=== PATIENT | female | born 1960 | race Caucasian/White ===

== ENCOUNTER 2018-03-25 14:21 | Emergency (ER) | payer SELFPAY ==
[2018-03-25 15:19] LABS: ABSOLUTE BASOPHILS # (AUTO) 0.1 10^3/uL (0.0-0.2); ABSOLUTE LYMPHOCYTES (AUTO) 1.7 10^3/uL (0.5-4.7); ABSOLUTE MONOCYTES (AUTO) 0.3 10^3/uL (0.1-1.4); ABSOLUTE NEUT (AUTO) 3.4 10^3/uL (1.7-8.2); BASOPHILS % (AUTO) 1.2 % (0-2); EOSINOPHILS % (AUTO) 0.9 % (0-6); HEMATOCRIT 35.4 % (36.0-47.0); HEMOGLOBIN 12.2 g/dL (12.0-15.5); LYMPHOCYTES % (AUTO) 30.2 % (13-45); MEAN CORPUSCULAR HEMOGLOBIN 30.1 pg (27.0-33.4); MEAN CORPUSCULAR HGB CONC 34.5 g/dL (32.0-36.0); MEAN CORPUSCULAR VOLUME 87 fl (80-97); MONOCYTES % (AUTO) 5.7 % (3-13); PLATELET COUNT 296 10^3/uL (150-450); RED BLOOD COUNT 4.05 10^6/uL (3.72-5.28); RED CELL DISTRIBUTION WIDTH 13.2 % (11.5-14.0); TOTAL CELLS COUNTED % (AUTO) 100 %; WHITE BLOOD COUNT 5.5 10^3/uL (4.0-10.5)
--- NOTE | 2018-03-25 15:39 | ER Document Report ---
ED General - General Chief Complaint: Neck Problem Stated Complaint: NECK PAIN Time Seen by Provider: 03/25/18 14:40 Primary Care Provider: JAYNA ABRAHAM [Primary Care Provider] - Follow up as needed TRAVEL OUTSIDE OF THE [place] IN LAST 30 DAYS: No - HPI Notes: Patient is a 58-year-old female that presents to the emergency department for chief complaint of left neck mass. Patient noticed swelling on the left side of her neck about 1 week ago. She states it minimally fluctuates in size but has not significantly changed since she first noticed it. She states yesterday there was an aching sensation over her left face and neck which has resolved today. She denies any redness or drainage from the area. She denies any injury to the area. She denies any difficulty breathing or swallowing. She denies any chest pain, shortness of breath, fevers or chills. She has had upper respiratory congestion for the last few weeks and had been taking lplx-ivd-icixcre medications. Past Medical History: Negative Past Surgical History: , left knee surgery Social History: Quit tobacco in 2013. Occasional alcohol use. Denies drug use. Family History: Reviewed and noncontributory for presenting illness Allergies: Reviewed, see documented allergy list. REVIEW OF SYSTEMS: CONSTITUTIONAL : No fever No chills No diaphoresis No recent illness EENT: Neck mass No vision changes congestion No sore throat CARDIOVASCULAR: No chest pain No palpitations RESPIRATORY: No shortness of breath No cough No difficulty breathing GASTROINTESTINAL: No abdominal pain No nausea No vomiting No diarrhea GENITOURINARY: No dysuria No hematuria No difficulty urinating MUSCULOSKELETAL: No back pain No leg pain No arm pain SKIN: No rashes No lesions LYMPHATIC: No swollen, enlarged glands. NEUROLOGICAL: No lightheadedness No headache No weakness No paresthesias PSYCHIATRIC: No anxiety No depression PHYSICAL EXAMINATION: Vital signs reviewed, nursing noted reviewed. GENERAL: Well-appearing, well-nourished and in no acute distress. HEAD: Atraumatic, normocephalic. EYES: Eyes appear normal, extraocular movements intact, sclera anicteric, conjunctiva are normal. ENT: nares patent, oropharynx clear without exudates. Moist mucous membranes. NECK: Normal range of motion, supple, 5.5 cm x 4.5 cm soft mobile nontender left lateral neck mass LUNGS: No stridor breath sounds clear to auscultation bilaterally and equal. No wheezes rales or rhonchi. HEART: Regular rate and rhythm without murmurs ABDOMEN: Soft, nontender, normoactive bowel sounds. No rebound, guarding, or rigidity. No masses appreciated. EXTREMITIES: Nontender, good range of motion, no pitting or edema. NEUROLOGICAL: No focal neurological deficits. Moves all extremities spontaneously Motor and sensory grossly intact on exam. PSYCH: Normal mood, normal affect. SKIN: Warm, Dry, normal turgor, no rashes or lesions noted on exposed skin - Related Data Allergies/Adverse Reactions: No Known Allergies Allergy (Verified 03/25/18 14:22) Past Medical History - Social History Smoking Status: Former Smoker Chew tobacco use (# tins/day): No Frequency of alcohol use: Occasional Drug Abuse: None Family History: Reviewed & Not Pertinent Patient has suicidal ideation: No Patient has homicidal ideation: No Renal/ Medical History: Denies: Hx Peritoneal Dialysis Past Surgical History: Reports: Hx Section - x2, Hx Orthopedic Surgery - l knee Physical Exam - Vital signs Vitals: Temp Pulse Resp BP Pulse Ox 98.0 F 99 18 147/79 H 99 03/25/18 14:26 03/25/18 14:26 03/25/18 14:26 03/25/18 14:26 03/25/18 14:26 Course - Re-evaluation Re-evalutation: 03/25/18 15:38 Vitals reviewed. Nursing notes reviewed. Patient has a 4.5 x 5.5 cm left lateral neck mass that is soft without tenderness. She is in no respiratory distress and has no complaints of cough or difficulty breathing. Patient does have a history of tobacco use and CT will be obtained to evaluate this mass further. Patient has no leukocytosis or fever and does not appear acutely toxic. 03/25/18 17:17 CT scan shows an enlarged left lateral neck lymph node concerning for malignancy. Dr. Diaz was available and evaluated the patient in the emergency room. She will follow office for further workup next week. The remainder of her lab work today is unremarkable. She was discharged home in stable condition with return precautions. Laboratory 03/25/18 03/25/18 15:07 15:07 WBC 5.5 RBC 4.05 Hgb 12.2 Hct 35.4 L MCV 87 MCH 30.1 MCHC 34.5 RDW 13.2 Plt Count 296 Seg Neutrophils % 62.0 Lymphocytes % 30.2 Monocytes % 5.7 Eosinophils % 0.9 Basophils % 1.2 Absolute Neutrophils 3.4 Absolute Lymphocytes 1.7 Absolute Monocytes 0.3 Absolute Eosinophils 0.0 Absolute Basophils 0.1 Sodium 142.6 Potassium 3.8 Chloride 103 Carbon Dioxide 29 Anion Gap 11 BUN 18 Creatinine 0.77 Est GFR ( Amer) > 60 Est GFR (Non-Af Amer) > 60 Glucose 94 Calcium 9.9 Total Bilirubin 0.3 Direct Bilirubin 0.3 Neonat Total Bilirubin Not Reportable Neonat Direct Bilirubin Not Reportable Neonat Indirect Bili Not Reportable AST 24 ALT 24 Alkaline Phosphatase 73 Total Protein 7.5 Albumin 4.[address] 03/25/18 14:45 IMPRESSION: 3 x 3 x 2 cm left level 3 lymph node in the neck worrisome for malignancy. Left vocal cord paralysis - Vital Signs Vital signs: Temp Pulse Resp BP Pulse Ox 98.0 F 99 18 147/79 H 99 03/25/18 14:26 03/25/18 14:26 03/25/18 14:26 03/25/18 14:26 03/25/18 14:26 - Laboratory Result Diagrams: 03/25/18 15:07 03/25/18 15:07 Laboratory results interpreted by me: 03/25/18 15:07 Hct 35.4 L Discharge - Discharge Clinical Impression: Mass of left side of neck Condition: Stable Disposition: HOME, SELF-CARE Instructions: Growth or Mass, Pending Workup (OM) Additional Instructions: Please return to the emergency department if you have any worsening, or concern of your symptoms. Please return to the emergency department if you develop chest pain, difficulty breathing, severe abdominal pain, or ongoing vomiting. Please follow-up with your primary care physician in 2-3 days and any other recommended physicians. If prescribed, take all medications as directed. If you have any questions or concerns do not hesitate to return the emergency department for evaluation. Referrals: SOLANGE DIAZ MD [ACTIVE STAFF] - Follow up in 3-5 days
[2018-03-25 15:43] LABS: ALANINE AMINOTRANSFERASE 24 U/L (9-52); ALBUMIN 4.7 g/dL (3.5-5.0); ALKALINE PHOSPHATASE 73 U/L (38-126); ANION GAP 11 (5-19); ASPARTATE AMINO TRANSFERASE 24 U/L (14-36); BILIRUBIN,DIRECT 0.3 mg/dL (0.0-0.4); BILIRUBIN,TOTAL 0.3 mg/dL (0.2-1.3); BLOOD UREA NITROGEN 18 mg/dL (7-20); CALCIUM 9.9 mg/dL (8.4-10.2); CARBON DIOXIDE 29 mmol/L (22-30); CHLORIDE 103 mmol/L (98-107); GLUCOSE 94 mg/dL (75-110); POTASSIUM 3.8 mmol/L (3.6-5.0); SODIUM 142.6 mmol/L (137-145); TOTAL PROTEIN 7.5 g/dL (6.3-8.2)
--- NOTE | 2018-03-25 16:56 | RADIOLOGY REPORT (SQ) ---
EXAM DESCRIPTION: CT SOFT TISSUE NECK WITH COMPLETED DATE/TIME: 03/25/2018 4:38 pm REASON FOR STUDY: Left neck lymph node/smoking history COMPARISON: None. TECHNIQUE: Post IV contrasted scanning from skull base through lung apices with review of bone, soft tissue and lung windows. Reconstructed coronal and sagittal MPR images reviewed. All images stored on PACS. All CT scanners at this facility use dose modulation, iterative reconstruction, and/or weight based d osing when appropriate to reduce radiation dose to as low as reasonably achievable (ALARA). [facility]: Dose Right [facility]: CareDose [facility]: Dose Right [facility]: Teradose 4D [facility]: MD Revolution CONTRAST TYPE AND DOSE: contrast/concentration: Isovue 350.00 mg/ml; Total Contrast Delivered: 75.0 ml; Total Saline Delivered: 33.8 ml RENAL FUNCTION: Creatinine 0.8 RADIATION DOSE: CT Rad equipment meets quality standard of care and radiation dose reduction techniq ues were employed. CTDIvol: 15.6 mGy. DLP: 478 mGy-cm. . LIMITATIONS: None. FINDINGS: SKULL BASE: Inferior brain parenchyma unremarkable MAJOR SALIVARY GLANDS: No solid or cystic masses. No inflammatory changes. LYMPHADENOPATHY: A 3 cm craniocaudad by 3 cm AP x 2 cm transverse left level 3 lymph node is present on axial image 62 and coronal image 40. MUCOSAL MASSES OR ASYMMETRY: No mucosal masses or asymmetry. LARYNX/CORDS: Left vocal cord paralysis is suspected. Medial displacement of the left arytenoid cart ilage is present VASCULAR STRUCTURES: The major vessels are patent. LUNG APICES: Clear. BONES: Intact. THYROID: Normal size. No masses. PARANASAL SINUSES: Clear. OTHER: Images of the upper mediastinum and bilateral lung apices fell through the rosa isela unremarkabl e. No upper mediastinal masses or adenopathy IMPRESSION: 3 x 3 x 2 cm left level 3 lymph node in the neck worrisome for malignancy. Left vocal cord paralysis TECHNICAL DOCUMENTATION: JOB ID: [id number] Quality ID # [id number]: Final reports with documentation of one or more dose reduction techniques (e.g., Au tomated exposure control, adjustment of the mA and/or kV according to patient size, use of iterative reconstruction technique) 2010 [employer] All Rights Reserved Reading location - IP/workstation name: [email or web address]
--- NOTE | 2018-03-25 17:19 | ER Document Report ---
ED Medical Screen (RME) - General Chief Complaint: Neck Problem Stated Complaint: NECK PAIN Time Seen by Provider: 03/25/18 14:40 Primary Care Provider: JAYNA ABRAHAM [Primary Care Provider] - Follow up as needed TRAVEL OUTSIDE OF THE [place] IN LAST 30 DAYS: No - Related Data Allergies/Adverse Reactions: No Known Allergies Allergy (Verified 03/25/18 14:22) Physical Exam - Vital signs Vitals: Temp Pulse Resp BP Pulse Ox 98.0 F 99 18 147/79 H 99 03/25/18 14:26 03/25/18 14:26 03/25/18 14:26 03/25/18 14:26 03/25/18 14:26 Course - Vital Signs Vital signs: Temp Pulse Resp BP Pulse Ox 98.0 F 99 18 147/79 H 99 03/25/18 14:26 03/25/18 14:26 03/25/18 14:26 03/25/18 14:26 03/25/18 14:26 Doctor's Discharge - Discharge Referrals: JAYNA ABRAHAM [Primary Care Provider] - Follow up as needed
[2018-03-25 17:31] VITALS: BP 144/69
--- NOTE | 2018-03-25 18:03 | PDOC CONSULTATION ---
Consultation Consult Date: 03/25/18 Attending physician:: TOBY HAMILTON Consult reason:: Newly diagnosed left neck adenopathy History of Present Illness Admission Date/PCP: NO LOCALMD Patient complains of: New left neck adenopathy History of Present Illness: BLAIR FULTON is a 58 year old female with newly noted left neck adenopathy, she noticed this lymph node, about 10 days ago and has increased in size. Of note she has had what she feels like is a sinus infection over the last 3 weeks. She denies any weight loss, no fevers chills night sweats, no pain anywhere else. She does have a strong family history of cancer with her mother of breast cancer and a sister of liver cancer. CT of the neck was done which showed a 3 cm left cervical chain lymph node. There is a palpable abnormality 3 x 3 cm in the left neck. Past Medical History Medical History: None Past Surgical History Past Surgical History: Reports: Section - x2, Orthopedic Surgery - l knee Social History Smoking Status: Former Smoker Hx Recreational Drug Use: No Drugs: None Hx Prescription Drug Abuse: No - Advance Directive Resuscitation Status: Full Code Family History Family History: Other - Mother had breast cancer, sister had liver cancer Parental Family History Reviewed: Yes Children Family History Reviewed: Yes Sibling(s) Family History Reviewed.: Yes Medication/Allergy Allergies/Adverse Reactions: No Known Allergies Allergy (Verified 03/25/18 14:22) Review of Systems Constitutional: ABSENT: chills, fever(s), headache(s), weight gain, weight loss Eyes: ABSENT: visual disturbances Ears: ABSENT: hearing changes Cardiovascular: ABSENT: chest pain, dyspnea on exertion, edema, orthropnea, palpitations Respiratory: ABSENT: cough, hemoptysis Gastrointestinal: ABSENT: abdominal pain, constipation, diarrhea, hematemesis, hematochezia, nausea, vomiting Genitourinary: ABSENT: dysuria, hematuria Musculoskeletal: ABSENT: joint swelling Integumentary: ABSENT: rash, wounds Neurological: ABSENT: abnormal gait, abnormal speech, confusion, dizziness, focal weakness, syncope Psychiatric: ABSENT: anxiety, depression, homidical ideation, suicidal ideation Endocrine: ABSENT: cold intolerance, heat intolerance, polydipsia, polyuria Hematologic/Lymphatic: ABSENT: easy bleeding, easy bruising Physical Exam Vital Signs: Temp Pulse Resp BP Pulse Ox 98.0 F 99 18 144/69 H 98 03/25/18 14:26 03/25/18 14:26 03/25/18 17:30 03/25/18 17:30 03/25/18 17:30 Intake & Output 03/24/18 03/25/18 03/26/18 06:59 06:59 06:59 Weight 121.4 kg General appearance: PRESENT: no acute distress, well-developed, well-nourished Head exam: PRESENT: atraumatic, normocephalic Eye exam: PRESENT: conjunctiva pink, EOMI, PERRLA. ABSENT: scleral icterus Ear exam: PRESENT: normal external ear exam Mouth exam: PRESENT: moist, tongue midline Neck exam: ABSENT: carotid bruit, JVD, lymphadenopathy, thyromegaly Respiratory exam: PRESENT: clear to auscultation dario. ABSENT: rales, rhonchi, wheezes Cardiovascular exam: PRESENT: RRR. ABSENT: diastolic murmur, rubs, systolic murmur Pulses: PRESENT: normal dorsalis pedis pul Vascular exam: PRESENT: normal capillary refill GI/Abdominal exam: PRESENT: normal bowel sounds, soft. ABSENT: distended, guarding, mass, organolmegaly, rebound, tenderness Rectal exam: PRESENT: deferred Extremities exam: PRESENT: full ROM. ABSENT: calf tenderness, clubbing, pedal edema Neurological exam: PRESENT: alert, awake, oriented to person, oriented to place, oriented to time, oriented to situation, CN II-XII grossly intact. ABSENT: motor sensory deficit Psychiatric exam: PRESENT: appropriate affect, normal mood. ABSENT: homicidal ideation, suicidal ideation Skin exam: PRESENT: dry, intact, warm. ABSENT: cyanosis, rash Results Laboratory Results: 03/25/18 15:07 03/25/18 15:07 03/25/18 03/25/18 15:07 15:07 WBC 5.5 RBC 4.05 Hgb 12.2 Hct 35.4 L MCV 87 MCH 30.1 MCHC 34.5 RDW 13.2 Plt Count 296 Seg Neutrophils % 62.0 Lymphocytes % 30.2 Monocytes % 5.7 Eosinophils % 0.9 Basophils % 1.2 Absolute Neutrophils 3.4 Absolute Lymphocytes 1.7 Absolute Monocytes 0.3 Absolute Eosinophils 0.0 Absolute Basophils 0.1 Sodium 142.6 Potassium 3.8 Chloride 103 Carbon Dioxide 29 Anion Gap 11 BUN 18 Creatinine 0.77 Est GFR ( Amer) > 60 Est GFR (Non-Af Amer) > 60 Glucose 94 Calcium 9.9 Total Bilirubin 0.3 AST 24 ALT 24 Alkaline Phosphatase 73 Total Protein 7.5 Albumin 4.7 Impressions: Soft Tissue Neck CT 03/25/18 14:45 IMPRESSION: 3 x 3 x 2 cm left level 3 lymph node in the neck worrisome for malignancy. Left vocal cord paralysis Status: Image reviewed by me Assessment & Plan - Diagnosis (1) Mass of left side of neck Is this a current diagnosis for this admission?: Yes Plan: Lymphadenopathy noted, we will see patient back in the office and plan for CT of the chest abdomen pelvis. Depending on that we will decide on biopsy route. We also will decide whether PET/CT will be needed. - Time Time Spent: Greater than 70 Minutes
== END 2018-03-25 17:31 | disposition home or self-care (01) ==
LOC: ER 14:21
DX: R59.0 Localized enlarged lymph nodes (principal); J38.01 Paralysis of vocal cords and larynx, unilateral; Z87.891 Personal history of nicotine dependence; Z80.0 Family history of malignant neoplasm of digestive organs; Z80.3 Family history of malignant neoplasm of breast
CPT/HCPCS: 36415; 70491; 80053; 85025; 99284

== ENCOUNTER → 2018-04-11 | Outpatient (CLI) | payer OTHER ==
--- NOTE | 2018-04-12 08:53 | RADIOLOGY REPORT (SQ) ---
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 RADIONUCLIDE AND DOSE: 11.9 mCi F18 FDG The route of agent administration: Intravenous FASTING BLOOD SUGAR: 75 mg/dl CONTRAST TYPE AND DOSE: No CT contrast given. TECHNIQUE: Blood glucose level was verified. Above dose of FDG was injected intravenously. 2-D seg mented attenuation correction images were obtained from the base of the skull to the midthighs. Nonc ontrast CT images were obtained for attenuation correction and fusion with emission images. CT image s were performed without oral or intravenous contrast and are not sensitive for parenchymal lesions. A series of overlapping emission PET images were obtained. Images reviewed and manipulated at [facility] work station by the radiologist. Images stored on PACS. LIMITATIONS: None. FINDINGS: HEAD AND NECK: 3 cm left level 3 node 19.6 SUV. CHEST: No areas of abnormal metabolic activity in the chest. ABDOMEN AND PELVIS: No areas of abnormal metabolic activity in the abdomen or pelvis. Expected physi ologic activity is present in the genitourinary system and bowel. PROXIMAL LOWER EXTREMITIES: No areas of abnormal metabolic activity in the soft tissues of the lower extremities. BONES: No abnormal metabolic activity in the visualized skeleton. ADDITIONAL CT FINDINGS: Subtle medial displacement of the left arytenoid cartilage. OTHER: Blood pool activity 2.6 SUV, liver 3.1 SUV. IMPRESSION: Hypermetabolic left cervical node. No evidence of metastatic disease. TECHNICAL DOCUMENTATION: JOB ID: [id number] [employer] All Rights Reserved Reading location - IP/workstation name: [email or web address]
== END ==
LOC: RAD 17:42
PROVIDERS: ATTEND Internal Medicine
DX: C85.83 Other specified types of non-Hodgkin lymphoma, intra-abdominal lymph nodes (principal); R59.1 Generalized enlarged lymph nodes
CPT/HCPCS: 78815; A9552

== ENCOUNTER → 2018-04-20 | Outpatient (CLI) | payer OTHER ==
--- NOTE | 2018-04-20 12:12 | RADIOLOGY REPORT (SQ) ---
EXAM DESCRIPTION: CHEST PA/LATERAL COMPLETED DATE/TIME: 04/20/2018 12:04 pm REASON FOR STUDY: PRE-OP COMPARISON: None. EXAM PARAMETERS: NUMBER OF VIEWS: two views TECHNIQUE: Digital Frontal and Lateral radiographic views of the chest acquired. RADIATION DOSE: NA LIMITATIONS: none FINDINGS: LUNGS AND PLEURA: No opacities, masses or pneumothorax. No pleural effusion. MEDIASTINUM AND HILAR STRUCTURES: No masses or contour abnormalities. HEART AND VASCULAR STRUCTURES: Heart normal size. No evidence for failure. BONES: No acute findings. HARDWARE: None in the chest. OTHER: No other significant finding. IMPRESSION: 1. NO SIGNIFICANT RADIOGRAPHIC FINDING IN THE CHEST. TECHNICAL DOCUMENTATION: JOB ID: [id number] [employer]- All Rights Reserved Reading location - IP/workstation name: [email or web address]
[2018-04-20 13:37] LABS: HEMATOCRIT 37.4 % (36.0-47.0); MEAN CORPUSCULAR HEMOGLOBIN 30.5 pg (27.0-33.4); MEAN CORPUSCULAR HGB CONC 34.6 g/dL (32.0-36.0); MEAN CORPUSCULAR VOLUME 88 fl (80-97); PLATELET COUNT 279 10^3/uL (150-450); RED BLOOD COUNT 4.25 10^6/uL (3.72-5.28); RED CELL DISTRIBUTION WIDTH 13.2 % (11.5-14.0); WHITE BLOOD COUNT 6.1 10^3/uL (4.0-10.5)
[2018-04-20 14:14] LABS: ANION GAP 11 (5-19); BLOOD UREA NITROGEN 20 mg/dL (7-20); CALCIUM 10.4 mg/dL (8.4-10.2); CARBON DIOXIDE 22 mmol/L (22-30); CHLORIDE 105 mmol/L (98-107); GLUCOSE 95 mg/dL (75-110); POTASSIUM 4.3 mmol/L (3.6-5.0); SODIUM 138.4 mmol/L (137-145)
--- NOTE | 2018-04-20 15:59 | EKG REPORT ---
SEVERITY:- NORMAL ECG - SINUS RHYTHM : Confirmed by: Joni Samaneigo MD 20-Apr-2018 15:58:26
== END ==
LOC: OD 11:52
PROVIDERS: ATTEND Surgery
DX: Z01.810 Encounter for preprocedural cardiovascular examination (principal); Z01.812 Encounter for preprocedural laboratory examination; Z01.818 Encounter for other preprocedural examination
CPT/HCPCS: 36415; 71046; 80048; 85027; 93005; 93010

== ENCOUNTER 2018-04-27 06:48 | Day surgery (SDC) | payer OTHER ==
[~2018-04-27 06:48] MED LIST: CEFAZOLIN 2 GM/D5W RTU 2 GM/50 ML RTUPB IV ONE; CEFAZOLIN 2 GM/D5W RTU 2 GM/50 ML RTUPB IV PRN; FENTANYL CITRATE INJ/PF 100 MCG/2 ML AMPUL ONE; IBUPROFEN 800 MG in NORMAL SALINE 250 ML IV PRN; LACTATED RINGERS 1000 ML IV PRN; LIDOCAINE 0.5% INJ-PF (5 MG/ML) 50 ML SDV SUBCUT PRN; MIDAZOLAM 2 MG/2 ML INJ ONE; ONDANSETRON HCL INJ/PF 4 MG/2 ML SDV ONE; PROPOFOL INJ 200 MG/20 ML VIAL IV ONE
[2018-04-27] MEDS ORDERED: BUPIVACAINE HCL 0.25 % INJ/PF (2.5 MG/1 ML) 30 ML VIAL ONE (07:52)
[2018-04-27] MEDS ORDERED: MEPERIDINE HCL/PF INJ 25 MG/1 ML DISP.SYRIN IV PRN (08:36)
[2018-04-27] MEDS ORDERED: DIPHENHYDRAMINE HCL 50 MG/ML VIAL IV PRN (08:36)
[2018-04-27] MEDS ORDERED: PROMETHAZINE HCL INJ 25 MG/1 ML VIAL IV PRN (08:36)
[2018-04-27] MEDS ORDERED: MORPHINE SULFATE 10 MG/ML INJ IV PRN (08:36)
[2018-04-27] MEDS ORDERED: FENTANYL CITRATE INJ/PF 100 MCG/2 ML AMPUL IV PRN ×3 (08:36)
--- NOTE | 2018-04-27 09:36 | Discharge Summary ---
Discharge Summary (SDC) - Discharge Final Diagnosis: enlarged deep cervical lymph node on the left Date of Surgery: 04/27/18 Discharge Date: 04/27/18 Condition: Stable Treatment or Instructions: Discharge home. Diet as tolerated. Activity: Nonstrenuous. Follow-up with me in 7-10 days. [place] 5/325 mg p.o. every 6 hours as needed for pain. Okay to shower in 48 hours. No tub baths or swimming pools times 2 weeks. Referrals: [facility] [Primary Care Provider] - Discharge Diet: As Tolerated Respiratory Treatments at Home: Deep Breathing/Coughing, Incentive Spirometer Discharge Activity: Balance Activity w/Rest - I am working on a job doing I am doing her stuff for now Report the Following to Your Physician Immediately: Shortness of Breath, Nausea, Vomiting, Fever over 101 Degrees, Unusual Bleeding, Redness, Swelling, Warmth
[2018-04-27] MEDS ORDERED: HYDROCODONE/ACETAMINOPHEN 5-325 MG TABLET PO PRN (09:37)
[2018-04-27] MEDS ORDERED: HYDROCODONE/ACETAMINOPHEN 5-325 MG TABLET ONE (10:06)
[2018-04-27 11:14] VITALS: BP 133/80
--- NOTE | 2018-04-27 11:21 | Operative Report ---
Nonrecallable Operative Report DATE OF SURGERY: 04/27/18 PREOPERATIVE DIAGNOSIS: Enlarged deep cervical lymph node, suspicious for malignancy POSTOPERATIVE DIAGNOSIS: Same OPERATION: Excisional biopsy of deep cervical lymph node on the left SURGEON: MIKA BRAGG ANESTHESIA: GA TISSUE REMOVED OR ALTERED: Deep cervical lymph node on the left COMPLICATIONS: None apparent ESTIMATED BLOOD LOSS: 20 cc PROCEDURE: Drains/implants: None. Procedure in detail: After informed consent was obtained, the patient was brought to the operating room and laid in the supine position. The area of the neck and chest were prepped and draped in a normal sterile fashion. A 4 cm incision was created in the left anterior neck. Dissection was carried through the platysma. Subplatysmal flaps were raised superiorly and inferiorly. The sternocleidomastoid muscle was retracted laterally. Dissection was carried out between the sternocleidomastoid muscle and the trachea. The enlarged lymph node was easily identified. It appeared to be a deep cervical lymph node, immediately adjacent to the jugular vein. Very carefully, the lymph node was from the surrounding structures using sharp and blunt dissection. There was a dense inflammatory/desmoplastic reaction present. Once the lymph node was completely freed, it was passed off the field and sent to pathology. Hemostasis was achieved using 3-0 Vicryl suture ligation. The cavity was then marked with clips. The superior, inferior, medial and lateral borders were marked with medium hemoclips. Once this was completed, the platysma was closed using 3-0 Vicryl suture in simple interrupted fashion. The overlying skin was closed using 4-0 Vicryl Rapide suture in subcuticular fashion. A dressing was placed, and the procedure was concluded. All sponge, instrument, and needle counts were correct x2. Condition: Stable.
[2018-04-27] MEDS ORDERED: SUCCINYLCHOLINE CHLORIDE INJ 200 MG/10 ML VIAL ONE (12:48)
[2018-04-27] MEDS ORDERED: ROCURONIUM BROMIDE INJ 50 MG/5 ML VIAL IV ONE (12:48)
== END 2018-04-27 11:05 | disposition home or self-care (01) ==
LOC: OROUT 06:48
PROVIDERS: ATTEND Surgery
DX: C77.0 Secondary and unspecified malignant neoplasm of lymph nodes of head, face and neck (principal); R05 Cough; Z79.82 Long term (current) use of aspirin; Z79.1 Long term (current) use of non-steroidal anti-inflammatories (NSAID); Z86.73 Personal history of transient ischemic attack (TIA), and cerebral infarction without residual deficits
CPT/HCPCS: 38510; 88305 ×2; J2250; J3490; J3010; J0330; J2405; J7050; J2704; J0690; J1741; 320; 88184; 88185; 88233; 88262

== ENCOUNTER 2018-05-05 09:57 | Day surgery (SDC) | payer OTHER ==
[~2018-05-05 09:57] MED LIST changes: -CEFAZOLIN 2 GM/D5W RTU 2 GM/50 ML RTUPB IV PRN; -FENTANYL CITRATE INJ/PF 100 MCG/2 ML AMPUL ONE; -IBUPROFEN 800 MG in NORMAL SALINE 250 ML IV PRN; -LACTATED RINGERS 1000 ML IV PRN; -LIDOCAINE 0.5% INJ-PF (5 MG/ML) 50 ML SDV SUBCUT PRN; -MIDAZOLAM 2 MG/2 ML INJ ONE; -ONDANSETRON HCL INJ/PF 4 MG/2 ML SDV ONE; -PROPOFOL INJ 200 MG/20 ML VIAL IV ONE
[2018-05-05] MEDS ORDERED: GLYCOPYRROLATE 1 MG/5 ML SYRINGE ONE (10:30)
[2018-05-05] MEDS ORDERED: ROCURONIUM BROMIDE INJ 50 MG/5 ML VIAL IV ONE (10:30)
[2018-05-05] MEDS ORDERED: DEXAMETHASONE SOD PHOSPHATE INJ 4 MG/1 ML VIAL ONE (10:30)
[2018-05-05] MEDS ORDERED: ONDANSETRON HCL INJ/PF 4 MG/2 ML SDV ONE (10:30)
[2018-05-05] MEDS ORDERED: SUCCINYLCHOLINE CHLORIDE INJ 200 MG/10 ML VIAL ONE (10:30)
[2018-05-05] MEDS ORDERED: BUPIVACAINE HCL 0.5%/EPI 1:200000 INJ 1.8 ML CARTRIDGE ONE ×2 (11:17→11:46)
[2018-05-05] MEDS ORDERED: ACETAMINOPHEN 1,000 MG/100 ML RTUPB IV ONE (11:58)
[2018-05-05] MEDS ORDERED: MIDAZOLAM 2 MG/2 ML INJ ONE (11:58)
[2018-05-05] MEDS ORDERED: FENTANYL CITRATE INJ/PF 100 MCG/2 ML AMPUL ONE ×3 (11:58→18:51)
[2018-05-05] MEDS ORDERED: PROPOFOL INJ 200 MG/20 ML VIAL IV ONE (11:58)
--- NOTE | 2018-05-05 15:01 | RADIOLOGY REPORT (SQ) ---
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 TECHNIQUE: Dynamic and static malik-scale images acquired of the LEFT NECK SOFT TISSUES. Additional cine loop images were obtained. LIMITATIONS: None. FINDINGS: Patient is post left neck lymph node dissection, with surgical biopsy of a 3 cm lymph node deep to the sternocleidomastoid. On today's ultrasound exam, a bilobed complex fluid collection is present deep to the left sternoclei domastoid muscle, likely a hematoma/seroma. Abscess could not entirely be excluded. Along the more superior portion, this hematoma appears more solid, measuring about 2.4 x 2 cm in size. Along its in ferior aspect, the hematoma is fluid with septations measuring 3 x 4 cm in size. On the cine loop images, the left carotid artery and jugular vein are grossly patent. Findings discussed with Dr. Montez IMPRESSION: Dumbbell-shaped complex fluid collection deep to the left sternocleidomastoid muscle lik sandy represents a hematoma. Abscess could not entirely be excluded. Findings discussed with Dr. Nehemias maldonado TECHNICAL DOCUMENTATION: JOB ID: [id number] [employer]- All Rights Reserved Reading location - IP/workstation name: [email or web address]
[2018-05-05] MEDS ORDERED: OXYMETAZOLINE HCL 0.05% NASAL SPRAY 15 ML BOTTLE ONE (15:39)
[2018-05-05] MEDS ORDERED: PROMETHAZINE HCL INJ 25 MG/1 ML VIAL IV PRN ×2 (15:43→18:49)
[2018-05-05] MEDS ORDERED: FENTANYL CITRATE INJ/PF 100 MCG/2 ML AMPUL IV PRN ×5 (15:43→18:49)
[2018-05-05] MEDS ORDERED: DIPHENHYDRAMINE HCL 50 MG/ML VIAL IV PRN ×2 (15:43→18:49)
[2018-05-05] MEDS ORDERED: MEPERIDINE HCL/PF INJ 25 MG/1 ML DISP.SYRIN IV PRN ×2 (15:43→18:49)
[2018-05-05] MEDS ORDERED: ONDANSETRON HCL INJ/PF 4 MG/2 ML SDV IV PRN ×2 (18:49→18:54)
[2018-05-05] MEDS ORDERED: MORPHINE SULFATE 10 MG/ML INJ IV PRN (18:49)
[2018-05-05] MEDS: FENTANYL CITRATE INJ/PF 100 MCG/2 ML AMPUL IV PRN ×2 (18:53→19:05)
[2018-05-05] MEDS ORDERED: OXYCODONE-ACETAMINOPHEN 5-325 MG TABLET PO PRN (18:54)
[2018-05-05] MEDS ORDERED: OXYCODONE-ACETAMINOPHEN 5-325 MG TABLET ONE ×2 (19:57→20:15)
[2018-05-05 21:09] VITALS: BP 142/66
--- NOTE | 2018-05-05 21:54 | OPERATIVE REPORT E ---
Operative Report NAME: BLAIR FULTON : 1960 AGE: 58Y DATE OF SURGERY: 05/05/2018 ROOM: PREOPERATIVE DIAGNOSES: 1. LEFT NECK METASTATIC SQUAMOUS CELL CARCINOMA. 2. LEFT NECK HEMATOMA/SEROMA. 3. HISTORY OF RECENT LEFT NECK SURGERY. 4. CHRONIC TONSILLITIS. 5. BILATERAL TONSIL STONES. POSTOPERATIVE DIAGNOSES: 1. LEFT NECK METASTATIC SQUAMOUS CELL CARCINOMA. 2. LEFT NECK HEMATOMA/SEROMA. 3. HISTORY OF RECENT LEFT NECK SURGERY. 4. CHRONIC TONSILLITIS. 5. BILATERAL TONSIL STONES. OPERATION PERFORMED: 1. Microscopic direct laryngoscopy with directed biopsies. 2. Upper airway rigid endoscopy with directed biopsies. 3. Bilateral tonsillectomy, patient age greater than 12. 4. Left neck hematoma/seroma evacuation and management. SURGEON: SALLIE GALVAN D.O. ANESTHESIA: General endotracheal tube. ANESTHESIA STAFF: Nahid CLARK and Eunice CLARK. ESTIMATED BLOOD LOSS: 15 mL. FLUIDS: None. COMPLICATIONS: None. DRAINS: One modified Mickie drain at the left neck. NEEDLE COUNT: Verified. SPONGE COUNT: Verified. MATERIALS FORWARDED SPECIMEN: 1. Multiple left subglottic biopsy specimens. 2. Left and right pyriform sinus biopsy specimens. 3. Right hypopharyngeal lateral aspect with lipoma appearing process, which was biopsied. 4. Left and right tonsillar tissue. 5. Left soft palate/lateral tongue mucosal abnormality. 6. Nasopharynx midline with area of erythema, which was biopsied. 7. Left and right base of tongue biopsies. FINDINGS: 1. There was left subglottic fullness. 2. The tonsils were noted to be 2+ in size, or endophytic in nature, or cryptic in appearance, and there was extensive tonsillar debris present bilateral. 3. Left lateral soft palate/lateral tongue mucosal abnormality approximately 1 cm x 0.5 cm in size. 4. Nasopharynx midline with area of mild focal erythema. 5. Left neck with approximately 6 x 6 cm seroma/hematoma which was also noted immediately preoperatively on ultrasound evaluation. 6. Otherwise, the patient was with significant soft palatal tissue redundancy as well as significant redundant oropharyngeal and hypopharyngeal tissues. There was base of tongue fullness. The patient was edentulous. INDICATIONS: This is a 58-year-old white female patient who was seen and evaluated in the [facility] office. The patient had been referred by [facility] Oncology, Dr. Vasquez. The patient had noted a left neck mass and had been referred to oncology for further evaluation. The patient underwent PET/CT imaging with increased SUV activity at the left neck. There was concern for lymphoma and the patient was referred to general surgery for an excisional biopsy, which was performed last week. The approximately 3 x 3 cm size lymph node was positive for metastatic squamous cell carcinoma. The patient was then referred to ENT for evaluation to include endoscopy and directed biopsies. The patient upon endoscopic evaluation in clinic was noted to have an area of left subglottic fullness, which also corresponded to an area of increased SUV activity on recent PET/CT imaging. The recommendation and plan for panendoscopy, microscopic direct laryngoscopy with directed biopsies, and possible tonsillectomy was all discussed in detail with the patient. She voiced an understanding of the described surgical plan, agreed to proceed, and consent was obtained. In the preop holding area on the day of surgery the patient's left neck was noted to be even rios/more pronounced in size. There was concern for a seroma or hematoma process. The patient was sent for a STAT radiology ultrasound evaluation and the radiologist read the imaging out as an approximately 6 x 6 cm size seroma/hematoma process of the left neck. The patient underwent additional surgical counseling with recommendation for evacuation and management of the left neck process, which she voiced an understanding of and agreed with. The risks and complications of all the above mentioned procedures were all discussed in detail with the patient, which she voiced an understanding of, agreed to proceed with, and consent was obtained. DETAILS OF PROCEDURE: The patient was taken to the main operating room and was placed on the operating room table in the supine position. Appropriate monitors placed. Using mask and IV access general anesthesia was induced. The patient was transorally intubated without difficulty. At this point the patient was prepped and draped for microscopic direct laryngoscopy and upper airway endoscopy with directed biopsies. The patient had a mouthguard placed over her upper gums. A rigid laryngoscope was brought into position to visualize the vocal cords and the patient was placed into indirect suspension. The area of the left subglottic had multiple biopsies taken. Afrin-soaked neuro patties were placed. At this point the rigid endoscope was released from suspension. At this point the rigid endoscope was now utilized to perform directed biopsies of the left and right pyriform sinuses, of the right lipoma appearing process at the lateral hypopharynx, and of the bilateral base of tongue areas. At this point the rigid laryngoscope was removed. The microscope was withdrawn. All Afrin-soaked neuro patties were removed. At this point the patient had a [place] mouth gag inserted. It was opened and the patient was placed into suspension. A soft catheter was placed through the patient's nose to suspend the soft palate. At the left lateral soft palate the mucosal abnormality that was noted above was biopsied. Once complete the patient underwent a bilateral tonsillectomy utilizing the plasma knife, which was also used to provide adequate hemostasis. The patient at this point underwent biopsies of the nasopharynx in the midline, an area were the noted erythema was. Suction, electrocautery, along with adenoid packs was used to provide adequate hemostasis. At this point the soft catheter was released from the nose and removed and the [place] mouth gag was released from suspension. It was next reopened and there was again adequate hemostasis noted. The [place] mouth gag was then removed from the patient's mouth and there was no damage to the lips, gums, tongue, or inside of the mouth noted. At this point the Steri-Strips and Dermabond were removed from the patient's left neck and the area was infiltrated with local anesthetic with epinephrine. The patient was then prepped and draped in a sterile fashion for a left neck surgery. The incision site was opened as was the level of the platysma. At this point the seroma/hematoma was evacuated with an extensive area being drained. There were scattered areas of granulation tissue was oozing. Bipolar electrocautery was used to provide adequate hemostasis. Extensive irrigation was performed of the wound site with reasonable hemostasis being noted. At this point Surgicel was placed into the wound bed, followed by placement of a modified Mickie drain that was brought out through the skin level. The neck was closed in a layered fashion with Monocryl suture to reapproximate the platysmal level as well as the subcutaneous and deep dermal layers. The skin was reapproximated with 6-0 Prolene suture. The drain was secured at the skin level with suture. At this point bacitracin ointment was applied to the incision site followed by a Fluffs pressure dressing being applied. The patient was then returned to the anesthesia and was allowed to emerge from general anesthesia. The patient was extubated in the main operating room and was then transported to the postanesthesia recovery unit in stable condition. There were no complications. DICTATING PHYSICIAN: SALLIE GALVAN D.O. [id number] PHY#: [id number] 2016 ID: [id number] JOB#: [id number] ACCT: [id number] cc:SALLIE GALVAN D.O. >
== END 2018-05-05 21:00 | disposition home or self-care (01) ==
LOC: OROUT 09:57
PROVIDERS: ATTEND Otolaryngology
DX: C44.42 Squamous cell carcinoma of skin of scalp and neck (principal); J35.1 Hypertrophy of tonsils; R22.1 Localized swelling, mass and lump, neck; K21.9 Gastro-esophageal reflux disease without esophagitis; M54.2 Cervicalgia; Z86.73 Personal history of transient ischemic attack (TIA), and cerebral infarction without residual deficits; Z87.891 Personal history of nicotine dependence
CPT/HCPCS: 31535; 42826; 10140; 88304 ×2; 88305 ×2; 76536; J2250; J3490 ×4; J1100; J3010; J0330; J2405; J2704; J0690; J0131; 320

== ENCOUNTER 2018-06-10 08:07 | Outpatient (CLI) | payer OTHER ==
[~2018-06-10 08:07] MED LIST changes: -CEFAZOLIN 2 GM/D5W RTU 2 GM/50 ML RTUPB IV ONE; +CISPLATIN 86 MG in NORMAL SALINE 500 ML IV PRN; +DEXAMETHASONE 10 MG in NS 50 ML IV PRN; +FOSAPREPITANT 150 MG in NS 150 ML IV PRN; +FUROSEMIDE INJ/PF 20 MG/2 ML SDV IV PRN; +NORMAL SALINE 500 ML IV PRN; +PALONOSETRON 0.25 MG/5 ML SDV IV PRN
[2018-06-10 09:21] VITALS: BP 132/76
== END 2018-06-10 12:48 | disposition home or self-care (01) ==
LOC: II 08:07 → 5TH 08:22 → II 12:48
PROVIDERS: ATTEND Internal Medicine
DX: C76.0 Malignant neoplasm of head, face and neck (principal); Z51.11 Encounter for antineoplastic chemotherapy
CPT/HCPCS: 96413; 96415; 96367; 96375; 96360; 96361; J9060; J1940; J7040; J1100; J1453; J2469; J7050

== ENCOUNTER 2018-06-16 06:39 | Day surgery (SDC) | payer OTHER ==
[~2018-06-16 06:39] MED LIST changes: +CEFAZOLIN 2 GM/D5W RTU 2 GM/50 ML RTUPB IV ONE; +CEFAZOLIN 2 GM/D5W RTU 2 GM/50 ML RTUPB IV PRN; -CISPLATIN 86 MG in NORMAL SALINE 500 ML IV PRN; -DEXAMETHASONE 10 MG in NS 50 ML IV PRN; -FOSAPREPITANT 150 MG in NS 150 ML IV PRN; -FUROSEMIDE INJ/PF 20 MG/2 ML SDV IV PRN; -NORMAL SALINE 500 ML IV PRN; -PALONOSETRON 0.25 MG/5 ML SDV IV PRN; +RINGERS SOLUTION,LACTATED 1,000 ML IV PRN
[2018-06-16 07:20] LABS: ABSOLUTE LYMPHOCYTES (AUTO) 0.8 10^3/uL (0.5-4.7); ABSOLUTE MONOCYTES (AUTO) 0.6 10^3/uL (0.1-1.4); ABSOLUTE NEUT (AUTO) 5.8 10^3/uL (1.7-8.2); BASOPHILS % (AUTO) 0.3 % (0-2); EOSINOPHILS % (AUTO) 0.7 % (0-6); HEMATOCRIT 35.5 % (36.0-47.0); HEMOGLOBIN 11.9 g/dL (12.0-15.5); LYMPHOCYTES % (AUTO) 10.8 % (13-45); MEAN CORPUSCULAR HEMOGLOBIN 29.6 pg (27.0-33.4); MEAN CORPUSCULAR HGB CONC 33.6 g/dL (32.0-36.0); MEAN CORPUSCULAR VOLUME 88 fl (80-97); MONOCYTES % (AUTO) 7.9 % (3-13); PLATELET COUNT 379 10^3/uL (150-450); RED BLOOD COUNT 4.03 10^6/uL (3.72-5.28); RED CELL DISTRIBUTION WIDTH 12.8 % (11.5-14.0); SEGMENTED NEUTROPHILS % (AUTO) 80.3 % (42-78); TOTAL CELLS COUNTED % (AUTO) 100 %; WHITE BLOOD COUNT 7.3 10^3/uL (4.0-10.5)
[2018-06-16 07:48] LABS: ANION GAP 13 (5-19); BLOOD UREA NITROGEN 20 mg/dL (7-20); CALCIUM 10.5 mg/dL (8.4-10.2); CARBON DIOXIDE 30 mmol/L (22-30); CHLORIDE 97 mmol/L (98-107); GLUCOSE 102 mg/dL (75-110); POTASSIUM 4.3 mmol/L (3.6-5.0); SODIUM 140.3 mmol/L (137-145)
[2018-06-16] MEDS ORDERED: LIDOCAINE 0.5% INJ-PF (5 MG/ML) 50 ML SDV ONE (07:54)
[2018-06-16] MEDS ORDERED: FENTANYL CITRATE INJ/PF 100 MCG/2 ML AMPUL ONE (07:54)
[2018-06-16] MEDS ORDERED: MIDAZOLAM 2 MG/2 ML INJ ONE ×3 (07:54→08:47)
[2018-06-16] MEDS ORDERED: BACITRACIN INJ 50,000 UNIT VIAL ONE (07:55)
[2018-06-16 10:50] VITALS: BP 147/81
--- NOTE | 2018-06-16 11:05 | RADIOLOGY REPORT (SQ) ---
EXAM DESCRIPTION: PORTACATH INSERTION COMPLETED DATE/TIME: 06/16/2018 10:08 am REASON FOR STUDY: R22.1 NECK MASS R22.1 LOCALIZED SWELLING, MASS AND LUMP, NECK COMPARISON: None. FLUOROSCOPY TIME: 0.5 minutes 3 images saved to PACS. TECHNIQUE: Intra-operative images acquired during surgical procedure to evaluate progress. NUMBER OF IMAGES: 3 LIMITATIONS: None. FINDINGS: Intraoperative fluoroscopic images obtained to evaluate progress. Evidence of right inter nal jugular based chest port placement with catheter tip at SVC. Please see operative report for det pratima description. IMPRESSION: IMAGE(S) OBTAINED DURING PROCEDURE. COMMENT: Quality ID [id number]: Final reports for procedures using fluoroscopy that document radiation exp osure indices, or exposure time and number of fluorographic images (if radiation exposure indices are not available) Please consult full operative report of the attending physician for description of the procedure. TECHNICAL DOCUMENTATION: JOB ID: [id number] [employer]- All Rights Reserved Reading location - IP/workstation name: [email or web address]
[2018-06-16 12:37] LABS: ALANINE AMINOTRANSFERASE 31 U/L (9-52); ALBUMIN 4.2 g/dL (3.5-5.0); ALKALINE PHOSPHATASE 115 U/L (38-126); ANION GAP 12 (5-19); ASPARTATE AMINO TRANSFERASE 23 U/L (14-36); BILIRUBIN,DIRECT 0.4 mg/dL (0.0-0.4); BILIRUBIN,TOTAL 0.4 mg/dL (0.2-1.3); BLOOD UREA NITROGEN 19 mg/dL (7-20); CALCIUM 10.6 mg/dL (8.4-10.2); CARBON DIOXIDE 28 mmol/L (22-30); CHLORIDE 99 mmol/L (98-107); GLUCOSE 121 mg/dL (75-110); POTASSIUM 4.2 mmol/L (3.6-5.0); SODIUM 138.7 mmol/L (137-145); TOTAL PROTEIN 7.5 g/dL (6.3-8.2)
--- NOTE | 2018-06-16 14:37 | Discharge Summary ---
Discharge Summary (SDC) - Discharge Final Diagnosis: Head and neck cancer Date of Surgery: 06/16/18 Discharge Date: 06/16/18 Condition: Stable Forms: Sedation D/C Instructions, Discharge POC-Surgical Service Treatment or Instructions: Discharge home. Diet as tolerated. Activity: Nonstrenuous. Okay to use Mediport. Follow-up with me as needed. Referrals: MIKA BRAGG MD [ACTIVE STAFF] - (Follow up as needed) Discharge Diet: As Tolerated Respiratory Treatments at Home: Deep Breathing/Coughing, Incentive Spirometer Discharge Activity: Activity As Tolerated Home Care Assistance: None Needed Report the Following to Your Physician Immediately: Shortness of Breath, Nausea, Vomiting, Increase in Pain, Fever over 101 Degrees, Unusual Bleeding
--- NOTE | 2018-06-16 14:42 | Operative Report ---
Nonrecallable Operative Report DATE OF SURGERY: 06/16/18 PREOPERATIVE DIAGNOSIS: Head and neck cancer POSTOPERATIVE DIAGNOSIS: Same as above OPERATION: 1. Ultrasound-guided central venous puncture. 2. Right internal jugular vein Mediport placement. SURGEON: MIKA BRAGG ANESTHESIA: Moderate Sedation TISSUE REMOVED OR ALTERED: None COMPLICATIONS: None apparent ESTIMATED BLOOD LOSS: Minimal PROCEDURE: Drains/implants: Right IJ Mediport. Procedure in detail: After informed consent was obtained, the patient was brought into the Principal Programmer and laid in the supine position. The area of the right neck and chest were prepped and draped in a normal sterile fashion. An ultrasound was used to identify the right internal jugular vein. It was compressible with normal flow. Under direct ultrasonic guidance the supplied access needle was used to cannulate the right internal jugular vein. Dark venous, nonpulsatile blood was returned in the syringe. The wire was inserted into the lumen of the vein easily. The wire was confirmed to be within the vein using both ultrasonography as well as fluoroscopy. Next, a separate incision was created on the right chest to accommodate the Mediport hub. The catheter was tunneled from the Mediport hub site to the needle insertion site. Next the dilator and breakaway sheath were inserted over the wire. This was done under direct fluoroscopic guidance. The dilator and wire were then removed, leaving the sheath within the superior vena cava. Next the catheter was inserted into the breakaway sheath. The sheath was cracked and pulled away, leaving the catheter within the SVC. The catheter was pulled back to an appropriate level and trimmed to length. The Mediport hub was attached, and buried in the pocket. The Mediport hub was sutured to the chest wall using 3-0 Vicryl suture. The subcutaneous tissue was closed using 3-0 Vicryl suture. The overlying skin was closed using 4-0 Vicryl Rapide suture in subcuticular fashion. The Mediport was then accessed and flushed with heparinized saline. Dressings were placed, and the procedure was concluded. All sponge, instrument, and needle counts were correct. Condition: Stable.
== END 2018-06-16 10:40 | disposition home or self-care (01) ==
LOC: CCL 06:39
PROVIDERS: ATTEND Surgery
DX: C76.0 Malignant neoplasm of head, face and neck (principal); R05 Cough; Z86.73 Personal history of transient ischemic attack (TIA), and cerebral infarction without residual deficits; Z79.82 Long term (current) use of aspirin
CPT/HCPCS: 36415; 85025; 80048; 80053; 36561; 76937; 77001; C1788; J2250; J3490 ×2; J3010; J1644; J0690

== ENCOUNTER 2018-06-17 08:26 | Outpatient (CLI) | payer OTHER ==
[~2018-06-17 08:26] MED LIST changes: -CEFAZOLIN 2 GM/D5W RTU 2 GM/50 ML RTUPB IV ONE; -CEFAZOLIN 2 GM/D5W RTU 2 GM/50 ML RTUPB IV PRN; +CISPLATIN 85 MG in NORMAL SALINE 500 ML IV PRN; +DEXAMETHASONE 10 MG in NS 50 ML IV PRN; +FOSAPREPITANT 150 MG in NS 150 ML IV PRN; +FUROSEMIDE INJ/PF 20 MG/2 ML SDV IV PRN; +NORMAL SALINE 500 ML @ KVO IV PRN; +PALONOSETRON 0.25 MG/5 ML VIAL IV PRN; -RINGERS SOLUTION,LACTATED 1,000 ML IV PRN
[2018-06-17 11:09] VITALS: BP 110/67
== END 2018-06-17 13:30 | disposition home or self-care (01) ==
LOC: II 08:26 → 5TH 08:28 → II 13:30
PROVIDERS: ATTEND Internal Medicine
PROC: 3E04305 Introduction of Other Antineoplastic into Central Vein, Percutaneous Approach (ICD-10-PCS; principal; 2018-06-17)
PROC: 3E0433Z Introduction of Anti-inflammatory into Central Vein, Percutaneous Approach (ICD-10-PCS; 2018-06-17)
PROC: 3E043GC Introduction of Other Therapeutic Substance into Central Vein, Percutaneous Approach (ICD-10-PCS; 2018-06-17)
DX: Z51.11 Encounter for antineoplastic chemotherapy (principal); C76.0 Malignant neoplasm of head, face and neck; D64.81 Anemia due to antineoplastic chemotherapy
CPT/HCPCS: 96413; 96415; 96365; 96366; 96374; 96375; 96360; 96361; J9060; J1940; J7050; J7040; J1100; J1642; J1453; J2469; 96367

== ENCOUNTER 2018-06-22 08:16 | Outpatient (CLI) | payer OTHER ==
[~2018-06-22 08:16] MED LIST changes: -CISPLATIN 85 MG in NORMAL SALINE 500 ML IV PRN; -DEXAMETHASONE 10 MG in NS 50 ML IV PRN; -FOSAPREPITANT 150 MG in NS 150 ML IV PRN; -FUROSEMIDE INJ/PF 20 MG/2 ML SDV IV PRN; +NORMAL SALINE 1000 ML 1,000 ML IV PRN; -NORMAL SALINE 500 ML @ KVO IV PRN; -PALONOSETRON 0.25 MG/5 ML VIAL IV PRN; +PROMETHAZINE HCL INJ 25 MG/1 ML VIAL IV PRN
[2018-06-22 09:42] VITALS: BP 136/72
== END 2018-06-22 11:23 | disposition home or self-care (01) ==
LOC: II 08:16 → 5TH 08:23 → II 11:23
PROVIDERS: ATTEND Internal Medicine
PROC: 3E0437Z Introduction of Electrolytic and Water Balance Substance into Central Vein, Percutaneous Approach (ICD-10-PCS; principal; 2018-06-22)
PROC: 3E043GC Introduction of Other Therapeutic Substance into Central Vein, Percutaneous Approach (ICD-10-PCS; 2018-06-22)
DX: E86.0 Dehydration (principal); R11.0 Nausea
CPT/HCPCS: 96374; 96375; 96360; 96361; J2550; J1642

== ENCOUNTER 2018-06-24 08:14 | Outpatient (CLI) | payer OTHER ==
[~2018-06-24 08:14] MED LIST changes: +CISPLATIN 85 MG in NORMAL SALINE 500 ML IV PRN; +DEXAMETHASONE 10 MG in NS 50 ML IV PRN; +FOSAPREPITANT 150 MG in NS 150 ML IV PRN; +FUROSEMIDE INJ/PF 20 MG/2 ML SDV IV PRN; -NORMAL SALINE 1000 ML 1,000 ML IV PRN; +NORMAL SALINE 500 ML @ KVO IV PRN; +PALONOSETRON 0.25 MG/5 ML VIAL IV PRN; -PROMETHAZINE HCL INJ 25 MG/1 ML VIAL IV PRN
[2018-06-24 08:45] VITALS: BP 115/59
== END 2018-06-24 12:18 | disposition home or self-care (01) ==
LOC: II 08:14 → 5TH 08:15 → II 12:18
PROVIDERS: ATTEND Internal Medicine
PROC: 3E04305 Introduction of Other Antineoplastic into Central Vein, Percutaneous Approach (ICD-10-PCS; principal; 2018-06-24)
PROC: 3E0433Z Introduction of Anti-inflammatory into Central Vein, Percutaneous Approach (ICD-10-PCS; 2018-06-24)
PROC: 3E043GC Introduction of Other Therapeutic Substance into Central Vein, Percutaneous Approach (ICD-10-PCS; 2018-06-24)
DX: Z51.11 Encounter for antineoplastic chemotherapy (principal); C76.0 Malignant neoplasm of head, face and neck
CPT/HCPCS: 96413; 96367; 96374; 96375; 96360; J9060; J1940; J7050; J7040; J1100; J1642; J1453; J2469

== ENCOUNTER 2018-06-29 08:07 | Outpatient (CLI) | payer OTHER ==
[~2018-06-29 08:07] MED LIST changes: -CISPLATIN 85 MG in NORMAL SALINE 500 ML IV PRN; -DEXAMETHASONE 10 MG in NS 50 ML IV PRN; -FOSAPREPITANT 150 MG in NS 150 ML IV PRN; -FUROSEMIDE INJ/PF 20 MG/2 ML SDV IV PRN; +NORMAL SALINE 1000 ML 1,000 ML IV PRN; -NORMAL SALINE 500 ML @ KVO IV PRN; -PALONOSETRON 0.25 MG/5 ML VIAL IV PRN; +PROMETHAZINE HCL INJ 25 MG/1 ML VIAL IV PRN
[2018-06-29 08:39] VITALS: BP 128/70
== END 2018-06-29 09:33 | disposition home or self-care (01) ==
LOC: II 08:07 → 5TH 08:09 → II 09:33
PROVIDERS: ATTEND Internal Medicine
PROC: 3E0437Z Introduction of Electrolytic and Water Balance Substance into Central Vein, Percutaneous Approach (ICD-10-PCS; principal; 2018-06-29)
PROC: 3E043GC Introduction of Other Therapeutic Substance into Central Vein, Percutaneous Approach (ICD-10-PCS; 2018-06-29)
DX: E86.0 Dehydration (principal); R11.0 Nausea
CPT/HCPCS: 96374; 96375; 96360; J2550; J1642; 96361

== ENCOUNTER 2018-07-01 08:12 | Outpatient (CLI) | payer OTHER ==
[~2018-07-01 08:12] MED LIST changes: +CISPLATIN 85 MG in NORMAL SALINE 500 ML IV PRN; +DEXAMETHASONE SOD PHOSPHATE 10 MG in NORMAL SALINE 50 ML IV PRN; +FOSAPREPITANT DIMEGLUMINE 150 MG in NORMAL SALINE 150 ML IV PRN; +FUROSEMIDE INJ/PF 20 MG/2 ML SDV IV PRN; -NORMAL SALINE 1000 ML 1,000 ML IV PRN; +NORMAL SALINE 500 ML @ KVO IV PRN; +PALONOSETRON 0.25 MG/5 ML VIAL IV PRN; -PROMETHAZINE HCL INJ 25 MG/1 ML VIAL IV PRN
[2018-07-01 08:22] VITALS: BP 134/63
== END 2018-07-01 12:40 | disposition home or self-care (01) ==
LOC: II 08:12 → 5TH 08:15 → II 12:40
PROVIDERS: ATTEND Internal Medicine
PROC: 3E04305 Introduction of Other Antineoplastic into Central Vein, Percutaneous Approach (ICD-10-PCS; principal; 2018-07-01)
PROC: 3E0433Z Introduction of Anti-inflammatory into Central Vein, Percutaneous Approach (ICD-10-PCS; 2018-07-01)
PROC: 3E043GC Introduction of Other Therapeutic Substance into Central Vein, Percutaneous Approach (ICD-10-PCS; 2018-07-01)
DX: Z51.11 Encounter for antineoplastic chemotherapy (principal); C76.0 Malignant neoplasm of head, face and neck
CPT/HCPCS: 96413; 96415; 96365; 96366; 96374; 96375; 96360; J9060; J1940; J7050; J7040; J1100; J1642; J1453; J2469; 96367

== ENCOUNTER 2018-07-06 08:10 | Outpatient (CLI) | payer OTHER ==
[2018-07-06] MEDS ORDERED: PROMETHAZINE HCL INJ 25 MG/1 ML VIAL IV PRN (08:24)
[2018-07-06] MEDS ORDERED: NORMAL SALINE 1000 ML 1,000 ML IV PRN (08:28)
[2018-07-06 09:09] VITALS: BP 132/62
== END 2018-07-06 10:43 | disposition home or self-care (01) ==
LOC: II 08:10 → 5TH 08:12 → II 10:43
PROVIDERS: ATTEND Internal Medicine
PROC: 3E0437Z Introduction of Electrolytic and Water Balance Substance into Central Vein, Percutaneous Approach (ICD-10-PCS; principal; 2018-07-06)
PROC: 3E043GC Introduction of Other Therapeutic Substance into Central Vein, Percutaneous Approach (ICD-10-PCS; 2018-07-06)
DX: E86.0 Dehydration (principal); R11.0 Nausea
CPT/HCPCS: 96375; 96360; J2550; J1642; 96361; 96374

== ENCOUNTER 2018-07-07 12:19 | Outpatient (CLI) | payer OTHER ==
[~2018-07-07 12:19] MED LIST changes: -CISPLATIN 85 MG in NORMAL SALINE 500 ML IV PRN; -DEXAMETHASONE SOD PHOSPHATE 10 MG in NORMAL SALINE 50 ML IV PRN; -FOSAPREPITANT DIMEGLUMINE 150 MG in NORMAL SALINE 150 ML IV PRN; -FUROSEMIDE INJ/PF 20 MG/2 ML SDV IV PRN; +NORMAL SALINE 1000 ML 1,000 ML IV PRN; -NORMAL SALINE 500 ML @ KVO IV PRN; -PALONOSETRON 0.25 MG/5 ML VIAL IV PRN; +PROMETHAZINE HCL INJ 25 MG/1 ML VIAL IV PRN
[2018-07-07 13:54] VITALS: BP 115/52
== END 2018-07-07 13:56 | disposition home or self-care (01) ==
LOC: II 12:19
PROVIDERS: ATTEND Internal Medicine
PROC: 3E0437Z Introduction of Electrolytic and Water Balance Substance into Central Vein, Percutaneous Approach (ICD-10-PCS; principal; 2018-07-07)
PROC: 3E043GC Introduction of Other Therapeutic Substance into Central Vein, Percutaneous Approach (ICD-10-PCS; 2018-07-07)
DX: E86.0 Dehydration (principal); R11.0 Nausea
CPT/HCPCS: 96374; 96375; 96360; J2550; J1642; 96361

== ENCOUNTER 2018-07-09 13:02 | Outpatient (CLI) | payer OTHER ==
[2018-07-09 13:35] VITALS: BP 127/63
== END 2018-07-09 14:31 | disposition home or self-care (01) ==
LOC: II 13:02
PROVIDERS: ATTEND Internal Medicine
PROC: 3E043GC Introduction of Other Therapeutic Substance into Central Vein, Percutaneous Approach (ICD-10-PCS; principal; 2018-07-09)
PROC: 3E0437Z Introduction of Electrolytic and Water Balance Substance into Central Vein, Percutaneous Approach (ICD-10-PCS; 2018-07-09)
DX: E86.0 Dehydration (principal); R11.0 Nausea
CPT/HCPCS: 96374; 96375; 96360; J2550; J1642; 96361

== ENCOUNTER 2018-07-13 12:58 | Outpatient (CLI) | payer OTHER ==
[2018-07-13 13:32] VITALS: BP 150/71
== END 2018-07-13 14:04 | disposition home or self-care (01) ==
LOC: II 12:58 → 5TH 12:59 → II 14:04
PROVIDERS: ATTEND Internal Medicine
PROC: 3E0437Z Introduction of Electrolytic and Water Balance Substance into Central Vein, Percutaneous Approach (ICD-10-PCS; principal; 2018-07-13)
PROC: 3E043GC Introduction of Other Therapeutic Substance into Central Vein, Percutaneous Approach (ICD-10-PCS; 2018-07-13)
DX: E86.0 Dehydration (principal); R11.0 Nausea
CPT/HCPCS: 96374; 96375; 96360; J2550; J1642; 96361

== ENCOUNTER 2018-07-15 08:26 | Outpatient (CLI) | payer OTHER ==
[~2018-07-15 08:26] MED LIST changes: +CARBOPLATIN IV PRN; +DEXAMETHASONE SOD PHOSPHATE 10 MG in NORMAL SALINE 50 ML IV PRN; -NORMAL SALINE 1000 ML 1,000 ML IV PRN; +NORMAL SALINE 250 ML IV PRN; +NORMAL SALINE IV PRN; +PALONOSETRON 0.25 MG/5 ML SDV IV PRN; -PROMETHAZINE HCL INJ 25 MG/1 ML VIAL IV PRN
[2018-07-15 09:34] VITALS: BP 148/87
== END 2018-07-15 11:07 | disposition home or self-care (01) ==
LOC: II 08:26 → 5TH 08:28 → II 11:07
PROVIDERS: ATTEND Internal Medicine
PROC: 3E04305 Introduction of Other Antineoplastic into Central Vein, Percutaneous Approach (ICD-10-PCS; principal; 2018-07-15)
PROC: 3E0433Z Introduction of Anti-inflammatory into Central Vein, Percutaneous Approach (ICD-10-PCS; 2018-07-15)
PROC: 3E043GC Introduction of Other Therapeutic Substance into Central Vein, Percutaneous Approach (ICD-10-PCS; 2018-07-15)
DX: Z51.11 Encounter for antineoplastic chemotherapy (principal); C76.0 Malignant neoplasm of head, face and neck
CPT/HCPCS: 96413; 96367; 96374; 96375; 96360; J9045; J7040; J1100; J1642; J2469

== ENCOUNTER 2018-07-20 13:02 | Outpatient (CLI) | payer OTHER ==
[~2018-07-20 13:02] MED LIST changes: -CARBOPLATIN IV PRN; -DEXAMETHASONE SOD PHOSPHATE 10 MG in NORMAL SALINE 50 ML IV PRN; +NORMAL SALINE 1000 ML 1,000 ML IV PRN; -NORMAL SALINE 250 ML IV PRN; -NORMAL SALINE IV PRN; -PALONOSETRON 0.25 MG/5 ML SDV IV PRN; +PROMETHAZINE HCL INJ 25 MG/1 ML VIAL IV PRN
[2018-07-20 13:31] VITALS: BP 115/62
== END 2018-07-20 14:28 | disposition home or self-care (01) ==
LOC: II 13:02 → 5TH 13:02 → II 14:28
PROVIDERS: ATTEND Internal Medicine
PROC: 3E043GC Introduction of Other Therapeutic Substance into Central Vein, Percutaneous Approach (ICD-10-PCS; principal; 2018-07-20)
PROC: 3E0437Z Introduction of Electrolytic and Water Balance Substance into Central Vein, Percutaneous Approach (ICD-10-PCS; 2018-07-20)
DX: E86.0 Dehydration (principal); R11.0 Nausea; C76.0 Malignant neoplasm of head, face and neck
CPT/HCPCS: 96374; 96375; 96360; J2550; J1642; 96361

== ENCOUNTER 2018-07-22 08:55 | Outpatient (CLI) | payer OTHER ==
[~2018-07-22 08:55] MED LIST changes: -NORMAL SALINE 1000 ML 1,000 ML IV PRN; +NORMAL SALINE 1000 ML @ AS DIRECTED IV PRN; -PROMETHAZINE HCL INJ 25 MG/1 ML VIAL IV PRN
[2018-07-22] MEDS ORDERED: DEXAMETHASONE 10 MG in NS 50 ML IV PRN (09:15)
[2018-07-22] MEDS ORDERED: NORMAL SALINE IV PRN (09:20)
[2018-07-22] MEDS ORDERED: CARBOPLATIN IV PRN (09:20)
[2018-07-22 09:26] VITALS: BP 126/73
== END 2018-07-22 13:33 | disposition home or self-care (01) ==
LOC: II 08:55 → 5TH 08:59 → II 13:33
PROVIDERS: ATTEND Internal Medicine
PROC: 3E04305 Introduction of Other Antineoplastic into Central Vein, Percutaneous Approach (ICD-10-PCS; principal; 2018-07-22)
PROC: 3E0433Z Introduction of Anti-inflammatory into Central Vein, Percutaneous Approach (ICD-10-PCS; 2018-07-22)
PROC: 3E0437Z Introduction of Electrolytic and Water Balance Substance into Central Vein, Percutaneous Approach (ICD-10-PCS; 2018-07-22)
DX: Z51.11 Encounter for antineoplastic chemotherapy (principal); C76.0 Malignant neoplasm of head, face and neck; E86.0 Dehydration
CPT/HCPCS: 96413; 96367; 96361; J9045; J7040; J1100; J1642; 96360; 96374

== ENCOUNTER → 2018-07-28 | Outpatient (CLI) | payer OTHER ==
[2018-07-28 14:28] LABS: APPEARANCE,URINE CLOUDY; BILIRUBIN,URINE SMALL (NEGATIVE); COLOR,URINE AMBER; GLUCOSE, URINE NEGATIVE (NEGATIVE); KETONES,URINE 20 mg/dL (NEGATIVE); LEUKOCYTE ESTERASE,URINE MODERATE (NEGATIVE); NITRITE,URINE NEGATIVE (NEGATIVE); PROTEIN,URINE >=500 mg/dL (NEGATIVE); URINE SPECIFIC GRAVITY 1.029
== END ==
LOC: LAB 13:59
PROVIDERS: ATTEND Internal Medicine
DX: R30.0 Dysuria (principal)
CPT/HCPCS: 81001; 87086; 87088; 87186

== ENCOUNTER 2018-07-29 08:54 | Outpatient (CLI) | payer OTHER ==
[~2018-07-29 08:54] MED LIST changes: +CARBOPLATIN IV PRN; +DEXAMETHASONE 10 MG in NS 50 ML IV PRN; -NORMAL SALINE 1000 ML @ AS DIRECTED IV PRN; +NORMAL SALINE IV PRN; +PALONOSETRON 0.25 MG/5 ML VIAL IV PRN
[2018-07-29] MEDS ORDERED: NORMAL SALINE 1000 ML 1,000 ML IV PRN (08:58)
[2018-07-29 09:19] VITALS: BP 117/59
== END 2018-07-29 14:16 | disposition home or self-care (01) ==
LOC: II 08:54 → 5TH 08:57 → II 14:16
PROVIDERS: ATTEND Internal Medicine
PROC: 3E04305 Introduction of Other Antineoplastic into Central Vein, Percutaneous Approach (ICD-10-PCS; principal; 2018-07-29)
PROC: 3E0433Z Introduction of Anti-inflammatory into Central Vein, Percutaneous Approach (ICD-10-PCS; 2018-07-29)
PROC: 3E043GC Introduction of Other Therapeutic Substance into Central Vein, Percutaneous Approach (ICD-10-PCS; 2018-07-29)
DX: Z51.11 Encounter for antineoplastic chemotherapy (principal); C76.0 Malignant neoplasm of head, face and neck; E86.0 Dehydration
CPT/HCPCS: 96413; 96367; 96375; 96361; J9045; J7040; J1100; J1642; J2469; 96360; 96374

== ENCOUNTER 2018-08-03 13:05 | Outpatient (CLI) | payer OTHER ==
[~2018-08-03 13:05] MED LIST changes: -CARBOPLATIN IV PRN; -DEXAMETHASONE 10 MG in NS 50 ML IV PRN; +NORMAL SALINE 1000 ML 1,000 ML IV PRN; -NORMAL SALINE IV PRN; -PALONOSETRON 0.25 MG/5 ML VIAL IV PRN; +PROMETHAZINE HCL INJ 25 MG/1 ML VIAL IV PRN
[2018-08-03 13:44] VITALS: BP 85/68
== END 2018-08-03 14:39 | disposition home or self-care (01) ==
LOC: II 13:05 → 5TH 13:08 → II 14:39
PROVIDERS: ATTEND Internal Medicine
PROC: 3E043GC Introduction of Other Therapeutic Substance into Central Vein, Percutaneous Approach (ICD-10-PCS; principal; 2018-08-03)
PROC: 3E0437Z Introduction of Electrolytic and Water Balance Substance into Central Vein, Percutaneous Approach (ICD-10-PCS; 2018-08-03)
DX: E86.0 Dehydration (principal); R11.0 Nausea
CPT/HCPCS: 96374; 96361; J2550; J1642; 96360

== ENCOUNTER 2018-10-18 09:10 | Emergency (ER) | payer OTHER ==
--- NOTE | 2018-10-18 10:47 | ER Document Report ---
ED ENT - General Chief Complaint: Difficulty Swallowing Stated Complaint: SWOLLEN THROAT Time Seen by Provider: 10/18/18 10:37 Primary Care Provider: SOLANGE DIAZ MD [Primary Care Provider] - Follow up as needed Mode of Arrival: Ambulatory Information source: Patient Notes: Chief complaint: Swelling of the throat History of complain:( obtained from----patient) 58 years old female who was diagnosed with throat cancer early part of this year currently status post chemo and radiation treatment. Last few days she was feeling a sensation of swelling in the throat therefore concerned and came to the ED. In fact referred by the ENT. Denies any pain denies any fever chills or productive cough. Onset: As above Duration: As a bowel Severity: Mild Quality: As above Context: As described above Exacerbating factor and relieving factors: None REVIEW OF SYSTEMS: CONSTITUTIONAL : Denies fever, chills, or sweats. Denies recent illness. EENT: As per history of complain CARDIOVASCULAR: Denies chest pain. Denies palpitations or racing or irregular heart beat. Denies ankle edema. RESPIRATORY: Denies cough, cold, or chest congestion. Denies shortness of breath, difficulty breathing, or wheezing. GASTROINTESTINAL: Denies distention. Denies nausea, vomiting, or diarrhea. Denies blood in vomitus, stools, or per rectum. Denies black, tarry stools. Denies constipation. GENITOURINARY: Denies difficulty urinating, painful urination, burning, frequency, blood in urine, or discharge. FEMALE GENITOURINARY: Denies vaginal bleeding, heavy or abnormal periods, irregular periods. Denies vaginal discharge or odor. MUSCULOSKELETAL: Denies back or neck pain or stiffness. Denies joint pain or swelling. SKIN: Denies rash, lesions or sores. HEMATOLOGIC : Denies easy bruising or bleeding. LYMPHATIC: Denies swollen, enlarged glands. NEUROLOGICAL: Denies confusion or altered mental status. Denies passing out or loss of consciousness. Denies dizziness or lightheadedness. Denies headache. Denies weakness or paralysis or loss of use of either side. Denies problems with gait or speech. Denies sensory loss, numbness, or tingling. Denies seizures. PSYCHIATRIC: Denies anxiety or stress. Denies depression, suicidal ideation, or homicidal ideation. ALL OTHER SYSTEMS REVIEWED AND NEGATIVE. PHYSICAL EXAMINATION: GENERAL: Well-appearing, well-nourished and in no acute distress. Altered voice HEAD: Atraumatic, normocephalic. EYES: Pupils equal round and reactive to light, extraocular movements intact, conjunctiva are normal. ENT: Nares patent, oropharynx clear without exudates. Moist mucous membranes. NECK: Normal range of motion, supple , mild stridor LUNGS: Breath sounds clear to auscultation bilaterally and equal. No wheezes rales or rhonchi. HEART: Regular rate and rhythm without murmurs ABDOMEN: Soft, nontender, nondistended abdomen. No guarding, no rebound. No masses appreciated. Examination of genitals-deferred Musculoskeletal: Normal range of motion, no pitting or edema. No cyanosis. NEUROLOGICAL: Cranial nerves grossly intact. Normal speech, normal gait. Normal sensory, motor exams PSYCH: Normal mood, normal affect. SKIN: Warm, Dry, normal turgor, no rashes or lesions noted. Dictation was performed using [employer] voice recognition software TRAVEL OUTSIDE OF THE [place] IN LAST 30 DAYS: No - HPI Patient complains to provider of: Throat problem - Dictated - Related Data Allergies/Adverse Reactions: No Known Allergies Allergy (Verified 10/18/18 09:10) Past Medical History - Social History Smoking Status: Former Smoker Chew tobacco use (# tins/day): No Frequency of alcohol use: Rare Drug Abuse: None Family History: Other - Throat cancer Patient has suicidal ideation: No Patient has homicidal ideation: No - Medical History Notes: Dictated - Past Medical History Cardiac Medical History: Denies: Hx Coronary Artery Disease, Hx Heart Attack, Hx Hypertension Pulmonary Medical History: Denies: Hx Asthma, Hx Bronchitis, Hx COPD, Hx Pneumonia Neurological Medical History: Denies: Hx Cerebrovascular Accident, Hx Seizures Renal/ Medical History: Denies: Hx Peritoneal Dialysis Musculoskeletal Medical History: Denies Hx Arthritis Past Surgical History: Reports: Hx Section - x2, Hx Orthopedic Surgery - l knee, Hx Vascular Surgery - Chest port - Immunizations Hx Diphtheria, Pertussis, Tetanus Vaccination: - UNKNOWN Review of Systems - Review of Systems Notes: Dictated Physical Exam - Vital signs Vitals: Temp Pulse Resp BP Pulse Ox 97.9 F 79 20 132/70 H 98 10/18/18 09:15 10/18/18 09:15 10/18/18 09:15 10/18/18 09:15 10/18/18 09:15 - Notes Notes: Dictated Course - Re-evaluation Re-evalutation: 10/18/18 15:35 This case was discussed with patient as well as the oncologist Dr. Pearl, instructed me to discharge the patient and they will follow-up patient has no stridor or acute shortness of breath. - Vital Signs Vital signs: Temp Pulse Resp BP Pulse Ox 97.9 F 79 20 132/70 H 98 10/18/18 09:15 10/18/18 09:15 10/18/18 09:15 10/18/18 09:15 10/18/18 09:15 - Laboratory Result Diagrams: 10/18/18 12:50 10/18/18 12:50 Laboratory results interpreted by me: 10/18/18 12:50 RBC 3.09 L Hgb 10.3 L Hct 30.3 L MCV 98 H MCH 33.5 H - Diagnostic Test Radiology reviewed: Reports reviewed - CT of the soft tissue neck indicates re currence of the tumor and lymph nodes. Discharge - Discharge Clinical Impression: Cervical cancer Qualifiers: Malignant neoplasm of cervix location: unspecified location Qualified Code(s): C53.9 - Malignant neoplasm of cervix uteri, unspecified Condition: Fair Disposition: HOME, SELF-CARE Instructions: Lymphadenopathy ([facility]) Additional Instructions: Dr. Pearl will call you for follow-up evaluation. Referrals: SOLANGE DIAZ MD [Primary Care Provider] - Follow up as needed
[2018-10-18 13:01] LABS: ABSOLUTE LYMPHOCYTES (AUTO) 0.9 10^3/uL (0.5-4.7); ABSOLUTE MONOCYTES (AUTO) 0.3 10^3/uL (0.1-1.4); MEAN CORPUSCULAR HEMOGLOBIN 33.5 pg (27.0-33.4); TOTAL CELLS COUNTED % (AUTO) 100 %
[2018-10-18 13:04] LABS: ABSOLUTE NEUT (AUTO) 2.9 10^3/uL (1.7-8.2); EOSINOPHILS % (AUTO) 0.6 % (0-6); HEMATOCRIT 30.3 % (36.0-47.0); HEMOGLOBIN 10.3 g/dL (12.0-15.5); LYMPHOCYTES % (AUTO) 20.6 % (13-45); MEAN CORPUSCULAR HGB CONC 34.1 g/dL (32.0-36.0); MEAN CORPUSCULAR VOLUME 98 fl (80-97); MONOCYTES % (AUTO) 8.2 % (3-13); PLATELET COUNT 226 10^3/uL (150-450); RED BLOOD COUNT 3.09 10^6/uL (3.72-5.28); RED CELL DISTRIBUTION WIDTH 12.2 % (11.5-14.0); SEGMENTED NEUTROPHILS % (AUTO) 69.6 % (42-78); WHITE BLOOD COUNT 4.2 10^3/uL (4.0-10.5)
[2018-10-18 13:27] LABS: ALBUMIN 3.9 g/dL (3.5-5.0); ALKALINE PHOSPHATASE 62 U/L (38-126); ANION GAP 8 (5-19); ASPARTATE AMINO TRANSFERASE 21 U/L (14-36); BILIRUBIN,DIRECT 0.1 mg/dL (0.0-0.4); BILIRUBIN,TOTAL 0.2 mg/dL (0.2-1.3); BLOOD UREA NITROGEN 19 mg/dL (7-20); CALCIUM 9.8 mg/dL (8.4-10.2); CARBON DIOXIDE 29 mmol/L (22-30); CHLORIDE 102 mmol/L (98-107); GLUCOSE 84 mg/dL (75-110); POTASSIUM 3.9 mmol/L (3.6-5.0); TOTAL PROTEIN 6.4 g/dL (6.3-8.2)
--- NOTE | 2018-10-18 15:12 | RADIOLOGY REPORT (SQ) ---
EXAM DESCRIPTION: CT SOFT TISSUE NECK WITH COMPLETED DATE/TIME: 10/18/2018 2:45 pm REASON FOR STUDY: Difficulty in swallowing/status post chemotherapy COMPARISON: Soft tissue neck ultrasound 05/05/2018 PET-CT 04/11/2018 CT soft tissue neck 03/25/2018 TECHNIQUE: Post IV contrasted scanning from skull base through lung apices with review of bone, soft tissue and lung windows. Reconstructed coronal and sagittal MPR images reviewed. All images stored on PACS. All CT scanners at this facility use dose modulation, iterative reconstruction, and/or weight based d osing when appropriate to reduce radiation dose to as low as reasonably achievable (ALARA). [facility]: Dose Right [facility]: CareDose [facility]: Dose Right [facility]: Teradose 4D [facility]: iNEWiT CONTRAST TYPE AND DOSE: contrast/concentration: Isovue 350.00 mg/ml; Total Contrast Delivered: 75.0 ml; Total Saline Delivered: 55.0 ml RENAL FUNCTION: Creatinine 0.6 RADIATION DOSE: CT Rad equipment meets quality standard of care and radiation dose reduction techniq ues were employed. CTDIvol: 14.3 mGy. DLP: 457 mGy-cm. . LIMITATIONS: None. FINDINGS: A cystic necrotic left level 2 lymph node is present, 1.3 x 1.1 cm in size on axial image 62/111. A 1.5 x 1 cm ill-defined enhancing nodule is present between the left carotid sheath and deep aspect of the left sternocleidomastoid muscle, best shown on axial image 64/111. This is in the area of sean or enlarged lymph node seen on PET-CT 04/11/2018, which measured about 3.3 x 2 cm at that time. SKULL BASE: Inferior brain parenchyma unremarkable MAJOR SALIVARY GLANDS: No solid or cystic masses. No inflammatory changes. LYMPHADENOPATHY: As above MUCOSAL MASSES OR ASYMMETRY: No mucosal masses or asymmetry. LARYNX/CORDS: No abnormal findings. VASCULAR STRUCTURES: The major vessels are patent. LUNG APICES: Clear. BONES: Intact. THYROID: Normal size. No masses. PARANASAL SINUSES: Clear. OTHER: A right-sided jugular central line is present with the tip in the superior vena cava IMPRESSION: Findings worrisome for tumor recurrence in the left neck as above TECHNICAL DOCUMENTATION: JOB ID: [id number] Quality ID # [id number]: Final reports with documentation of one or more dose reduction techniques (e.g., Au tomated exposure control, adjustment of the mA and/or kV according to patient size, use of iterative reconstruction technique) 2010 [employer]- All Rights Reserved Reading location - IP/workstation name: [email or web address]
[2018-10-18 16:47] VITALS: BP 130/72
== END 2018-10-18 17:00 | disposition home or self-care (01) ==
LOC: ER 09:10
DX: C53.9 Malignant neoplasm of cervix uteri, unspecified (principal); R06.00 Dyspnea, unspecified
CPT/HCPCS: 99284; 36415; 85025; 80053; 70491; J1642

== ENCOUNTER → 2018-10-24 | Outpatient (CLI) | payer OTHER ==
--- NOTE | 2018-10-25 09:49 | RADIOLOGY REPORT (SQ) ---
EXAM DESCRIPTION: PET CT SKULL/THIGH COMPLETED DATE/TIME: 10/25/2018 5:26 am REASON FOR STUDY: C76.0 MALIGNANT NEOPLASM OF HEAD, FACE AND NECK C76.0 MALIGNANT NEOPLASM OF HEAD, FACE AND NECK COMPARISON: 04/11/2018. CT neck dated 10/18/2018. RADIONUCLIDE AND DOSE: 10 mCi F18 FDG The route of agent administration: Intravenous FASTING BLOOD SUGAR: 76 mg/dl CONTRAST TYPE AND DOSE: No CT contrast given. TECHNIQUE: Blood glucose level was verified. Above dose of FDG was injected intravenously. 2-D seg mented attenuation correction images were obtained from the base of the skull to the midthighs. Nonc ontrast CT images were obtained for attenuation correction and fusion with emission images. CT image s were performed without oral or intravenous contrast and are not sensitive for parenchymal lesions. A series of overlapping emission PET images were obtained. Images reviewed and manipulated at [facility] work station by the radiologist. Images stored on PACS. LIMITATIONS: Motion related misregistration artifact between the PET and CT images of the pulmonary nodules. FINDINGS: HEAD AND NECK: Surgical changes on the left side of the neck at the previously seen hyperm etabolic lymph node which has decreased in size. Current mean SUV 4.03. CHEST: New 1.6 cm right lower lobe nodule. Mean SUV 5.51. New 7.0 mm nodule in the left lung base. Mean SUV 2.6. ABDOMEN AND PELVIS: No areas of abnormal metabolic activity in the abdomen or pelvis. Expected physi ologic activity is present in the genitourinary system and bowel. PROXIMAL LOWER EXTREMITIES: No areas of abnormal metabolic activity in the soft tissues of the lower extremities. BONES: No abnormal metabolic activity in the visualized skeleton. ADDITIONAL CT FINDINGS: No additional significant findings on the noncontrast CT images. OTHER: Background blood pool activity mean SUV 2.25. Background liver activity mean SUV 2.65. No ot her significant findings. IMPRESSION: 1. SURGICAL CHANGES ON THE LEFT SIDE OF THE NECK WITH DECREASE IN THE PREVIOUSLY SEEN HYPERMETABOLIC LYMPH NODE. CURRENT MEAN SUV IS 4.03 WITH PRIOR VALUE 19.6. 2. NEW BILATERAL LUNG NODULES DESCRIBED CONSISTENT WITH METASTASES. 3. NO OTHER SIGNIFICANT FINDINGS. NO EVIDENCE OF METASTATIC INVOLVEMENT IN THE ABDOMEN OR PELVIS. TECHNICAL DOCUMENTATION: JOB ID: [id number] All Rights Reserved Reading location - IP/workstation name: [email or web address]
== END ==
LOC: RAD 16:49
PROVIDERS: ATTEND Physician Assistant Medical
DX: C76.0 Malignant neoplasm of head, face and neck (principal)
CPT/HCPCS: 78815; A9552

== ENCOUNTER → 2019-03-01 | Outpatient (CLI) | payer OTHER ==
--- NOTE | 2019-03-02 09:58 | RADIOLOGY REPORT (SQ) ---
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 TECHNIQUE: Blood glucose level was verified. Above dose of FDG was injected intravenously. 2-D seg mented attenuation correction images were obtained from the base of the skull to the midthighs. Nonc ontrast CT images were obtained for attenuation correction and fusion with emission images. CT image s were performed without oral or intravenous contrast and are not sensitive for parenchymal lesions. A series of overlapping emission PET images were obtained. Images reviewed and manipulated at [facility] work station by the radiologist. Images stored on PACS. LIMITATIONS: None. FINDINGS: HEAD AND NECK: There is residual uptake in the left aspect of the neck and at the level of the glottis. Highest SUV is 3.74 residual disease cannot be excluded. CHEST: There is abnormal uptake in a left lower lobe pulmonary nodule. The nodule measures approxima tely 1.2 cm in diameter. Highest SUV is 3.11. Metastatic disease is suspected. Postsurgical change s in the right hilum moderate right effusion but no abnormal activity in the right hemithorax. ABDOMEN AND PELVIS: No areas of abnormal metabolic activity in the abdomen or pelvis. Expected physi ologic activity is present in the genitourinary system and bowel. PROXIMAL LOWER EXTREMITIES: No areas of abnormal metabolic activity in the soft tissues of the lower extremities. BONES: No abnormal metabolic activity in the visualized skeleton. ADDITIONAL CT FINDINGS: No additional significant findings on the noncontrast CT images. OTHER: No other significant findings. IMPRESSION: 1. The left lower lobe pulmonary nodule has increased in size. SUV is greater than 3 c onsistent with neoplasm. 2. Residual activity in the neck as described. Residual disease is suspected. 3. Moderate right-sided pleural effusion. No abnormal metabolic activity. TECHNICAL DOCUMENTATION: JOB ID: [id number] [employer]- All Rights Reserved Reading location - IP/workstation name: [email or web address]
== END ==
LOC: RAD 10:53
PROVIDERS: ATTEND Internal Medicine
DX: C76.0 Malignant neoplasm of head, face and neck (principal); J90 Pleural effusion, not elsewhere classified; R91.1 Solitary pulmonary nodule
CPT/HCPCS: 78815; A9552

== ENCOUNTER 2019-03-10 08:13 | Outpatient (CLI) | payer OTHER ==
[~2019-03-10 08:13] MED LIST changes: +CARBOPLATIN IV PRN; +CETUXIMAB IV PRN; +CONTAINER EMPTY IV PRN; +DEXAMETH 10 MG/ONDANSETRON 16 MG in NS 50 ML IV PRN; +DIPHENHYDRAMINE 50 MG in NS 50 ML IV PRN; +FAMOTIDINE 20 MG in NS 50 ML IV PRN; -NORMAL SALINE 1000 ML 1,000 ML IV PRN; +NORMAL SALINE 250 ML @ KVO IV PRN; +NORMAL SALINE IV PRN; +PACLITAXEL SEMI SYNTHETIC IV PRN; -PROMETHAZINE HCL INJ 25 MG/1 ML VIAL IV PRN
[2019-03-10 08:33] VITALS: BP 132/73
== END 2019-03-10 15:00 | disposition home or self-care (01) ==
LOC: II 08:13 → 5TH 08:16 → II 15:00
PROVIDERS: ATTEND Internal Medicine
DX: Z51.11 Encounter for antineoplastic chemotherapy (principal); C76.0 Malignant neoplasm of head, face and neck
CPT/HCPCS: 96413; 96367; 96417; J1200; J9045; J3490; J2405; J7050; J7040; J9267; S0028; J1100; J9055; J1642

== ENCOUNTER 2019-03-17 09:20 | Outpatient (CLI) | payer OTHER ==
[~2019-03-17 09:20] MED LIST changes: -DEXAMETH 10 MG/ONDANSETRON 16 MG in NS 50 ML IV PRN; -DIPHENHYDRAMINE 50 MG in NS 50 ML IV PRN; +DIPHENHYDRAMINE HCL 50 MG in NORMAL SALINE 50 ML IV PRN; -FAMOTIDINE 20 MG in NS 50 ML IV PRN; +FAMOTIDINE/PF 20 MG in NORMAL SALINE 50 ML IV PRN; -NORMAL SALINE 250 ML @ KVO IV PRN; +NORMAL SALINE 250 ML IV PRN; +ONDANSETRON HCL/PF 16 MG, DEXAMETHASONE SOD PHOSPHATE 10 MG in NORMAL SALINE 50 ML IV PRN
[2019-03-17 10:12] VITALS: BP 130/70
== END 2019-03-17 14:58 | disposition home or self-care (01) ==
LOC: II 09:20 → 5TH 09:22 → II 14:58
PROVIDERS: ATTEND Internal Medicine
DX: Z51.11 Encounter for antineoplastic chemotherapy (principal); C76.0 Malignant neoplasm of head, face and neck
CPT/HCPCS: 96413; 96367; 96417; J1200; J9045; J3490; J2405; J7050; J7040; J9267; S0028; J1100; J9055 ×2; J1642

== ENCOUNTER 2019-03-31 08:09 | Outpatient (CLI) | payer OTHER ==
[~2019-03-31 08:09] MED LIST changes: +DEXAMETH 10 MG/ONDANSETRON 16 MG in NS 50 ML IV PRN; +DIPHENHYDRAMINE 50 MG in NS 50 ML IV PRN; -DIPHENHYDRAMINE HCL 50 MG in NORMAL SALINE 50 ML IV PRN; +FAMOTIDINE 20 MG in NS 50 ML IV PRN; -FAMOTIDINE/PF 20 MG in NORMAL SALINE 50 ML IV PRN; +NORMAL SALINE 250 ML @ KVO IV PRN; -NORMAL SALINE 250 ML IV PRN; -ONDANSETRON HCL/PF 16 MG, DEXAMETHASONE SOD PHOSPHATE 10 MG in NORMAL SALINE 50 ML IV PRN
[2019-03-31 08:29] VITALS: BP 130/74
== END 2019-03-31 13:42 | disposition home or self-care (01) ==
LOC: II 08:09 → 5TH 08:48 → II 13:42
PROVIDERS: ATTEND Internal Medicine
DX: Z51.11 Encounter for antineoplastic chemotherapy (principal); C76.0 Malignant neoplasm of head, face and neck
CPT/HCPCS: 96413; 96367; 96417; J1200; J9045; J3490; J2405; J7050; J7040; J9267; S0028; J1100; J9055 ×2; J1642

== ENCOUNTER 2019-04-07 08:18 | Outpatient (CLI) | payer OTHER ==
[~2019-04-07 08:18] MED LIST changes: -DEXAMETH 10 MG/ONDANSETRON 16 MG in NS 50 ML IV PRN; -DIPHENHYDRAMINE 50 MG in NS 50 ML IV PRN; +DIPHENHYDRAMINE HCL 50 MG in NORMAL SALINE 50 ML IV PRN; -FAMOTIDINE 20 MG in NS 50 ML IV PRN; +FAMOTIDINE/PF 20 MG in NORMAL SALINE 50 ML IV PRN; -NORMAL SALINE 250 ML @ KVO IV PRN; +NORMAL SALINE 250 ML IV PRN; +ONDANSETRON HCL/PF 16 MG, DEXAMETHASONE SOD PHOSPHATE 10 MG in NORMAL SALINE 50 ML IV PRN
[2019-04-07 08:29] VITALS: BP 122/76
== END 2019-04-07 14:00 | disposition home or self-care (01) ==
LOC: II 08:18 → 5TH 08:20 → II 14:00
PROVIDERS: ATTEND Internal Medicine
DX: Z51.11 Encounter for antineoplastic chemotherapy (principal); C76.0 Malignant neoplasm of head, face and neck
CPT/HCPCS: 96413; 96367; 96417; J1200; J9045; J3490; J2405; J7050; J7040; J9267; S0028; J1100; J9055 ×2; J1642

== ENCOUNTER 2019-04-28 08:18 | Outpatient (CLI) | payer OTHER ==
[2019-04-28 08:32] VITALS: BP 115/56
== END 2019-04-28 13:41 | disposition home or self-care (01) ==
LOC: II 08:18 → 5TH 09:08 → II 13:41
PROVIDERS: ATTEND Internal Medicine
DX: Z51.11 Encounter for antineoplastic chemotherapy (principal); C76.0 Malignant neoplasm of head, face and neck
CPT/HCPCS: 96413; 96367; 96417; J1200; J9045; J3490; J2405; J7050; J9267; S0028; J1100; J9055 ×2; J1642

== ENCOUNTER 2019-05-05 08:15 | Outpatient (CLI) | payer OTHER ==
[2019-05-05 09:15] VITALS: BP 128/68
== END 2019-05-05 11:00 | disposition home or self-care (01) ==
LOC: II 08:15 → 5TH 08:17 → II 11:00
PROVIDERS: ATTEND Internal Medicine
DX: Z51.11 Encounter for antineoplastic chemotherapy (principal); C76.0 Malignant neoplasm of head, face and neck
CPT/HCPCS: 96413; 96365; J1200; J3490; J9055 ×2; J1642; 96367; J1100; J2405; S0028

== ENCOUNTER 2019-05-12 08:12 | Outpatient (CLI) | payer OTHER ==
[~2019-05-12 08:12] MED LIST changes: -CETUXIMAB IV PRN; -CONTAINER EMPTY IV PRN; +DEXAMETH 10 MG/ONDANSETRON 16 MG in NS 50 ML IV PRN; +DIPHENHYDRAMINE 50 MG in NS 50 ML IV PRN; -DIPHENHYDRAMINE HCL 50 MG in NORMAL SALINE 50 ML IV PRN; +FAMOTIDINE 20 MG in NS 50 ML IV PRN; -FAMOTIDINE/PF 20 MG in NORMAL SALINE 50 ML IV PRN; +NORMAL SALINE 250 ML @ KVO IV PRN; -NORMAL SALINE 250 ML IV PRN; -ONDANSETRON HCL/PF 16 MG, DEXAMETHASONE SOD PHOSPHATE 10 MG in NORMAL SALINE 50 ML IV PRN
[2019-05-12 08:29] VITALS: BP 130/66
== END 2019-05-12 12:46 | disposition home or self-care (01) ==
LOC: 5TH 08:12 → II 08:12
PROVIDERS: ATTEND Internal Medicine
DX: Z51.11 Encounter for antineoplastic chemotherapy (principal); C76.0 Malignant neoplasm of head, face and neck
CPT/HCPCS: 96413; 96367; 96417; J1200; J9045; J2405; J7050; J9267; S0028; J1100; J1642

== ENCOUNTER → 2019-05-16 | Outpatient (CLI) | payer OTHER ==
--- NOTE | 2019-05-16 13:32 | RADIOLOGY REPORT (SQ) ---
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 Images reviewed with lung, soft tissue and bone windows. Reconstructed coronal and sagittal MPR and MIP images reviewed. All images stored on PACS. All CT scanners at this facility use dose modulation, iterative reconstruction, and/or weight based d osing when appropriate to reduce radiation dose to as low as reasonably achievable (ALARA). [facility]: Dose Right [facility]: CareDose [facility]: Dose Right [facility]: Teradose 4D [facility]: [employer] CONTRAST TYPE AND DOSE: contrast/concentration: Isovue 350.00 mg/ml; Total Contrast Delivered: 80.0 ml; Total Saline Delivered: 55.0 ml RENAL FUNCTION: BUN 10, creatinine 0.39 RADIATION DOSE: . LIMITATIONS: None. FINDINGS: LUNGS AND PLEURA: Subpleural nodule in the left base best demonstrated on series 7, image 82 is measured 9.5 mm in size. Previously this measured 7 mm in size. The larger nodule in the righ t lung base previously noted is no longer identified. No additional nodules are present on the curre nt study. New scarring in the right lung apex. Small right pleural effusion. Surgical clips in the right hilum. HILAR AND MEDIASTINAL STRUCTURES: No identified masses or abnormal nodes. HEART AND VASCULAR STRUCTURES: No aneurysm or dissection. No central pulmonary emboli. No pericardi al effusion. HARDWARE: Unaanq-U-Cugz is in place. UPPER ABDOMEN: No significant findings. Limited exam. THYROID AND OTHER SOFT TISSUES: No masses. No adenopathy. BONES: No significant finding. OTHER: No other significant finding. IMPRESSION: 1. Left lower lobe pulmonary nodule has increased in size since prior exam it now measur es 9.5 mm. 2. Postsurgical changes on the right with small right effusion. Scarring in the right apex. Previo usly described pulmonary nodule is no longer identified in the right lower lobe. TECHNICAL DOCUMENTATION: JOB ID: [id number] Quality ID # [id number]: Final reports with documentation of one or more dose reduction techniques (e.g., Au tomated exposure control, adjustment of the mA and/or kV according to patient size, use of iterative reconstruction technique) 2010 [employer]- All Rights Reserved Reading location - IP/workstation name: [email or web address]
--- NOTE | 2019-05-16 13:39 | RADIOLOGY REPORT (SQ) ---
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 Reconstructed coronal and sagittal MPR images reviewed. All images stored on PACS. All CT scanners at this facility use dose modulation, iterative reconstruction, and/or weight based d osing when appropriate to reduce radiation dose to as low as reasonably achievable (ALARA). [facility]: Dose Right [facility]: CareDose [facility]: Dose Right [facility]: Teradose 4D [facility]: [employer] CONTRAST TYPE AND DOSE: 80 mL Omnipaque 350 RENAL FUNCTION: BUN 10, creatinine 0.39 RADIATION DOSE: . LIMITATIONS: None. FINDINGS: SKULL BASE: Intact. MAJOR SALIVARY GLANDS: No solid or cystic masses. No inflammatory changes. LYMPHADENOPATHY: Persistent necrotic appearing node anterior to the left sternocleidomastoid muscle. Surgical clips are noted in this area. The node measures 8.6 mm in greatest diameter. No new adeno [place]annah. MUCOSAL MASSES OR ASYMMETRY: No mucosal masses or asymmetry. LARYNX/CORDS: No abnormal findings. VASCULAR STRUCTURES: The major vessels are patent. LUNG APICES: Clear. BONES: Intact. THYROID: Normal size. No masses. PARANASAL SINUSES: Clear. OTHER: No other significant finding. IMPRESSION: Stable prominent necrotic appearing node in the left aspect the neck adjacent to surgica l clips. No other significant findings. TECHNICAL DOCUMENTATION: JOB ID: [id number] Quality ID # [id number]: Final reports with documentation of one or more dose reduction techniques (e.g., Au tomated exposure control, adjustment of the mA and/or kV according to patient size, use of iterative reconstruction technique) 2010 [employer]- All Rights Reserved Reading location - IP/workstation name: [email or web address]
== END ==
LOC: RAD 12:25
PROVIDERS: ATTEND Internal Medicine
DX: C76.0 Malignant neoplasm of head, face and neck (principal); R91.1 Solitary pulmonary nodule
CPT/HCPCS: 70491; 71260

== ENCOUNTER 2019-06-02 08:10 | Outpatient (CLI) | payer OTHER ==
[~2019-06-02 08:10] MED LIST changes: +CETUXIMAB IV PRN; +CONTAINER EMPTY IV PRN
[2019-06-02 08:38] VITALS: BP 146/44
== END 2019-06-02 13:34 | disposition home or self-care (01) ==
LOC: II 08:10 → 5TH 08:16 → II 13:34
PROVIDERS: ATTEND Internal Medicine
DX: Z51.11 Encounter for antineoplastic chemotherapy (principal); C76.0 Malignant neoplasm of head, face and neck
CPT/HCPCS: 96413; 96367; 96417; J1200; J9045; J3490; J2405; J7050; J9267; S0028; J1100; J9055 ×2; J1642

== ENCOUNTER 2019-06-09 08:07 | Outpatient (CLI) | payer MEDICAID, OTHER ==
[~2019-06-09 08:07] MED LIST changes: -DEXAMETH 10 MG/ONDANSETRON 16 MG in NS 50 ML IV PRN; -DIPHENHYDRAMINE 50 MG in NS 50 ML IV PRN; +DIPHENHYDRAMINE HCL 50 MG in NORMAL SALINE 50 ML IV PRN; -FAMOTIDINE 20 MG in NS 50 ML IV PRN; +FAMOTIDINE/PF 20 MG in NORMAL SALINE 50 ML IV PRN; -NORMAL SALINE 250 ML @ KVO IV PRN; +NORMAL SALINE 250 ML IV PRN; +ONDANSETRON HCL/PF 16 MG, DEXAMETHASONE SOD PHOSPHATE 10 MG in NORMAL SALINE 50 ML IV PRN
[2019-06-09 08:45] VITALS: BP 130/73
== END 2019-06-09 12:45 | disposition home or self-care (01) ==
LOC: II 08:07 → 5TH 08:09 → II 12:45
PROVIDERS: ATTEND Internal Medicine
DX: Z51.11 Encounter for antineoplastic chemotherapy (principal); C76.0 Malignant neoplasm of head, face and neck
CPT/HCPCS: 96413; 96367; 96417; J1200; J9045; J3490; J2405; J7050; J9267; S0028; J1100; J9055 ×2; J1642

== ENCOUNTER 2019-07-07 09:10 | Outpatient (CLI) | payer MEDICAID, OTHER ==
[~2019-07-07 09:10] MED LIST changes: +DEXAMETH 10 MG/ONDANSETRON 16 MG in NS 50 ML IV PRN; +DIPHENHYDRAMINE 50 MG in NS 50 ML IV PRN; +DIPHENHYDRAMINE 50 MG/ML VIAL IV PRN; -DIPHENHYDRAMINE HCL 50 MG in NORMAL SALINE 50 ML IV PRN; +FAMOTIDINE 20 MG in NS 50 ML IV PRN; -FAMOTIDINE/PF 20 MG in NORMAL SALINE 50 ML IV PRN; +FERUMOXYTOL (NON-ESRD) 510 MG/NS 100 ML IV PRN; +NORMAL SALINE 250 ML @ KVO IV PRN; -NORMAL SALINE 250 ML IV PRN; -ONDANSETRON HCL/PF 16 MG, DEXAMETHASONE SOD PHOSPHATE 10 MG in NORMAL SALINE 50 ML IV PRN
[2019-07-07 09:47] VITALS: BP 106/49
== END 2019-07-07 13:57 | disposition home or self-care (01) ==
LOC: II 09:10 → 5TH 09:12 → II 13:57
PROVIDERS: ATTEND Internal Medicine Hematology & Oncology
DX: Z51.11 Encounter for antineoplastic chemotherapy (principal); C76.0 Malignant neoplasm of head, face and neck
CPT/HCPCS: 96413; 96366; 96367; 96417; Q0138; J1200; J3490; J9045; J2405; J7050 ×2; J9267; S0028; J1100; J9055 ×2; J1642

== ENCOUNTER 2019-07-14 08:21 | Outpatient (CLI) | payer OTHER ==
[~2019-07-14 08:21] MED LIST changes: -DIPHENHYDRAMINE 50 MG in NS 50 ML IV PRN; +DIPHENHYDRAMINE HCL 50 MG in NORMAL SALINE 50 ML IV PRN
[2019-07-14 09:11] VITALS: BP 119/60
[2019-07-14] MEDS ORDERED: NORMAL SALINE 250 ML @ KVO IV PRN (14:48)
== END 2019-07-14 15:00 | disposition home or self-care (01) ==
LOC: II 08:21 → 5TH 08:23 → II 15:00
PROVIDERS: ATTEND Internal Medicine Hematology & Oncology
DX: Z51.11 Encounter for antineoplastic chemotherapy (principal); C76.0 Malignant neoplasm of head, face and neck
CPT/HCPCS: 96413; 96367; 96417; Q0138; J1200; J9045; J3490; J2405; J7050 ×2; J9267; S0028; J1100; J9055 ×2; J1642; 96415

== ENCOUNTER 2019-07-28 08:15 | Outpatient (CLI) | payer MEDICAID, OTHER ==
[~2019-07-28 08:15] MED LIST changes: +DIPHENHYDRAMINE 50 MG in NS 50 ML IV PRN; -DIPHENHYDRAMINE 50 MG/ML VIAL IV PRN; -DIPHENHYDRAMINE HCL 50 MG in NORMAL SALINE 50 ML IV PRN; -FERUMOXYTOL (NON-ESRD) 510 MG/NS 100 ML IV PRN
[2019-07-28 08:35] VITALS: BP 115/51
== END 2019-07-28 13:22 | disposition home or self-care (01) ==
LOC: II 08:15 → 5TH 08:19 → II 13:22
PROVIDERS: ATTEND Internal Medicine Hematology & Oncology
DX: Z51.11 Encounter for antineoplastic chemotherapy (principal); C76.0 Malignant neoplasm of head, face and neck
CPT/HCPCS: 96413; 96367; 96417; J1200; J9045; J3490; J2405; J7050; J9267; S0028; J1100; J9055 ×2; J1642

== ENCOUNTER 2019-07-31 16:07 | Emergency (ER) | payer MEDICAID ==
--- NOTE | 2019-07-31 16:20 | ER Document Report ---
ED General - General Chief Complaint: Headache Stated Complaint: HEADACHE Time Seen by Provider: 07/31/19 16:19 Primary Care Provider: SHWETA NUÑEZ PA-C [ALLIED HEALTH PROFESSIONAL] - Follow up as needed Mode of Arrival: Ambulatory Information source: Patient Notes: 59-year-old female arrives with her son Renan with a history of having severe diffuse headache for 1 day associated with nonproductive cough. Actually patient reports she does have some minor mucus production. Also her appetite is decreased. 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 Patient is followed by the cancer group here at [facility]. She has been on carboplatin and immunotherapy and recently has been taking iron therapy. Her son reports when she gets IV iron she acts very foggy brain and unusual acting. Her last immunotherapy chemotherapy was last . Patient stop smoking just prior to diagnosis of her cancer around 4 years ago. She used to smoke 3 packs of cigarettes per day. Patient does complain of nausea but reports this is typical for her after she received chemotherapy. TRAVEL OUTSIDE OF THE [place] IN LAST 30 DAYS: No - HPI Onset: This morning Onset/Duration: Sudden Quality of pain: No pain - No pain Severity: Mild Associated symptoms: Headache Exacerbated by: Denies Relieved by: Denies Similar symptoms previously: Yes Recently seen / treated by doctor: No - Related Data Allergies/Adverse Reactions: No Known Allergies Allergy (Verified 10/18/18 09:10) Past Medical History - General Information source: Patient - Social History Smoking Status: Former Smoker Cigarette use (# per day): No Chew tobacco use (# tins/day): No Smoking Education Provided: No Frequency of alcohol use: None Drug Abuse: None Lives with: Family - Renan Family History: Reviewed & Not Pertinent, Other Patient has suicidal ideation: No Patient has homicidal ideation: No - Past Medical History Cardiac Medical History: Denies: Hx Coronary Artery Disease, Hx Heart Attack, Hx Hypertension Pulmonary Medical History: Denies: Hx Asthma, Hx Bronchitis, Hx COPD, Hx Pneumonia Neurological Medical History: Denies: Hx Cerebrovascular Accident, Hx Seizures Renal/ Medical History: Denies: Hx Peritoneal Dialysis Musculoskeletal Medical History: Denies Hx Arthritis Past Surgical History: Reports: Hx Section - x2, Hx Orthopedic Surgery - l knee, Hx Vascular Surgery - Chest port - Immunizations Hx Diphtheria, Pertussis, Tetanus Vaccination: - UNKNOWN Review of Systems - Review of Systems Constitutional: See HPI, Weakness, Weight loss EENT: See HPI, Sinus pressure Cardiovascular: No symptoms reported Respiratory: See HPI, Cough - nonproductive Gastrointestinal: No symptoms reported Genitourinary: No symptoms reported Female Genitourinary: No symptoms reported Musculoskeletal: No symptoms reported Skin: No symptoms reported Hematologic/Lymphatic: No symptoms reported Neurological/Psychological: No symptoms reported, Weakness, Headaches Physical Exam - Vital signs Vitals: Temp Pulse Resp BP Pulse Ox 98.3 F 92 18 104/63 97 07/31/19 16:21 07/31/19 16:21 07/31/19 16:21 07/31/19 16:21 07/31/19 16:21 Interpretation: Normal - General General appearance: Alert - HEENT Head: Normocephalic, Atraumatic Eyes: Normal Pupils: PERRL - Respiratory Respiratory status: No respiratory distress Chest status: Nontender Breath sounds: Normal Chest palpation: Normal - Cardiovascular Rhythm: Regular Heart sounds: Normal auscultation Murmur: No - Abdominal Inspection: Normal Distension: No distension Bowel sounds: Normal Tenderness: Nontender Organomegaly: No organomegaly - Rectal Hemorrhoids: Other - deferred - Genitourinary Speculum exam: Other - deferred - Back Back: Normal - Extremities General upper extremity: Normal inspection, Nontender, Normal color, Normal ROM, Normal temperature General lower extremity: Normal inspection, Nontender, Normal color, Normal ROM, Normal temperature, Normal weight bearing. No: Jean's sign - Neurological Neuro grossly intact: Yes Cognition: Normal Orientation: AAOx4 Haworth Coma Scale Eye Opening: Spontaneous Haworth Coma Scale Verbal: Oriented Haworth Coma Scale Motor: Obeys Commands Kori Coma Scale Total: 15 Speech: Normal Motor strength normal: LUE, RUE, LLE, RLE Sensory: Normal - Psychological Associated symptoms: Normal affect - Skin Skin Temperature: Warm Skin Moisture: Dry Course - Vital Signs Vital signs: Temp Pulse Resp BP Pulse Ox 98.7 F 92 18 104/63 97 07/31/19 16:40 07/31/19 16:21 07/31/19 16:21 07/31/19 16:21 07/31/19 16:21 - Laboratory Result Diagrams: 07/31/19 17:49 07/31/19 17:49 Laboratory results interpreted by me: 07/31/19 07/31/19 17:49 17:49 WBC 2.4 L RBC 3.28 L Hgb 11.4 L Hct 33.4 L MCV 102 H MCH 34.8 H RDW 15.8 H Absolute Lymphs (auto) 0.4 L Sodium 133.6 L Creatinine 0.45 L - Diagnostic Test Radiology reviewed: Reports reviewed - Lingular infiltrate versus atelectasis Radiology results interpreted by me: 07/31/19 19:19 CT of head reveals 4.7 cm mass in the right frontal lobe with 10 mm shift past midline to the left. Critical Care Note - Critical Care Note Total time excluding time spent on procedures (mins): 90 Comments: I spoke with Dr. Vale oncologist at 1830 and she advises Decadron IV and then p.o. twice a day and she will see the patient in office tomorrow to arrange for neurologist or neurosurgeon. Patient was much improved by 2100 and therefore patient was discharged home with Zofran and [place] as needed for headache pain and Decadron to be used tomorrow morning. Discharge - Discharge Clinical Impression: Chemotherapy-induced nausea, Brain lesion Headache Qualifiers: Headache type: other headache syndrome Qualified Code(s): G44.89 - Other headache syndrome Condition: Good Disposition: HOME, SELF-CARE Admitting Provider: Kavin Additional Instructions: Follow-up tomorrow with Dr. Vale or with oncology service return to ER if symptoms persist or worsen and take medicines as directed encourage fluids Referrals: SHWETA NUÑEZ PAAndreeC [ALLIED HEALTH PROFESSIONAL] - Follow up as needed
[2019-07-31] MEDS ORDERED: HYDROMORPHONE HCL INJ/PF 2 MG/ML AMPULE IV ONE ×2 (17:11→19:20)
[2019-07-31] MEDS ORDERED: PROMETHAZINE HCL INJ 25 MG/1 ML VIAL IV ONE (17:12)
--- NOTE | 2019-07-31 17:19 | RADIOLOGY REPORT (SQ) ---
EXAM DESCRIPTION: CHEST SINGLE VIEW IMAGES COMPLETED DATE/TIME: 07/31/2019 5:02 pm REASON FOR STUDY: cough COMPARISON: 04/20/2018 EXAM PARAMETERS: NUMBER OF VIEWS: One view. TECHNIQUE: Single frontal radiographic view of the chest acquired. RADIATION DOSE: NA LIMITATIONS: None. FINDINGS: LUNGS AND PLEURA: A small rounded opacification projects over left lung base. No pleural effusion or pneumothorax. MEDIASTINUM AND HILAR STRUCTURES: No masses. Contour normal. HEART AND VASCULAR STRUCTURES: Heart normal in size. Normal vasculature. BONES: No acute findings. HARDWARE: Right anterior chest wall Port-A-Cath terminates in the region of the superior vena cava. OTHER: No other significant finding. IMPRESSION: Subtle findings could represent a small focus of round atelectasis or developing airspac e process within the lingula. TECHNICAL DOCUMENTATION: JOB ID: [id number] 2010 [employer]- All Rights Reserved Reading location - IP/workstation name: [email or web address]
[2019-07-31 18:05] LABS: ABSOLUTE LYMPHOCYTES (AUTO) 0.4 10^3/uL (0.5-4.7); ABSOLUTE MONOCYTES (AUTO) 0.2 10^3/uL (0.1-1.4); ABSOLUTE NEUT (AUTO) 1.8 10^3/uL (1.7-8.2); BASOPHILS % (AUTO) 0.6 % (0-2); EOSINOPHILS % (AUTO) 0.2 % (0-6); HEMATOCRIT 33.4 % (36.0-47.0); HEMOGLOBIN 11.4 g/dL (12.0-15.5); LYMPHOCYTES % (AUTO) 16.1 % (13-45); MEAN CORPUSCULAR HEMOGLOBIN 34.8 pg (27.0-33.4); MEAN CORPUSCULAR HGB CONC 34.2 g/dL (32.0-36.0); MEAN CORPUSCULAR VOLUME 102 fl (80-97); MONOCYTES % (AUTO) 7.4 % (3-13); PLATELET COUNT 184 10^3/uL (150-450); RED BLOOD COUNT 3.28 10^6/uL (3.72-5.28); RED CELL DISTRIBUTION WIDTH 15.8 % (11.5-14.0); SEGMENTED NEUTROPHILS % (AUTO) 75.7 % (42-78); TOTAL CELLS COUNTED % (AUTO) 100 %; WHITE BLOOD COUNT 2.4 10^3/uL (4.0-10.5)
[2019-07-31 18:20] LABS: ALBUMIN 4.1 g/dL (3.5-5.0); ALKALINE PHOSPHATASE 89 U/L (38-126); ANION GAP 8 (5-19); ASPARTATE AMINO TRANSFERASE 23 U/L (14-36); BILIRUBIN,TOTAL 0.6 mg/dL (0.2-1.3); BLOOD UREA NITROGEN 15 mg/dL (7-20); CALCIUM 9.8 mg/dL (8.4-10.2); CARBON DIOXIDE 27 mmol/L (22-30); CHLORIDE 99 mmol/L (98-107); GLUCOSE 101 mg/dL (75-110); POTASSIUM 3.8 mmol/L (3.6-5.0); TOTAL PROTEIN 7.3 g/dL (6.3-8.2)
[2019-07-31] MEDS ORDERED: CEFTRIAXONE INJ 1000 MG VIAL IV ONE (18:23)
[2019-07-31] MEDS ORDERED: AZITHROMYCIN INJ 500 MG VIAL IV ONE (18:24)
[2019-07-31] MEDS ORDERED: DEXAMETHASONE SOD PHOS INJ 10 MG/1 ML VIAL IV ONE (18:34)
--- NOTE | 2019-07-31 18:38 | RADIOLOGY REPORT (SQ) ---
EXAM DESCRIPTION: CT HEAD WITHOUT IMAGES COMPLETED DATE/TIME: 07/31/2019 6:12 pm REASON FOR STUDY: cough COMPARISON: None. TECHNIQUE: Axial images acquired through the brain without intravenous contrast. Images reviewed wit h bone, brain and subdural windows. Images stored on PACS. All CT scanners at this facility use dose modulation, iterative reconstruction, and/or weight based d osing when appropriate to reduce radiation dose to as low as reasonably achievable (ALARA). [facility]: Dose Right [facility]: CareDose [facility]: Dose Right [facility]: Teradose 4D [facility]: [employer] RADIATION DOSE: CT Rad equipment meets quality standard of care and radiation dose reduction techniq ues were employed. CTDIvol: 53.2 mGy. DLP: 1017 mGy-cm.. LIMITATIONS: None. FINDINGS: VENTRICLES: Compressed right lateral ventricle. CEREBRUM: No hemorrhage. 4.7 cm mass in the right frontal lobe with 10 mm subfalcine midline shift to the patient's left side. CEREBELLUM: No hemorrhage. EXTRA-AXIAL SPACES: No fluid collections. ORBITS AND GLOBE: No intra- or extraconal masses. Normal contour of globe without masses. CALVARIUM: No fracture. PARANASAL SINUSES: No fluid or mucosal thickening. SOFT TISSUES: No mass or hematoma. OTHER: No other significant finding. IMPRESSION: 4.7 cm mass in the right frontal lobe with 10 mm subfalcine midline shift to the patien t's left side. EVIDENCE OF ACUTE STROKE: NO. COMMENT: Results were communicated to Dr. Alegria in the emergency room at 1830 hours. Results we re confirmed and read back. TECHNICAL DOCUMENTATION: JOB ID: [id number] Quality ID # [id number]: Final reports with documentation of one or more dose reduction techniques (e.g., Au tomated exposure control, adjustment of the mA and/or kV according to patient size, use of iterative reconstruction technique) 2010 [employer]- All Rights Reserved Reading location - IP/workstation name: [email or web address]
[2019-07-31] MEDS ORDERED: HYDROCODONE/ACETAMINOPHEN 5-325 MG (6 TAB/ER DISP) PO PRN (21:50)
[2019-07-31] MEDS ORDERED: DEXAMETHASONE 4 MG TABLET PO ONE (21:50)
[2019-07-31] MEDS ORDERED: ONDANSETRON ODT 4 MG TAB (6 TAB/ER DISP) PO PRN (21:51)
[2019-07-31 22:08] VITALS: BP 110/59
== END 2019-07-31 22:43 | disposition home or self-care (01) ==
LOC: ER 16:07
DX: G44.89 Other headache syndrome (principal); G93.9 Disorder of brain, unspecified; R11.0 Nausea; R05 Cough; R53.1 Weakness; R63.4 Abnormal weight loss
CPT/HCPCS: 96376; 99284; 96375; 96365; 96368; 36415; 87040; 85025; 80053; 84484; 71045; 70450; J3490; J1170; J2550; J0696; J0456; J1100; J8540

== ENCOUNTER → 2019-08-08 | Outpatient (CLI) | payer MEDICAID, OTHER ==
--- NOTE | 2019-08-08 15:09 | RADIOLOGY REPORT (SQ) ---
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 Images reviewed with lung, soft tissue and bone windows. Reconstructed coronal and sagittal MPR and MIP images reviewed. All images stored on PACS. All CT scanners at this facility use dose modulation, iterative reconstruction, and/or weight based d osing when appropriate to reduce radiation dose to as low as reasonably achievable (ALARA). [facility]: Dose Right [facility]: CareDose [facility]: Dose Right [facility]: Teradose 4D [facility]: [employer]SP CONTRAST TYPE AND DOSE: contrast/concentration: Isovue 350.00 mmol/ml; Total Contrast Delivered: 80. 0 ml; Total Saline Delivered: 55.0 ml RENAL FUNCTION: Not available at time of dictation. RADIATION DOSE: . LIMITATIONS: None. FINDINGS: LUNGS AND PLEURA: Left lower lobe pulmonary nodule has increased in size. Now measures 1. 5 cm. This measured 9.5 mm on prior study. No new nodules. No consolidation. HILAR AND MEDIASTINAL STRUCTURES: No identified masses or abnormal nodes. HEART AND VASCULAR STRUCTURES: No aneurysm or dissection. No central pulmonary emboli. No pericardi al effusion. HARDWARE: Pvnlyz-O-Bhdv remains in place. UPPER ABDOMEN: No significant findings. Limited exam. THYROID AND OTHER SOFT TISSUES: No masses. No adenopathy. BONES: No significant finding. OTHER: No other significant finding. IMPRESSION: Left lower lobe pulmonary nodule now measures 1.5 cm in size. This measured 9.5 mm on p rior study. . TECHNICAL DOCUMENTATION: JOB ID: [id number] Quality ID # [id number]: Final reports with documentation of one or more dose reduction techniques (e.g., Au tomated exposure control, adjustment of the mA and/or kV according to patient size, use of iterative reconstruction technique) 2010 [employer]- All Rights Reserved Reading location - IP/workstation name: [email or web address]
--- NOTE | 2019-08-08 15:13 | RADIOLOGY REPORT (SQ) ---
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 Reconstructed coronal and sagittal MPR images reviewed. All images stored on PACS. All CT scanners at this facility use dose modulation, iterative reconstruction, and/or weight based d osing when appropriate to reduce radiation dose to as low as reasonably achievable (ALARA). [facility]: Dose Right [facility]: CareDose [facility]: Dose Right [facility]: Teradose 4D [facility]: [email or web address] CONTRAST TYPE AND DOSE: 80 mL Omnipaque 350 RENAL FUNCTION: Not available at time of dictation. RADIATION DOSE: . LIMITATIONS: None. FINDINGS: SKULL BASE: Intact. MAJOR SALIVARY GLANDS: No solid or cystic masses. No inflammatory changes. LYMPHADENOPATHY: Stable lymph node adjacent to a surgical clip the left aspect of the neck. This is best demonstrated on series 2, image 58. This measures 8.7 mm in diameter. MUCOSAL MASSES OR ASYMMETRY: No mucosal masses or asymmetry. LARYNX/CORDS: No abnormal findings. VASCULAR STRUCTURES: The major vessels are patent. LUNG APICES: Scarring in the right apex. BONES: Intact. THYROID: Normal size. No masses. PARANASAL SINUSES: Clear. OTHER: No other significant finding. IMPRESSION: No significant interval change in the CT of the neck. Small necrotic appearing node on the left is stable in size. TECHNICAL DOCUMENTATION: JOB ID: [id number] Quality ID # [id number]: Final reports with documentation of one or more dose reduction techniques (e.g., Au tomated exposure control, adjustment of the mA and/or kV according to patient size, use of iterative reconstruction technique) 2010 [employer]- All Rights Reserved Reading location - IP/workstation name: [email or web address]
--- NOTE | 2019-08-08 16:04 | RADIOLOGY REPORT (SQ) ---
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 Images stored on PACS. CONTRAST TYPE AND DOSE: 14 mL Prohance. RENAL FUNCTION: Not indicated. ACR Type II contrast agent associated with few, if any, unconfounded cases of NSF LIMITATIONS: None. FINDINGS: ANATOMY: No anomalies. Normal vascular flow voids. Pituitary fossa normal. CSF SPACES: Normal in size and contour. No hemorrhage. CEREBRUM: It is there is a 3.4 x 3.1 cm heterogeneous enhancing mass in the right frontal lobe consis tent with recent CT. There is surrounding vasogenic edema. There is persistent midline shift to the left this measures approximately 12.2 mm on today's study. No additional lesions are identified. O ccasional periventricular and subcortical white matter lesion is noted most likely related to small v essel disease. POSTERIOR FOSSA: No signal alteration. No hemorrhage. No edema, masses, or mass effect. Internal joey tory canals, cerebellopontine angles, mastoids normal. No enhancing lesions. No abnormal enhancement post contrast. DIFFUSION IMAGING: Negative for acute or subacute infarction. ORBITS: No masses. Globes normal. PARANASAL SINUSES: No fluid levels. Mucosa normal. OTHER: No other significant finding. IMPRESSION: 3.4 x 3.1 cm heterogeneously enhancing mass in the right frontal lobe consistent with ne oplasm. There is surrounding vasogenic edema. There is 12.2 mm of midline shift toward the left. EVIDENCE OF ACUTE STROKE: NO. TECHNICAL DOCUMENTATION: JOB ID: [id number] 2010 [employer]- All Rights Reserved Reading location - IP/workstation name: [email or web address]
== END ==
LOC: RAD 14:13
PROVIDERS: ATTEND Internal Medicine
DX: C76.0 Malignant neoplasm of head, face and neck (principal); R91.1 Solitary pulmonary nodule
CPT/HCPCS: 70553; 70491; 71260; A9576 ×2

== ENCOUNTER 2019-09-11 18:23 | Emergency (ER) | payer MEDICAID, OTHER ==
[2019-09-11 18:44] VITALS: BP 134/70
== END 2019-09-11 19:14 | disposition left against medical advice (07) ==
LOC: ER 18:23
DX: Z53.21 Procedure and treatment not carried out due to patient leaving prior to being seen by health care provider (principal)

== ENCOUNTER 2019-09-14 01:34 | Inpatient (IN) | payer MEDICAID, OTHER ==
[2019-09-14 04:32] LABS: APPEARANCE,URINE CLEAR; BILIRUBIN,URINE NEGATIVE (NEGATIVE); COLOR,URINE STRAW; GLUCOSE, URINE NEGATIVE (NEGATIVE); KETONES,URINE NEGATIVE (NEGATIVE); PROTEIN,URINE NEGATIVE (NEGATIVE); URINE SPECIFIC GRAVITY 1.003; UROBILINOGEN,URINE NEGATIVE mg/dL (<2.0)
[2019-09-14 04:41] LABS: HEMATOCRIT 29.6 % (36.0-47.0); HEMOGLOBIN 10.3 g/dL (12.0-15.5); MEAN CORPUSCULAR HEMOGLOBIN 36.2 pg (27.0-33.4); MEAN CORPUSCULAR HGB CONC 34.8 g/dL (32.0-36.0); MEAN CORPUSCULAR VOLUME 104 fl (80-97); PLATELET COUNT 201 10^3/uL (150-450); RED BLOOD COUNT 2.85 10^6/uL (3.72-5.28); WHITE BLOOD COUNT 4.4 10^3/uL (4.0-10.5)
[2019-09-14 04:49] LABS: INTERNATIONAL RATION (INR) 0.92; PROTHROMBIN TIME 12.6 SEC (11.4-15.4)
[2019-09-14 04:50] LABS: PARTIAL THROMBOPLASTIN TIME 31.3 SEC (23.5-35.8)
[2019-09-14 04:58] LABS: ALBUMIN 3.7 g/dL (3.5-5.0); ALKALINE PHOSPHATASE 127 U/L (38-126); ANION GAP 6 (5-19); ASPARTATE AMINO TRANSFERASE 23 U/L (14-36); BILIRUBIN,TOTAL 0.5 mg/dL (0.2-1.3); BLOOD UREA NITROGEN 14 mg/dL (7-20); CARBON DIOXIDE 32 mmol/L (22-30); CHLORIDE 93 mmol/L (98-107); GLUCOSE 111 mg/dL (75-110); POTASSIUM 3.5 mmol/L (3.6-5.0); TOTAL PROTEIN 6.5 g/dL (6.3-8.2)
[2019-09-14 05:09] LABS: NT PRO BNP 338 pg/mL (<125)
[2019-09-14 05:10] LABS: TROPONIN I < 0.012 ng/mL
[2019-09-14 05:15] LABS: ABSOLUTE LYMPHOCYTES# (MANUAL) 0.4 10^3/uL (0.5-4.7); ABSOLUTE MONOCYTES # (MANUAL) 0.4 10^3/uL (0.1-1.4); BAND NEUTROPHILS % (MANUAL) 1 % (3-5); BASOPHILS % (MANUAL) 0 % (0-2); EOSINOPHILS % (MANUAL) 0 % (0-6); LYMPHOCYTES % (MANUAL) 10 % (13-45); MONOCYTES % (MANUAL) 8 % (3-13); SEGMENTED NEUTROPHILS % (MAN) 81 % (42-78); TOTAL CELLS COUNTED 100
[2019-09-14] MEDS ORDERED: VANCOMYCIN HCL INJ 1000 MG VIAL IV ONE (05:16)
[2019-09-14 05:17] LABS: ANISOCYTOSIS SLIGHT; OVALOCYTES SLIGHT; PLATELET COMMENT ADEQUATE; POIKILOCYTOSIS SLIGHT; POLYCHROMASIA SLIGHT; SCHISTOCYTES SLIGHT; TEAR DROP CELLS SLIGHT; TOXIC GRANULATION 1+
--- NOTE | 2019-09-14 06:14 | ER Document Report ---
ED General - General Chief Complaint: Skin Problem Stated Complaint: POSS SKIN INECTION Primary Care Provider: SOLANGE DIAZ MD [Primary Care Provider] - Follow up as needed TRAVEL OUTSIDE OF THE [place] 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 Patient states that every time she goes off of the chemo treatment she has body swelling worse in her legs bilaterally and that this time she developed redness and pain in her bilateral lower legs which started several days ago and has gradually worsened. Patient saw her primary doctor and was started on Clinda approximately 2 days ago without any improvement in symptoms. Patient also complains of chronic dysuria and says that she has been treated for UTIs many times but symptoms never improve. Patient denies any vomiting, fever, abdominal pain, flank pain, CHF history, renal or liver insufficiency, DVT/PE history, chest pain, shortness of breath. Patient on dexamethasone chronically. - Related Data Allergies/Adverse Reactions: No Known Allergies Allergy (Verified 10/18/18 09:10) Past Medical History - General Information source: Patient, [facility] Records - Social History Smoking Status: Former Smoker Chew tobacco use (# tins/day): No Frequency of alcohol use: None Drug Abuse: None Family History: Reviewed & Not Pertinent, Other Patient has homicidal ideation: No - Past Medical History Cardiac Medical History: Denies: Hx Coronary Artery Disease, Hx Heart Attack, Hx Hypertension Pulmonary Medical History: Denies: Hx Asthma, Hx Bronchitis, Hx COPD, Hx Pneumonia Neurological Medical History: Denies: Hx Cerebrovascular Accident, Hx Seizures Renal/ Medical History: Denies: Hx Peritoneal Dialysis Musculoskeletal Medical History: Denies Hx Arthritis Past Surgical History: Reports: Hx Section - x2, Hx Orthopedic Surgery - l knee, Hx Vascular Surgery - Chest port - Immunizations Hx Diphtheria, Pertussis, Tetanus Vaccination: - UNKNOWN Review of Systems - Review of Systems Notes: REVIEW OF SYSTEMS: CONSTITUTIONAL : Denies fever, chills, or sweats. EENT: Denies recent cold/sinus symptoms, denies throat pain CARDIOVASCULAR: Denies chest pain, +NAYELY RESPIRATORY: Denies cough, denies shortness of breath. GASTROINTESTINAL: Denies abdominal pain, nausea/vomiting. GENITOURINARY: Denies difficulty urinating, +painful urination. FEMALE GENITOURINARY: Denies abnormal vaginal bleeding, vaginal discharge. MUSCULOSKELETAL: Denies neck pain, +back pain. SKIN: + rash or skin lesions. HEMATOLOGIC : Denies easy bruising or bleeding. LYMPHATIC: Denies swollen, enlarged glands. NEUROLOGICAL: Denies headache, denies change in gait. PSYCHIATRIC: Denies anxiety or stress or depression. Physical Exam - Vital signs Vitals: Temp Pulse Resp BP Pulse Ox 97.7 F 79 15 129/73 H 100 09/14/19 01:40 09/14/19 01:40 09/14/19 01:40 09/14/19 01:40 09/14/19 01:40 - Notes Notes: PHYSICAL EXAMINATION: GENERAL: Chronically ill-appearing middle-aged woman sitting up in stretcher in no acute distress HEAD: Atraumatic, normocephalic. EYES: Pupils equal round and appropriate constriction, sclera anicteric, conjunctiva are normal. ENT: nares patent, moist mucous membranes. NECK: Normal range of motion, supple without lymphadenopathy LUNGS: Breath sounds clear to auscultation bilaterally and equal. No wheezes rales or rhonchi. HEART: Regular rate and rhythm without murmurs ABDOMEN: Soft, nontender, no guarding, no masses, no CVAT PELVIC: No vaginal discharge or bleeding, no adnexal tenderness, no CMT, normal loss EXTREMITIES: Normal range of motion, no pitting or edema. No cyanosis. NEUROLOGICAL: Awake, alert, conversing appropriately, moves all extremities spon taneously. PSYCH: Normal mood, normal affect. SKIN: Warm, Dry, normal turgor, erythema to bilateral distal lower leg with tenderness and diffuse pitting edema symmetrically. Area of erythema on left lower leg has weeping white discharge. Course - Re-evaluation Re-evalutation: 09/14/19 06:43 Exam concerning for bilateral cellulitis likely precipitated by lymphedema. No systemic symptoms, patient does not appear acutely ill. Perform pelvic exam as patient has severe dysuria but had normal urinalysis, but pelvic exam was n ormal, specimen sent to lab. Patient says that she has chronically had this bilateral lower extremity edema and has seen multiple doctors outpatient for it and denied any PE symptoms, but upon transferring to bed patient appeared abnormally dyspneic and I ordered CTA for rule out PE. I have discussed this patient with Dr. Kenney who is accepted patient and will turn over her care to the day hospitalist. Patient respiratory and hemodynamic status remains normal pending CTA. Insufficient suspicion for PE to treat empirically pending CTA. - Vital Signs Vital signs: Temp Pulse Resp BP Pulse Ox 97.7 F 79 15 129/73 H 100 09/14/19 01:40 09/14/19 01:40 09/14/19 01:40 09/14/19 01:40 09/14/19 01:40 - Laboratory Result Diagrams: 09/14/19 04:20 09/14/19 04:20 Laboratory results interpreted by me: 09/14/19 09/14/19 09/14/19 04:20 04:20 04:20 RBC 2.85 L Hgb 10.3 L Hct 29.6 L MCV 104 H MCH 36.2 H RDW 15.0 H Seg Neuts % (Manual) 81 H Band Neutrophils % 1 L Lymphocytes % (Manual) 10 L Abs Lymphs (Manual) 0.4 L Sodium 130.5 L Potassium 3.5 L Chloride 93 L Carbon Dioxide 32 H Creatinine 0.51 L Glucose 111 H Alkaline Phosphatase 127 H NT-Pro-B Natriuret Pep 338 H - EKG Interpretation by Me Additional EKG results interpreted by me: 09/14/19 04:30 Heart rate 78, sinus rhythm, no significant ST elevations or depressions, no significant T wave abnormalities, QTc 433 Discharge - Discharge Clinical Impression: Lower extremity edema Cellulitis Qualifiers: Site of cellulitis: extremity Site of cellulitis of extremity: lower extremity Laterality: unspecified laterality Qualified Code(s): L03.119 - Cellulitis of unspecified part of limb Disposition: ADMITTED INPATIENT Admitting Provider: Pablito (Hospitalist) Unit Admitted: Medical Floor Referrals: SOLANGE DIAZ MD [Primary Care Provider] - Follow up as needed
[2019-09-14 06:44] LABS: RBCS (WET MOUNT) NO RBCS SEEN; T.VAGINALIS (WET MOUNT) NO TRICHOMONAS SEEN; WBCS (WET MOUNT) NO WBCS SEEN; YEAST (WET MOUNT) NO YEAST SEEN
[2019-09-14 08:05] LABS: CHLAM PCR NOT DETECTED (NOT DETECT)
--- NOTE | 2019-09-14 08:51 | RADIOLOGY REPORT (SQ) ---
EXAM DESCRIPTION: CTA CHEST IMAGES COMPLETED DATE/TIME: 09/14/2019 7:56 am REASON FOR STUDY: lower ext edema dodd metastatic ca COMPARISON: 08/08/2019 TECHNIQUE: CT scan of the chest performed using helical scanning technique with dynamic intravenous contrast injection. Images reviewed with lung, soft tissue and bone windows. Reconstructed coronal and sagittal MPR images reviewed. Additional 3 dimensional post-processing performed to develop Maximal Intensity Projection images (RI P). All images stored on PACS. All CT scanners at this facility use dose modulation, iterative reconstruction, and/or weight based d osing when appropriate to reduce radiation dose to as low as reasonably achievable (ALARA). [facility]: Dose Right [facility]: CareDose [facility]: Dose Right [facility]: Teradose 4D [facility]: [email or web address] CONTRAST TYPE AND DOSE: contrast/concentration: Isovue 350.00 mmol/ml; Total Contrast Delivered: 64. 0 ml; Total Saline Delivered: 70.0 ml Contrast bolus adequate for pulmonary arteries and aorta. RENAL FUNCTION: BUN 14; creatinine 0.51 RADIATION DOSE: CT Rad equipment meets quality standard of care and radiation dose reduction techniq ues were employed. CTDIvol: 9.9 - 19.6 mGy. DLP: 736 mGy-cm. . LIMITATIONS: None. FINDINGS: LUNGS AND PLEURA: Short interval stability of a 1.7 x 1.4 x 1.4 cm left lower lobe mass. No new focal consolidation, pleural effusion, or pneumothorax. AORTA AND GREAT VESSELS: No aneurysm. No dissection. HEART: Trace pericardial fluid. Moderate to marked coronary artery calcifications. PULMONARY ARTERIES: No emboli visualized in the main pulmonary arteries or the segmental branches. HILAR AND MEDIASTINAL STRUCTURES: No identified masses or abnormal nodes. HARDWARE: None in the chest. UPPER ABDOMEN: No significant findings. Limited exam. THYROID AND OTHER SOFT TISSUES: No masses. No adenopathy. BONES: No acute or significant finding. 3D MIPS: Confirm above findings. OTHER: No other significant finding. IMPRESSION: NORMAL CTA OF THE CHEST. NO PULMONARY EMBOLI. SHORT INTERVAL STABILITY OF A LEFT LOWER LOBE MASS. COMMENT: Quality ID # [id number]: Final reports with documentation of one or more dose reduction techniques (e.g., Automated exposure control, adjustment of the mA and/or kV according to patient size, use of iterative reconstruction technique) TECHNICAL DOCUMENTATION: JOB ID: [id number] [employer]- All Rights Reserved Reading location - IP/workstation name: [email or web address]
--- NOTE | 2019-09-14 10:37 | EKG REPORT ---
SEVERITY:- NORMAL ECG - SINUS RHYTHM : Confirmed by: Joni Samaniego MD 14-Sep-2019 10:36:34
[2019-09-14] MEDS ORDERED: VANCOMYCIN HCL 0 MG in DEXTROSE 5%-WATER 250 ML IV NR (10:45)
--- NOTE | 2019-09-14 10:53 | PDOC H&P ---
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 Patient reports that she initially had a "lump" on her neck which was biopsied and revealed squamous cell carcinoma. Subsequently she underwent a work-up and was found to have metastatic disease in both her lungs and brain. Given these f indings the patient reports she has had biopsies of the lung as well as a craniotomy. She has received both chemo and XRT. Her last chemo treatment was last month and her last radiation treatment was approximately 1 year ago. The patient reports that they are planning to start radiation again next month. Patient also reports that she has had LE edema for which she has received diuretic therapy (furosemide) and other than this the patient denies significant past medical history. The patient states that she had compression stockings prescribed for her LE edema and noticed that she started having significant pain in her left ankle and when she removed the compression stockings noticed that there was redness and that the skin was broken on the left ankle area. As a result, she presented to the ED for further evaluation and treatment. The ED physician ordered a CTA of the chest and abdomen which revealed no PE. It also revealed interval stability of the left lower lobe lung mass. Patient was given an initial dose of IV vancomycin in the ED and the hospital service was consulted with the patient for further evaluation and treatment. Past Medical History Cardiac Medical History: Denies: Coronary Artery Disease, Myocardial Infarction, Hyperlipidema, Hypertension Pulmonary Medical History: Denies: Asthma, Bronchitis, Chronic Obstructive Pulmonary Disease (COPD), Pneumonia, Sleep Apnea EENT Medical History: Reports: None Neurological Medical History: Denies: Seizures Endocrine Medical History: Reports: None Renal/ Medical History: Reports: None Malignancy Medical History: Reports: Other - Squamous cell carcinoma neck with metastatic disease to the brain and lung GI Medical History: Reports: None Musculoskeltal Medical History: Denies: Arthritis Skin Medical History: Denies: Eczema, Psoriasis Psychiatric Medical History: Reports: None Traumatic Medical History: Reports: None Hematology: Reports: Anemia Infectious Medical History: Denies: None Past Surgical History Past Surgical History: Reports: Section - x2, Orthopedic Surgery - l knee, Vascular Surgery - Chest port, Other - Lung biopsy and craniotomy Social History Information Source: Patient Lives with: Family Smoking Status: Former Smoker Electronic Cigarette use?: No Frequency of Alcohol Use: None Hx Recreational Drug Use: No Drugs: None Hx Prescription Drug Abuse: No Family History Family History: Reviewed & Not Pertinent, Other Parental Family History Reviewed: Yes - mother breast cancer/sister anal cancer Children Family History Reviewed: Yes Sibling(s) Family History Reviewed.: Yes Medication/Allergy Home Medications: Clindamycin HCl 300 mg PO TID 09/14/19 Dexamethasone [Decadron 4 Mg Tablet] 4 mg PO DAILY 09/14/19 Diphenhydramine HCl [Allergy Relief] 25 mg PO DAILY 09/14/19 Furosemide [Lasix 20 mg Tablet] 20 mg PO QAM 09/14/19 Levetiracetam [Keppra 500 mg Tablet] 500 mg PO Q12 09/14/19 Multivitamin [Tab-A-Bonnie (Multiple Vitamin) Tablet] 1 tab PO DAILY 09/14/19 Omeprazole Magnesium [Prilosec Otc] 20 mg PO BID 09/14/19 Silver Sulfadiazine [Ssd] 1 applic TP BID 09/14/19 Allergies/Adverse Reactions: No Known Allergies Allergy (Verified 10/18/18 09:10) Review of Systems Constitutional: ABSENT: anorexia, chills, fatigue, fever(s), night sweats, weakness Eyes: ABSENT: visual disturbances Ears: ABSENT: hearing changes Nose, Mouth, and Throat: ABSENT: mouth pain, sore throat, vertigo Cardiovascular: PRESENT: edema. ABSENT: chest pain, dyspnea on exertion, orthropnea, palpitations Respiratory: ABSENT: cough, dyspnea, hemoptysis, sputum Gastrointestinal: ABSENT: abdominal pain, bloating, coffee ground emesis, constipation, diarrhea, dysphagia, heartburn, hematemesis, hematochezia, melena, nausea, vomiting Genitourinary: PRESENT: other - Vaginal burning without discharge. ABSENT: difficulty urinating, dysuria, hematuria Musculoskeletal: ABSENT: back pain Integumentary: PRESENT: erythema, wounds - Left ankle excoriated and red. Right ankle with minimal cellulitis. ABSENT: diaphoresis Neurological: ABSENT: abnormal gait, abnormal movements, abnormal speech, confusion, focal weakness, frequent falls, lack of coordination, memory loss, syncope Psychiatric: ABSENT: anxiety, depression, homidical ideation, suicidal ideation Endocrine: ABSENT: cold intolerance, heat intolerance, polydipsia, polyphagia, polyuria Hematologic/Lymphatic: ABSENT: easy bleeding Physical Exam Vital Signs: Temp Pulse Resp BP Pulse Ox 97.5 F 78 20 120/67 100 09/14/19 08:02 09/14/19 08:02 09/14/19 08:02 09/14/19 08:02 09/14/19 08:02 Intake & Output 09/13/19 09/14/19 09/15/19 06:59 06:59 06:59 Weight 87.997 kg General appearance: PRESENT: no acute distress, cooperative, obese, well- developed, well-nourished Head exam: PRESENT: atraumatic, normocephalic, other - Well-healed craniotomy scar Eye exam: PRESENT: conjunctiva pink, EOMI, PERRLA. ABSENT: scleral icterus Ear exam: PRESENT: normal external ear exam Mouth exam: PRESENT: moist, tongue midline Neck exam: ABSENT: JVD, tracheal deviation Respiratory exam: PRESENT: clear to auscultation dario, symmetrical, unlabored. ABSENT: accessory muscle use Cardiovascular exam: PRESENT: RRR, +S1, +S2 Pulses: PRESENT: normal carotid pulses, normal radial pulses Vascular exam: PRESENT: normal capillary refill GI/Abdominal exam: PRESENT: normal bowel sounds, soft. ABSENT: distended, tenderness Rectal exam: PRESENT: deferred Extremities exam: PRESENT: pedal edema. ABSENT: calf tenderness Neurological exam: PRESENT: alert, awake, oriented to person, oriented to place, oriented to time, oriented to situation, CN II-XII grossly intact Psychiatric exam: PRESENT: appropriate affect, normal mood. ABSENT: agitated, anxious Skin exam: PRESENT: dry, normal color, warm, other - Left ankle with circumferential excoriation and erythema. Right ankle with 1 pustule noted anteriorly as well as minimal cellulitis pattern Results Laboratory Results: 09/14/19 04:20 09/14/19 04:20 09/14/19 09/14/19 09/14/19 04:16 04:20 04:20 WBC 4.4 RBC 2.85 L Hgb 10.3 L Hct 29.6 L MCV 104 H MCH 36.2 H MCHC 34.8 RDW 15.0 H Plt Count 201 Seg Neutrophils % Not Reportable Sodium 130.5 L Potassium 3.5 L Chloride 93 L Carbon Dioxide 32 H Anion Gap 6 BUN 14 Creatinine 0.51 L Est GFR ( Amer) > 60 Glucose 111 H Calcium 9.0 Total Bilirubin 0.5 AST 23 Alkaline Phosphatase 127 H Total Protein 6.5 Albumin 3.7 Urine Color STRAW Urine Appearance CLEAR Urine pH 7.0 Ur Specific [place] 1.003 Urine Protein NEGATIVE Urine Glucose (UA) NEGATIVE Urine Ketones NEGATIVE Urine Blood NEGATIVE Urine RBC (Auto) 1 09/14/19 04:20 Troponin I < 0.012 NT-Pro-B Natriuret Pep 338 H Impressions: Chest/Abdomen CTA 09/14/19 06:43 IMPRESSION: NORMAL CTA OF THE CHEST. NO PULMONARY EMBOLI. SHORT INTERVAL STABILITY OF A LEFT LOWER LOBE MASS. Assessment and Plan - Diagnosis (1) Cellulitis Qualifiers: Site of cellulitis: extremity Site of cellulitis of extremity: lower extremity Laterality: unspecified laterality Qualified Code(s): L03.119 - Cellulitis of unspecified part of limb Is this a current diagnosis for this admission?: Yes Plan: Patient received initial dose of vancomycin in the ED Continue vancomycin per pharmacy protocol Continue silver sulfadiazine topically to LLE twice daily Check blood cultures (2) Lower extremity edema Is this a current diagnosis for this admission?: Yes Plan: Patient does not have significant LE edema currently Continue furosemide 20 mg p.o. daily, if LE edema becomes worse changed to IV (3) Squamous cell carcinoma Is this a current diagnosis for this admission?: Yes Plan: Treatment per outpatient oncology (4) Hyponatremia Is this a current diagnosis for this admission?: Yes Plan: Start NS at 75 cc/h Monitor (5) Hypokalemia Is this a current diagnosis for this admission?: Yes Plan: Replete with KCl 20 mEq p.o. x1 Monitor (6) Anemia Is this a current diagnosis for this admission?: Yes Plan: Likely related to chemotherapy Consider transfusion for Hgb < 7.0 Monitor (7) Vaginal candidiasis Is this a current diagnosis for this admission?: Yes Plan: Start miconazole vaginal suppository 200 mg daily - Time Time Spent with patient: 35 or more minutes Medications reviewed and adjusted accordingly: Yes Anticipated Discharge Disposition: Home, Self Care Anticipated Discharge Timeframe: within 72 hours
[2019-09-14] MEDS ORDERED: POTASSIUM CHLORIDE 10 MEQ TABLET.ER PO ONE (12:00)
[2019-09-14] MEDS: NORMAL SALINE 1000 ML 1,000 ML IV PRN (12:39)
[2019-09-14] MEDS ORDERED: LEVETIRACETAM 500 MG TABLET PO ONE (13:00)
[2019-09-14] MEDS ORDERED: MULTIVITAMIN TABLET PO ONE (13:00)
[2019-09-14] MEDS ORDERED: FUROSEMIDE 20 MG TABLET PO ONE (13:00)
[2019-09-14] MEDS ORDERED: SILVER SULFADIAZINE 1% CREAM 50 GM TP ONE (13:00)
[2019-09-14] MEDS ORDERED: ENOXAPARIN SODIUM INJ 40 MG/0.4 ML DISP.SYRIN SUBCUT ONE (13:00)
[2019-09-14] MEDS ORDERED: DEXAMETHASONE 4 MG TABLET PO ONE (14:00)
[2019-09-14] MEDS: MICONAZOLE NITRATE 200 MG/SUPP (3 SUPP/BOX) VG SCH (14:42)
[2019-09-14] MEDS: SILVER SULFADIAZINE 1% CREAM 50 GM TP SCH (17:36)
[2019-09-14] MEDS: VANCOMYCIN HCL 750 MG in DEXTROSE 5%-WATER 250 ML IV SCH (17:36)
[2019-09-14] MEDS: OXYCODONE-ACETAMINOPHEN 5-325 MG TABLET PO PRN (19:34)
[2019-09-14] MEDS: LEVETIRACETAM 500 MG TABLET PO SCH (22:00)
[2019-09-15] MEDS: OXYCODONE-ACETAMINOPHEN 5-325 MG TABLET PO PRN ×5 (04:00→22:37)
[2019-09-15] MEDS: VANCOMYCIN HCL 750 MG in DEXTROSE 5%-WATER 250 ML IV SCH ×2 (05:04→18:00)
[2019-09-15] MEDS: PANTOPRAZOLE SODIUM 40 MG TABLET.DR PO SCH (05:05)
[2019-09-15 05:22] LABS: HEMOGLOBIN 11.1 g/dL (12.0-15.5); MEAN CORPUSCULAR HEMOGLOBIN 36.3 pg (27.0-33.4); MEAN CORPUSCULAR HGB CONC 34.7 g/dL (32.0-36.0); MEAN CORPUSCULAR VOLUME 105 fl (80-97); PLATELET COUNT 233 10^3/uL (150-450); RED BLOOD COUNT 3.06 10^6/uL (3.72-5.28); WHITE BLOOD COUNT 4.2 10^3/uL (4.0-10.5)
[2019-09-15 05:44] LABS: ANION GAP 5 (5-19); BLOOD UREA NITROGEN 13 mg/dL (7-20); CALCIUM 9.6 mg/dL (8.4-10.2); CARBON DIOXIDE 29 mmol/L (22-30); CHLORIDE 97 mmol/L (98-107); GLUCOSE 102 mg/dL (75-110); POTASSIUM 4.3 mmol/L (3.6-5.0)
[2019-09-15 05:57] LABS: ABSOLUTE LYMPHOCYTES# (MANUAL) 0.7 10^3/uL (0.5-4.7); ABSOLUTE MONOCYTES # (MANUAL) 0.3 10^3/uL (0.1-1.4); BAND NEUTROPHILS % (MANUAL) 2 % (3-5); BASOPHILS % (MANUAL) 0 % (0-2); EOSINOPHILS % (MANUAL) 0 % (0-6); LYMPHOCYTES % (MANUAL) 17 % (13-45); MONOCYTES % (MANUAL) 6 % (3-13); SEGMENTED NEUTROPHILS % (MAN) 75 % (42-78); TOTAL CELLS COUNTED 100
[2019-09-15 05:58] LABS: ANISOCYTOSIS SLIGHT; PLATELET COMMENT ADEQUATE
[2019-09-15] MEDS: FUROSEMIDE 20 MG TABLET PO SCH (08:46)
[2019-09-15] MEDS: DEXAMETHASONE 4 MG TABLET PO SCH (09:42)
[2019-09-15] MEDS: MULTIVITAMIN TABLET PO SCH (09:42)
[2019-09-15] MEDS: MICONAZOLE NITRATE 200 MG/SUPP (3 SUPP/BOX) VG SCH (09:42)
[2019-09-15] MEDS: LEVETIRACETAM 500 MG TABLET PO SCH ×2 (09:42→22:32)
[2019-09-15] MEDS: ENOXAPARIN SODIUM INJ 40 MG/0.4 ML DISP.SYRIN SUBCUT SCH (09:43)
[2019-09-15] MEDS: SILVER SULFADIAZINE 1% CREAM 50 GM TP SCH ×2 (09:44→18:01)
[2019-09-15] MEDS: NORMAL SALINE 1000 ML 1,000 ML IV PRN (09:56)
--- NOTE | 2019-09-15 15:43 | PDOC PROGRESS REPORT ---
Subjective Progress Note for:: 09/15/19 Subjective:: Patient states that she feels much better today Reason For Visit: LE CELLULITIS Physical Exam Vital Signs: Temp Pulse Resp BP Pulse Ox 97.5 F 81 17 123/62 99 09/15/19 11:49 09/15/19 11:49 09/15/19 11:49 09/15/19 11:49 09/15/19 11:49 Intake & Output 09/14/19 09/15/19 09/16/19 06:59 06:59 06:59 Intake Total 2975 480 Output Total 300 Balance 2975 180 Weight 87.997 kg 92.6 kg General appearance: PRESENT: no acute distress, cooperative, obese Head exam: PRESENT: atraumatic, normocephalic Eye exam: PRESENT: conjunctiva pink Mouth exam: PRESENT: moist, tongue midline Neck exam: ABSENT: JVD Respiratory exam: PRESENT: clear to auscultation dario, symmetrical, unlabored. ABSENT: accessory muscle use Cardiovascular exam: PRESENT: RRR, +S1, +S2 Vascular exam: PRESENT: normal capillary refill GI/Abdominal exam: PRESENT: normal bowel sounds, soft. ABSENT: distended, tenderness Rectal exam: PRESENT: deferred Extremities exam: ABSENT: calf tenderness Neurological exam: PRESENT: alert, awake, oriented to person, oriented to place, oriented to time, oriented to situation, CN II-XII grossly intact Psychiatric exam: PRESENT: appropriate affect, normal mood. ABSENT: agitated, anxious Skin exam: PRESENT: dry, normal color, warm Results Laboratory Results: 09/15/19 04:30 09/15/19 04:30 09/15/19 09/15/19 04:30 04:30 WBC 4.2 RBC 3.06 L Hgb 11.1 L Hct 32.0 L MCV 105 H MCH 36.3 H MCHC 34.7 RDW 15.0 H Plt Count 233 Seg Neutrophils % Not Reportable Sodium 131.0 L Potassium 4.3 Chloride 97 L Carbon Dioxide 29 Anion Gap 5 BUN 13 Creatinine 0.47 L Est GFR ( Amer) > 60 Glucose 102 Calcium 9.6 09/14/19 04:20 Troponin I < 0.012 NT-Pro-B Natriuret Pep 338 H Impressions: Chest/Abdomen CTA 09/14/19 06:43 IMPRESSION: NORMAL CTA OF THE CHEST. NO PULMONARY EMBOLI. SHORT INTERVAL STABILITY OF A LEFT LOWER LOBE MASS. Assessment and Plan - Diagnosis (1) Cellulitis Qualifiers: Site of cellulitis: extremity Site of cellulitis of extremity: lower extremity Laterality: unspecified laterality Qualified Code(s): L03.119 - Cellulitis of unspecified part of limb Is this a current diagnosis for this admission?: Yes Plan: Continue vancomycin per pharmacy protocol Continue silver sulfadiazine topically to LLE twice daily Blood cultures from 09/14/19 NG at 24 hours Will be conservative and transition from IV to p.o. antibiotics given patient's compromised immune state (chemotherapy) and presence of indwelling port (2) Lower extremity edema Is this a current diagnosis for this admission?: Yes Plan: Patient does not have significant LE edema currently Continue furosemide 20 mg p.o. daily, if LE edema becomes worse changed to IV (3) Squamous cell carcinoma Is this a current diagnosis for this admission?: Yes Plan: Treatment per outpatient oncology (4) Hyponatremia Is this a current diagnosis for this admission?: Yes Plan: Continue NS at 75 cc/h Liberalize sodium in diet [place] 1200 cc fluid restriction Monitor (5) Hypokalemia Is this a current diagnosis for this admission?: Yes Plan: Resolved Monitor (6) Anemia Is this a current diagnosis for this admission?: Yes Plan: Likely related to chemotherapy Consider transfusion for Hgb < 7.0 Monitor (7) Vaginal candidiasis Is this a current diagnosis for this admission?: Yes Plan: Vaginal culture with mixed morphology is consistent with transformation from normal vaginal samuel Continue miconazole vaginal suppository 200 mg daily - Time Time Spent with patient: 25-34 minutes Medications reviewed and adjusted accordingly: Yes Anticipated Discharge Disposition: Home, Self Care Anticipated Discharge Timeframe: within 72 hours
[2019-09-16] MEDS: OXYCODONE-ACETAMINOPHEN 5-325 MG TABLET PO PRN ×2 (04:16→08:04)
[2019-09-16] MEDS: VANCOMYCIN HCL 750 MG in DEXTROSE 5%-WATER 250 ML IV SCH (05:34)
[2019-09-16] MEDS: PANTOPRAZOLE SODIUM 40 MG TABLET.DR PO SCH (05:34)
[2019-09-16 06:21] LABS: BLOOD UREA NITROGEN 11 mg/dL (7-20); GLUCOSE 83 mg/dL (75-110); POTASSIUM 3.8 mmol/L (3.6-5.0)
[2019-09-16 06:27] LABS: CARBON DIOXIDE 30 mmol/L (22-30); CHLORIDE 99 mmol/L (98-107)
[2019-09-16 06:34] LABS: ANION GAP 2 (5-19)
[2019-09-16] MEDS: FUROSEMIDE 20 MG TABLET PO SCH (07:56)
--- NOTE | 2019-09-16 08:57 | PDOC PROGRESS REPORT ---
Subjective Progress Note for:: 09/16/19 Subjective:: Patient states that she feels well this morning. Complains of generalized pain as well as pain in her back Reason For Visit: LE CELLULITIS Physical Exam Vital Signs: Temp Pulse Resp BP Pulse Ox 98.1 F 95 16 132/72 H 100 09/15/19 15:38 09/15/19 15:38 09/15/19 15:38 09/15/19 15:38 09/15/19 15:38 Intake & Output 09/15/19 09/16/19 09/17/19 06:59 06:59 06:59 Intake Total 2975 4157 Output Total 1600 Balance 2975 2557 Weight 92.6 kg 94.5 kg General appearance: PRESENT: no acute distress, cooperative, obese Head exam: PRESENT: atraumatic, normocephalic Eye exam: PRESENT: conjunctiva pink Mouth exam: PRESENT: moist, tongue midline Neck exam: ABSENT: JVD Respiratory exam: PRESENT: clear to auscultation dario, symmetrical, unlabored. ABSENT: accessory muscle use Cardiovascular exam: PRESENT: RRR, +S1, +S2 Pulses: PRESENT: normal radial pulses Vascular exam: PRESENT: normal capillary refill GI/Abdominal exam: PRESENT: normal bowel sounds, soft. ABSENT: distended, tenderness Rectal exam: PRESENT: deferred Extremities exam: PRESENT: pedal edema. ABSENT: calf tenderness Neurological exam: PRESENT: alert, awake, oriented to person, oriented to place, oriented to time, oriented to situation, CN II-XII grossly intact. ABSENT: motor sensory deficit Psychiatric exam: PRESENT: appropriate affect, normal mood. ABSENT: agitated, anxious Skin exam: PRESENT: dry, normal color, warm, other - LLE with excoriation and ruptured bulla. Erythemic with serous drainage. RLE with intact skin. Cellulitis pattern stable Results Laboratory Results: 09/15/19 04:30 09/16/19 05:31 09/16/19 05:31 Sodium 130.9 L Potassium 3.8 Chloride 99 Carbon Dioxide 30 Anion Gap 2 L BUN 11 Creatinine 0.50 L Est GFR ( Amer) > 60 Glucose 83 Calcium 9.0 09/14/19 04:20 Troponin I < 0.012 NT-Pro-B Natriuret Pep 338 H Impressions: Chest/Abdomen CTA 09/14/19 06:43 IMPRESSION: NORMAL CTA OF THE CHEST. NO PULMONARY EMBOLI. SHORT INTERVAL STABILITY OF A LEFT LOWER LOBE MASS. Assessment and Plan - Diagnosis (1) Cellulitis Qualifiers: Site of cellulitis: extremity Site of cellulitis of extremity: lower ex tremity Laterality: unspecified laterality Qualified Code(s): L03.119 - Cellulitis of unspecified part of limb Is this a current diagnosis for this admission?: Yes Plan: Cellulitis pattern stable. LLE with area of excoriation and ruptured bulla. RLE skin intact with stable cellulitis pattern Continue vancomycin per pharmacy protocol Continue silver sulfadiazine topically to LLE twice daily Blood cultures from 09/14/19 NG at 48 hours Will be conservative and transition from IV to p.o. antibiotics given patient's compromised immune state (chemotherapy) and presence of indwelling port (2) Lower extremity edema Is this a current diagnosis for this admission?: Yes Plan: Patient still does not have significant LE edema currently Continue furosemide 20 mg p.o. daily, if LE edema becomes worse changed to IV (3) Squamous cell carcinoma Is this a current diagnosis for this admission?: Yes Plan: Treatment per outpatient oncology (4) Hyponatremia Is this a current diagnosis for this admission?: Yes Plan: NS stopped Sodium in diet liberalized Continue 1200 cc fluid restriction Request pharmacy to change vancomycin IVF to NS Discussed with both nursing staff and patient the importance of adhering to fluid restriction Monitor (5) Hypokalemia Is this a current diagnosis for this admission?: Yes Plan: Resolved Monitor (6) Anemia Is this a current diagnosis for this admission?: Yes Plan: Likely related to chemotherapy Consider transfusion for Hgb < 7.0 Repeat CBC in a.m. (7) Vaginal candidiasis Is this a current diagnosis for this admission?: Yes Plan: Vaginal culture with mixed morphology is consistent with transformation from normal vaginal samuel Continue miconazole vaginal suppository 200 mg daily for today, today will be day #3 -plan to discontinue tomorrow (8) Chronic pain syndrome Is this a current diagnosis for this admission?: Yes Plan: Patient complains of generalized and back pain [place] Patient received oxycodone 10 mg #90 on 06/01/2019. Her prior prescription was for the same on 03/30/2019 Discontinue oxycodone/APAP Start oxycodone 10 mg p.o. every 8 hours as needed (MME = 45) - Time Time Spent with patient: 25-34 minutes Medications reviewed and adjusted accordingly: Yes Anticipated Discharge Disposition: Home, Self Care Anticipated Discharge Timeframe: within 72 hours
[2019-09-16] MEDS: SILVER SULFADIAZINE 1% CREAM 50 GM TP SCH ×2 (09:22→18:02)
[2019-09-16] MEDS: LEVETIRACETAM 500 MG TABLET PO SCH ×2 (09:22→21:12)
[2019-09-16] MEDS: MULTIVITAMIN TABLET PO SCH (09:22)
[2019-09-16] MEDS: MICONAZOLE NITRATE 200 MG/SUPP (3 SUPP/BOX) VG SCH (09:23)
[2019-09-16] MEDS: DEXAMETHASONE 4 MG TABLET PO SCH (09:23)
[2019-09-16] MEDS: ENOXAPARIN SODIUM INJ 40 MG/0.4 ML DISP.SYRIN SUBCUT SCH (09:23)
[2019-09-16 11:16] LABS: BLOOD UREA NITROGEN 13 mg/dL (7-20); CALCIUM 8.6 mg/dL (8.4-10.2); GLUCOSE 84 mg/dL (75-110); POTASSIUM 3.6 mmol/L (3.6-5.0)
[2019-09-16 11:21] LABS: CARBON DIOXIDE 30 mmol/L (22-30); CHLORIDE 98 mmol/L (98-107)
[2019-09-16 11:23] LABS: HEMATOCRIT 28.1 % (36.0-47.0); HEMOGLOBIN 9.9 g/dL (12.0-15.5); MEAN CORPUSCULAR HEMOGLOBIN 36.7 pg (27.0-33.4); MEAN CORPUSCULAR HGB CONC 35.2 g/dL (32.0-36.0); MEAN CORPUSCULAR VOLUME 104 fl (80-97); PLATELET COUNT 217 10^3/uL (150-450); RED BLOOD COUNT 2.69 10^6/uL (3.72-5.28); RED CELL DISTRIBUTION WIDTH 15.1 % (11.5-14.0); WHITE BLOOD COUNT 3.9 10^3/uL (4.0-10.5)
[2019-09-16 11:26] LABS: ANION GAP 2 (5-19)
[2019-09-16 12:30] LABS: ABSOLUTE LYMPHOCYTES# (MANUAL) 0.5 10^3/uL (0.5-4.7); ABSOLUTE MONOCYTES # (MANUAL) 0.3 10^3/uL (0.1-1.4); BASOPHILS % (MANUAL) 0 % (0-2); EOSINOPHILS % (MANUAL) 0 % (0-6); LYMPHOCYTES % (MANUAL) 13 % (13-45); MONOCYTES % (MANUAL) 8 % (3-13); SEGMENTED NEUTROPHILS % (MAN) 79 % (42-78); TOTAL CELLS COUNTED 100
[2019-09-16 12:31] LABS: TOXIC GRANULATION 1+
[2019-09-16 12:32] LABS: ANISOCYTOSIS SLIGHT; PLATELET CLUMPS PRESENT; PLATELET COMMENT ADEQUATE; PLATELET LARGE PRESENT; POLYCHROMASIA SLIGHT
[2019-09-16] MEDS: OXYCODONE HCL IR 5 MG TABLET PO PRN (14:52)
[2019-09-16] MEDS: VANCOMYCIN HCL 750 MG in NORMAL SALINE 250 ML IV SCH (18:01)
[2019-09-17] MEDS: OXYCODONE HCL IR 5 MG TABLET PO PRN ×3 (01:15→18:02)
[2019-09-17] MEDS: VANCOMYCIN HCL 750 MG in NORMAL SALINE 250 ML IV SCH (05:20)
[2019-09-17] MEDS: PANTOPRAZOLE SODIUM 40 MG TABLET.DR PO SCH (05:21)
[2019-09-17 05:46] LABS: HEMATOCRIT 27.6 % (36.0-47.0); HEMOGLOBIN 9.6 g/dL (12.0-15.5); MEAN CORPUSCULAR HEMOGLOBIN 36.2 pg (27.0-33.4); MEAN CORPUSCULAR HGB CONC 34.6 g/dL (32.0-36.0); MEAN CORPUSCULAR VOLUME 104 fl (80-97); PLATELET COUNT 227 10^3/uL (150-450); RED BLOOD COUNT 2.65 10^6/uL (3.72-5.28); RED CELL DISTRIBUTION WIDTH 15.3 % (11.5-14.0); WHITE BLOOD COUNT 3.7 10^3/uL (4.0-10.5)
[2019-09-17 06:18] LABS: BLOOD UREA NITROGEN 15 mg/dL (7-20); CALCIUM 8.4 mg/dL (8.4-10.2); GLUCOSE 91 mg/dL (75-110); POTASSIUM 3.6 mmol/L (3.6-5.0)
[2019-09-17 06:24] LABS: CARBON DIOXIDE 29 mmol/L (22-30); CHLORIDE 100 mmol/L (98-107)
[2019-09-17 06:26] LABS: VANCOMYCIN,TROUGH 7.8 ug/mL (5.0-20.0)
[2019-09-17 06:27] LABS: ANION GAP 4 (5-19)
[2019-09-17 06:28] LABS: ABSOLUTE LYMPHOCYTES# (MANUAL) 0.7 10^3/uL (0.5-4.7); ABSOLUTE MONOCYTES # (MANUAL) 0.4 10^3/uL (0.1-1.4); BASOPHILS % (MANUAL) 0 % (0-2); EOSINOPHILS % (MANUAL) 0 % (0-6); LYMPHOCYTES % (MANUAL) 19 % (13-45); MONOCYTES % (MANUAL) 11 % (3-13); PLATELET COMMENT ADEQUATE; SEGMENTED NEUTROPHILS % (MAN) 70 % (42-78); TOTAL CELLS COUNTED 100
[2019-09-17 06:29] LABS: ANISOCYTOSIS SLIGHT
[2019-09-17 06:31] LABS: OVALOCYTES SLIGHT; SCHISTOCYTES SLIGHT
[2019-09-17] MEDS: FUROSEMIDE 20 MG TABLET PO SCH (08:41)
[2019-09-17] MEDS ORDERED: VANCOMYCIN HCL 500 MG in DEXTROSE 5%-WATER 100 ML IV ONE (09:00)
[2019-09-17] MEDS: MULTIVITAMIN TABLET PO SCH (09:41)
[2019-09-17] MEDS: DEXAMETHASONE 4 MG TABLET PO SCH (09:41)
[2019-09-17] MEDS: LEVETIRACETAM 500 MG TABLET PO SCH ×2 (09:41→23:12)
[2019-09-17] MEDS: ENOXAPARIN SODIUM INJ 40 MG/0.4 ML DISP.SYRIN SUBCUT SCH (09:42)
[2019-09-17] MEDS: MICONAZOLE NITRATE 200 MG/SUPP (3 SUPP/BOX) VG SCH (10:24)
[2019-09-17] MEDS: SILVER SULFADIAZINE 1% CREAM 50 GM TP SCH ×2 (10:24→17:59)
--- NOTE | 2019-09-17 16:05 | PDOC PROGRESS REPORT ---
Subjective Progress Note for:: 09/17/19 Subjective:: No complaints. Patient states that she feels well Reason For Visit: LE CELLULITIS Physical Exam Vital Signs: Temp Pulse Resp BP Pulse Ox 98.1 F 96 18 107/49 L 100 09/17/19 12:33 09/17/19 12:33 09/17/19 12:33 09/17/19 12:33 09/17/19 12:33 Intake & Output 09/16/19 09/17/19 09/18/19 06:59 06:59 06:59 Intake Total 4157 1190 260 Output Total 1600 2000 650 Balance 2557 -810 -390 Weight 94.5 kg 93.2 kg General appearance: PRESENT: no acute distress, cooperative, obese Head exam: PRESENT: atraumatic, normocephalic Eye exam: PRESENT: conjunctiva pink Mouth exam: PRESENT: moist, tongue midline Neck exam: ABSENT: JVD Respiratory exam: PRESENT: clear to auscultation dario, symmetrical, unlabored. ABSENT: accessory muscle use Cardiovascular exam: PRESENT: RRR, +S1, +S2 Vascular exam: PRESENT: normal capillary refill GI/Abdominal exam: PRESENT: normal bowel sounds, soft. ABSENT: distended, tenderness Rectal exam: PRESENT: deferred Extremities exam: PRESENT: pedal edema - Minimal pedal edema bilaterally. ABSENT: calf tenderness Musculoskeletal exam: PRESENT: ambulatory Neurological exam: PRESENT: alert, awake, oriented to person, oriented to place, oriented to time, oriented to situation, CN II-XII grossly intact. ABSENT: motor sensory deficit Psychiatric exam: PRESENT: appropriate affect, normal mood. ABSENT: agitated, anxious Skin exam: PRESENT: dry, normal color, warm Results Laboratory Results: 09/17/19 05:20 09/17/19 05:20 09/17/19 09/17/19 05:20 05:20 WBC 3.7 L RBC 2.65 L Hgb 9.6 L Hct 27.6 L MCV 104 H MCH 36.2 H MCHC 34.6 RDW 15.3 H Plt Count 227 Seg Neutrophils % Not Reportable Sodium 133.2 L Potassium 3.6 Chloride 100 Carbon Dioxide 29 Anion Gap 4 L BUN 15 Creatinine 0.44 L Est GFR ( Amer) > 60 Glucose 91 Calcium 8.4 09/14/19 06:21 Vaginal Gram Stain - Final 09/14/19 06:21 Vaginal Vaginal Culture - Final NORMAL VAGINAL DIEGO NO GROUP B STREPTOCOCCUS RECOVERED NO NEISSERIA GONORRHOEAE RECOVERED 09/14/19 04:20 Troponin I < 0.012 NT-Pro-B Natriuret Pep 338 H Impressions: Chest/Abdomen CTA 09/14/19 06:43 IMPRESSION: NORMAL CTA OF THE CHEST. NO PULMONARY EMBOLI. SHORT INTERVAL STABILITY OF A LEFT LOWER LOBE MASS. Assessment and Plan - Diagnosis (1) Cellulitis Qualifiers: Site of cellulitis: extremity Site of cellulitis of extremity: lower extremity Laterality: unspecified laterality Qualified Code(s): L03.119 - Cellulitis of unspecified part of limb Is this a current diagnosis for this admission?: Yes Plan: Cellulitis pattern improving. LLE with area of excoriation and ruptured bulla. RLE skin intact with stable cellulitis pattern Continue vancomycin per pharmacy protocol Continue silver sulfadiazine topically to LLE twice daily Blood cultures from 09/14/19 NG at 72 hours Will be conservative and transition from IV to p.o. antibiotics given patient's compromised immune state (chemotherapy) and presence of indwelling port (2) Lower extremity edema Is this a current diagnosis for this admission?: Yes Plan: Patient still does not have significant LE edema currently Continue furosemide 20 mg p.o. daily, if LE edema becomes worse changed to IV (3) Squamous cell carcinoma Is this a current diagnosis for this admission?: Yes Plan: Treatment per outpatient oncology (4) Hyponatremia Is this a current diagnosis for this admission?: Yes Plan: Serum sodium slightly improved today Sodium in diet liberalized Continue 1200 cc fluid restriction Patient's vancomycin is now being mixed in NS Reinforced with both nursing staff and patient the importance of adhering to fluid restriction Monitor (5) Hypokalemia Is this a current diagnosis for this admission?: Yes Plan: Resolved Monitor (6) Anemia Is this a current diagnosis for this admission?: Yes Plan: Likely related to chemotherapy Guaiac stool Check iron studies Consider transfusion for Hgb < 7.0 Monitor (7) Vaginal candidiasis Is this a current diagnosis for this admission?: Yes Plan: Normal vaginal diego noted in vaginal culture Stop miconazole vaginal suppository (8) Chronic pain syndrome Is this a current diagnosis for this admission?: Yes Plan: Patient complains of generalized and back pain [place] Patient received oxycodone 10 mg #90 on 06/01/2019. Her prior prescription was for the same on 03/30/2019 Continue oxycodone 10 mg p.o. every 8 hours as needed (MME = 45) - Time Time Spent with patient: 25-34 minutes Medications reviewed and adjusted accordingly: Yes Anticipated Discharge Disposition: Home, Self Care Anticipated Discharge Timeframe: within 72 hours
[2019-09-17] MEDS: VANCOMYCIN HCL 1,250 MG in NORMAL SALINE 250 ML IV SCH (17:59)
[2019-09-17] MEDS ORDERED: VANCOMYCIN HCL 1,250 MG in DEXTROSE 5%-WATER 250 ML IV SCH (18:00)
[2019-09-17] MEDS ORDERED: PIPERACILLIN/TAZOBACTAM 3.375 GM VIAL IV PRN (18:45)
--- NOTE | 2019-09-17 18:48 | Progress Note ---
Provider Note Provider Note: Patient took shower this afternoon and now LLE more erythemic with some slightly purulent drainage. Will broaden antibiotic coverage and add Zosyn 3.375 g IV every 6 hours
[2019-09-17] MEDS ORDERED: PIPERACILLIN/TAZOBACTAM 3.375 GM VIAL IV ONE (21:39)
[2019-09-17] MEDS: PIPERACILLIN SODIUM/TAZOBACTAM 3.375 GM in NORMAL SALINE 100 ML IV SCH (23:11)
[2019-09-18] MEDS: PIPERACILLIN SODIUM/TAZOBACTAM 3.375 GM in NORMAL SALINE 100 ML IV SCH ×4 (03:47→20:44)
[2019-09-18] MEDS: OXYCODONE HCL IR 5 MG TABLET PO PRN ×3 (03:55→20:49)
[2019-09-18] MEDS: VANCOMYCIN HCL 1,250 MG in NORMAL SALINE 250 ML IV SCH ×2 (05:29→17:26)
[2019-09-18] MEDS: PANTOPRAZOLE SODIUM 40 MG TABLET.DR PO SCH (05:30)
--- NOTE | 2019-09-18 09:20 | PDOC PROGRESS REPORT ---
Subjective Progress Note for:: 09/18/19 Subjective:: Patient has no complaints. She states that her lower extremities (site of cellulitis) feel better today Reason For Visit: LE CELLULITIS Physical Exam Vital Signs: Temp Pulse Resp BP Pulse Ox 97.6 F 88 18 131/85 H 100 09/18/19 03:30 09/18/19 03:30 09/18/19 03:30 09/18/19 03:30 09/18/19 03:30 Intake & Output 09/17/19 09/18/19 09/19/19 06:59 06:59 06:59 Intake Total 1190 1190 Output Total 1999 2100 Balance -810 -910 Weight 93.2 kg 96.7 kg General appearance: PRESENT: no acute distress, cooperative, morbidly obese Head exam: PRESENT: atraumatic, normocephalic Eye exam: PRESENT: conjunctiva pink Mouth exam: PRESENT: moist, tongue midline Neck exam: ABSENT: JVD Respiratory exam: PRESENT: clear to auscultation dario, symmetrical, unlabored. ABSENT: accessory muscle use Cardiovascular exam: PRESENT: RRR, +S1, +S2 Pulses: PRESENT: +1 pedal pulses bilateral Vascular exam: PRESENT: normal capillary refill GI/Abdominal exam: PRESENT: normal bowel sounds, soft. ABSENT: distended, tenderness Rectal exam: PRESENT: deferred Extremities exam: PRESENT: pedal edema, other - Continues to have pedal edema and mild edema below knees laterally. ABSENT: calf tenderness Musculoskeletal exam: PRESENT: ambulatory Neurological exam: PRESENT: alert, awake, oriented to person, oriented to place, oriented to time, oriented to situation, CN II-XII grossly intact Psychiatric exam: PRESENT: appropriate affect, normal mood. ABSENT: agitated, anxious Skin exam: PRESENT: dry, normal color, warm, other - LLE cellulitis pattern stable. Since patient took shower on 09/17/2019 some of the dry skin has sloughed off and the wound appears more erythemic. RLE sialitis pattern stable with no exudate Results Laboratory Results: 09/17/19 05:20 09/17/19 05:20 09/14/19 06:21 Vaginal Gram Stain - Final 09/14/19 06:21 Vaginal Vaginal Culture - Final NORMAL VAGINAL DIEGO NO GROUP B STREPTOCOCCUS RECOVERED NO NEISSERIA GONORRHOEAE RECOVERED 09/14/19 04:20 Troponin I < 0.012 NT-Pro-B Natriuret Pep 338 H Impressions: Chest/Abdomen CTA 09/14/19 06:43 IMPRESSION: NORMAL CTA OF THE CHEST. NO PULMONARY EMBOLI. SHORT INTERVAL STABILITY OF A LEFT LOWER LOBE MASS. Assessment and Plan - Diagnosis (1) Cellulitis Qualifiers: Site of cellulitis: extremity Site of cellulitis of extremity: lower extremity Laterality: unspecified laterality Qualified Code(s): L03.119 - Cellulitis of unspecified part of limb Is this a current diagnosis for this admission?: Yes Plan: Patient slightly leukopenic over past 2 days, likely related to chemotherapy Patient remains afebrile and nontoxic in appearance LLE with slightly purulent drainage from wound Antibiotics broadened on 09/17/2019 Continue vancomycin per pharmacy protocol Continue Zosyn 3.375 g IV every 6 hours Continue silver sulfadiazine topically to LLE twice daily Blood cultures from 09/14/19 NG at 4 days Will be conservative and transition from IV to p.o. antibiotics given patient's compromised immune state (chemotherapy) and presence of indwelling port (2) Lower extremity edema Is this a current diagnosis for this admission?: Yes Plan: Patient has only minimal LE edema Continue furosemide 20 mg p.o. daily, if LE edema becomes worse changed to IV (3) Squamous cell carcinoma Is this a current diagnosis for this admission?: Yes Plan: Treatment per outpatient oncology Will consult in the a.m. to follow along, patient states that the plan was for her to transition from chemotherapy to XRT (4) Hyponatremia Is this a current diagnosis for this admission?: Yes Plan: Serum sodium continues to improve Sodium in diet liberalized Continue 1200 cc fluid restriction Patient's vancomycin is now being mixed in NS Reinforced with both nursing staff and patient the importance of adhering to fluid restriction Monitor (5) Hypokalemia Is this a current diagnosis for this admission?: Yes Plan: Resolved Monitor (6) Anemia Is this a current diagnosis for this admission?: Yes Plan: Likely related to chemotherapy Guaiac stool, none recorded since ordered Iron studies pending Consider transfusion for Hgb < 7.0 Monitor (7) Vaginal candidiasis Is this a current diagnosis for this admission?: Yes Plan: Normal vaginal diego noted in vaginal culture Miconazole vaginal suppository stopped (8) Chronic pain syndrome Is this a current diagnosis for this admission?: Yes Plan: Patient complains of generalized and back pain [place] Patient received oxycodone 10 mg #90 on 06/01/2019. Her prior prescription was for the same on 03/30/2019 Continue oxycodone 10 mg p.o. every 8 hours as needed (MME = 45) - Time Time Spent with patient: 25-34 minutes Medications reviewed and adjusted accordingly: Yes Anticipated Discharge Disposition: Home, Self Care Anticipated Discharge Timeframe: Unable to determine at this time
[2019-09-18] MEDS: MULTIVITAMIN TABLET PO SCH (09:41)
[2019-09-18] MEDS: LEVETIRACETAM 500 MG TABLET PO SCH ×2 (09:41→21:32)
[2019-09-18] MEDS: DEXAMETHASONE 4 MG TABLET PO SCH ×2 (09:41→10:05)
[2019-09-18] MEDS: FUROSEMIDE 20 MG TABLET PO SCH (09:41)
[2019-09-18] MEDS: ENOXAPARIN SODIUM INJ 40 MG/0.4 ML DISP.SYRIN SUBCUT SCH (09:42)
[2019-09-18] MEDS: SILVER SULFADIAZINE 1% CREAM 50 GM TP SCH ×2 (09:43→17:25)
[2019-09-18 09:45] LABS: ANION GAP 5 (5-19); BLOOD UREA NITROGEN 15 mg/dL (7-20); CALCIUM 8.7 mg/dL (8.4-10.2); CARBON DIOXIDE 27 mmol/L (22-30); CHLORIDE 101 mmol/L (98-107); GLUCOSE 90 mg/dL (75-110); IRON(TIBC) 65.3 ug/dL (37-170); POTASSIUM 3.3 mmol/L (3.6-5.0)
[2019-09-18 09:52] LABS: ABSOLUTE RETICS # 0.061 10^6/uL (0.028-0.122); HEMATOCRIT 26.5 % (36.0-47.0); HEMOGLOBIN 9.4 g/dL (12.0-15.5); MEAN CORPUSCULAR HGB CONC 35.7 g/dL (32.0-36.0); MEAN CORPUSCULAR VOLUME 104 fl (80-97); PLATELET COUNT 228 10^3/uL (150-450); RED BLOOD COUNT 2.55 10^6/uL (3.72-5.28); RED CELL DISTRIBUTION WIDTH 15.1 % (11.5-14.0); RETICULOCYTE COUNT (AUTO) 2.39 % (0.66-2.85); WHITE BLOOD COUNT 3.7 10^3/uL (4.0-10.5)
--- NOTE | 2019-09-18 10:14 | Progress Note ---
Provider Note Provider Note: Spoke with Dr. Vasquez (patient's Oncologist). Given her current infection he will not plan additional cancer treatment at this time. He did recommend decreasing dexamethasone to 2 mg daily for 1 week then D/C.
[2019-09-18 10:16] LABS: ABSOLUTE LYMPHOCYTES# (MANUAL) 0.5 10^3/uL (0.5-4.7); ABSOLUTE MONOCYTES # (MANUAL) 0.4 10^3/uL (0.1-1.4); BAND NEUTROPHILS % (MANUAL) 4 % (3-5); BASOPHILS % (MANUAL) 0 % (0-2); EOSINOPHILS % (MANUAL) 1 % (0-6); LYMPHOCYTES % (MANUAL) 14 % (13-45); MONOCYTES % (MANUAL) 11 % (3-13); SEGMENTED NEUTROPHILS % (MAN) 70 % (42-78); TOTAL CELLS COUNTED 100
[2019-09-18 10:17] LABS: ANISOCYTOSIS SLIGHT; PLATELET COMMENT ADEQUATE; TOXIC GRANULATION 1+
[2019-09-18 10:49] LABS: FOLATE > 20.00 ng/mL (>2.76)
[2019-09-19] MEDS: PIPERACILLIN SODIUM/TAZOBACTAM 3.375 GM in NORMAL SALINE 100 ML IV SCH ×4 (02:57→20:25)
[2019-09-19] MEDS: PANTOPRAZOLE SODIUM 40 MG TABLET.DR PO SCH (06:32)
[2019-09-19] MEDS: DEXAMETHASONE 4 MG TABLET PO SCH (06:33)
[2019-09-19] MEDS: VANCOMYCIN HCL 1,250 MG in NORMAL SALINE 250 ML IV SCH ×2 (06:34→18:07)
[2019-09-19 07:43] LABS: BLOOD UREA NITROGEN 19 mg/dL (7-20); CALCIUM 8.8 mg/dL (8.4-10.2); CARBON DIOXIDE 28 mmol/L (22-30); GLUCOSE 84 mg/dL (75-110); POTASSIUM 3.5 mmol/L (3.6-5.0)
[2019-09-19 07:47] LABS: VANCOMYCIN,TROUGH 11.2 ug/mL (5.0-20.0)
[2019-09-19 07:49] LABS: ANION GAP 5 (5-19); CHLORIDE 100 mmol/L (98-107)
[2019-09-19] MEDS: FUROSEMIDE 20 MG TABLET PO SCH (08:15)
[2019-09-19] MEDS: OXYCODONE HCL IR 5 MG TABLET PO PRN ×2 (08:15→16:51)
[2019-09-19] MEDS: MULTIVITAMIN TABLET PO SCH (09:26)
[2019-09-19] MEDS: LEVETIRACETAM 500 MG TABLET PO SCH ×2 (09:26→21:52)
[2019-09-19] MEDS: ENOXAPARIN SODIUM INJ 40 MG/0.4 ML DISP.SYRIN SUBCUT SCH (09:27)
[2019-09-19] MEDS: SILVER SULFADIAZINE 1% CREAM 50 GM TP SCH ×2 (09:35→18:30)
[2019-09-19] MEDS ORDERED: POTASSIUM CHLORIDE 10 MEQ TABLET.ER PO ONE (10:00)
[2019-09-19] MEDS: LACTOBACILLUS ACIDOPHILUS 250 MG TAB PO SCH ×2 (14:45→18:07)
--- NOTE | 2019-09-19 20:59 | PDOC PROGRESS REPORT ---
Subjective Progress Note for:: 09/19/19 Subjective:: No complaints. Patient states that she feels well. Very eager for discharge Reason For Visit: LE CELLULITIS Physical Exam Vital Signs: Temp Pulse Resp BP Pulse Ox 97.9 F 92 20 125/64 100 09/19/19 16:34 09/19/19 16:34 09/19/19 16:34 09/19/19 16:34 09/19/19 16:34 Intake & Output 09/18/19 09/19/19 09/20/19 06:59 06:59 06:59 Intake Total 1190 1680 1780 Output Total 2100 801 Balance -910 1680 979 Weight 96.7 kg 98.7 kg General appearance: PRESENT: no acute distress, cooperative Head exam: PRESENT: atraumatic, normocephalic Eye exam: PRESENT: conjunctiva pink Mouth exam: PRESENT: moist, tongue midline Neck exam: ABSENT: JVD Respiratory exam: PRESENT: clear to auscultation dario, symmetrical, unlabored. ABSENT: accessory muscle use Cardiovascular exam: PRESENT: RRR, +S1, +S2 Vascular exam: PRESENT: normal capillary refill GI/Abdominal exam: PRESENT: normal bowel sounds, soft. ABSENT: distended, t enderness Rectal exam: PRESENT: deferred Extremities exam: PRESENT: pedal edema - Continues to have pedal edema and trace pretibial edema bilaterally. ABSENT: calf tenderness Neurological exam: PRESENT: alert, awake, oriented to person, oriented to place, oriented to time, oriented to situation, CN II-XII grossly intact. ABSENT: motor sensory deficit Psychiatric exam: PRESENT: appropriate affect, normal mood. ABSENT: agitated, anxious Skin exam: PRESENT: dry, normal color, warm - RLE cellulitis pattern stable. Skin intact. LLE with 2 (1 laterally and 1 medially) erythemic area. Skin sloughing but overall appearance improved from prior days Results Laboratory Results: 09/18/19 09:20 09/19/19 06:40 09/19/19 06:40 Sodium 132.5 L Potassium 3.5 L Chloride 100 Carbon Dioxide 28 Anion Gap 5 BUN 19 Creatinine 0.50 L Est GFR ( Amer) > 60 Glucose 84 Calcium 8.8 09/14/19 06:07 Blood Blood Culture - Final NO GROWTH IN 5 DAYS 09/14/19 04:20 Blood Blood Culture - Final NO GROWTH IN 5 DAYS 09/14/19 04:20 Troponin I < 0.012 NT-Pro-B Natriuret Pep 338 H Impressions: Chest/Abdomen CTA 09/14/19 06:43 IMPRESSION: NORMAL CTA OF THE CHEST. NO PULMONARY EMBOLI. SHORT INTERVAL STABILITY OF A LEFT LOWER LOBE MASS. Assessment and Plan - Diagnosis (1) Cellulitis Qualifiers: Site of cellulitis: extremity Site of cellulitis of extremity: lower extremity Laterality: unspecified laterality Qualified Code(s): L03.119 - Cellulitis of unspecified part of limb Is this a current diagnosis for this admission?: Yes Plan: Patient slightly leukopenic over past 3 days, likely related to chemotherapy Patient remains afebrile and nontoxic in appearance LLE with less drainage from wound, now serous Antibiotics broadened on 09/17/2019 Continue vancomycin per pharmacy protocol Continue Zosyn 3.375 g IV every 6 hours Continue silver sulfadiazine topically to LLE twice daily Blood cultures from 09/14/19 NG at 5 days Will be conservative and transition from IV to p.o. antibiotics given patient's compromised immune state (chemotherapy) and presence of indwelling port (2) Lower extremity edema Is this a current diagnosis for this admission?: Yes Plan: Patient has only minimal LE edema Continue furosemide 20 mg p.o. daily, if LE edema becomes worse changed to IV (3) Squamous cell carcinoma Is this a current diagnosis for this admission?: Yes Plan: Treatment per outpatient oncology Spoke with Dr. Vasquez on 09/18/2019 patient will not be a candidate for XRT or chemotherapy until 2 weeks after she has completed her antibiotic and cellulitis is under control. He will see her as an outpatient Dr. Vasquez requested that the patient's dexamethasone be decreased to 2 mg p.o. daily for 1 week then discontinued, dose was decreased on Thursday09/18/19 (4) Hyponatremia Is this a current diagnosis for this admission?: Yes Plan: Patient remains asymptomatic Sodium in diet liberalized Continue 1200 cc fluid restriction Patient's antibiotics are now being mixed in NS Reinforced with both nursing staff and patient the importance of adhering to fluid restriction Monitor (5) Hypokalemia Is this a current diagnosis for this admission?: Yes Plan: Replete Add scheduled KCl 20 mEq p.o. daily with patient's furosemide Monitor (6) Anemia Is this a current diagnosis for this admission?: Yes Plan: Likely related to chemotherapy Guaiac stool, none recorded since ordered Iron studies reviewed Consider transfusion for Hgb < 7.0 Monitor (7) Vaginal candidiasis Is this a current diagnosis for this admission?: Yes Plan: Normal vaginal samuel noted in vaginal culture Miconazole vaginal suppository stopped (8) Chronic pain syndrome Is this a current diagnosis for this admission?: Yes Plan: Patient complains of generalized and back pain [place] Patient received oxycodone 10 mg #90 on 06/01/2019. Her prior prescription was for the same on 03/30/2019 Continue oxycodone 10 mg p.o. every 8 hours as needed (MME = 45) - Time Time Spent with patient: 25-34 minutes Medications reviewed and adjusted accordingly: Yes Anticipated Discharge Disposition: Home, Self Care Anticipated Discharge Timeframe: TBD
[2019-09-20] MEDS: OXYCODONE HCL IR 5 MG TABLET PO PRN ×2 (03:20→12:16)
[2019-09-20] MEDS: PIPERACILLIN SODIUM/TAZOBACTAM 3.375 GM in NORMAL SALINE 100 ML IV SCH ×2 (03:21→09:34)
[2019-09-20] MEDS: PANTOPRAZOLE SODIUM 40 MG TABLET.DR PO SCH (05:35)
[2019-09-20] MEDS: VANCOMYCIN HCL 1,250 MG in NORMAL SALINE 250 ML IV SCH (05:35)
[2019-09-20] MEDS: DEXAMETHASONE 4 MG TABLET PO SCH (05:35)
[2019-09-20 06:40] LABS: HEMATOCRIT 30.4 % (36.0-47.0); HEMOGLOBIN 10.3 g/dL (12.0-15.5); MEAN CORPUSCULAR HEMOGLOBIN 35.8 pg (27.0-33.4); MEAN CORPUSCULAR HGB CONC 33.8 g/dL (32.0-36.0); MEAN CORPUSCULAR VOLUME 106 fl (80-97); PLATELET COUNT 299 10^3/uL (150-450); RED BLOOD COUNT 2.87 10^6/uL (3.72-5.28); RED CELL DISTRIBUTION WIDTH 15.4 % (11.5-14.0); WHITE BLOOD COUNT 4.4 10^3/uL (4.0-10.5)
[2019-09-20 06:50] LABS: ANION GAP 5 (5-19); BLOOD UREA NITROGEN 20 mg/dL (7-20); CARBON DIOXIDE 28 mmol/L (22-30); CHLORIDE 103 mmol/L (98-107); GLUCOSE 82 mg/dL (75-110)
[2019-09-20 07:07] LABS: ABSOLUTE LYMPHOCYTES# (MANUAL) 0.4 10^3/uL (0.5-4.7); ABSOLUTE MONOCYTES # (MANUAL) 0.2 10^3/uL (0.1-1.4); BAND NEUTROPHILS % (MANUAL) 1 % (3-5); BASOPHILS % (MANUAL) 0 % (0-2); EOSINOPHILS % (MANUAL) 1 % (0-6); LYMPHOCYTES % (MANUAL) 10 % (13-45); MONOCYTES % (MANUAL) 5 % (3-13); SEGMENTED NEUTROPHILS % (MAN) 83 % (42-78); TOTAL CELLS COUNTED 100
[2019-09-20 07:11] LABS: ANISOCYTOSIS SLIGHT; OVALOCYTES SLIGHT; POIKILOCYTOSIS SLIGHT; POLYCHROMASIA SLIGHT; TEAR DROP CELLS SLIGHT; TOXIC GRANULATION SLIGHT
[2019-09-20 07:12] LABS: PLATELET COMMENT ADEQUATE
[2019-09-20] MEDS: ENOXAPARIN SODIUM INJ 40 MG/0.4 ML DISP.SYRIN SUBCUT SCH (09:30)
[2019-09-20] MEDS: FUROSEMIDE 20 MG TABLET PO SCH (09:30)
[2019-09-20] MEDS: LACTOBACILLUS ACIDOPHILUS 250 MG TAB PO SCH ×2 (09:30→17:27)
[2019-09-20] MEDS: LEVETIRACETAM 500 MG TABLET PO SCH (09:30)
[2019-09-20] MEDS: SILVER SULFADIAZINE 1% CREAM 50 GM TP SCH (09:31)
[2019-09-20] MEDS: MULTIVITAMIN TABLET PO SCH (09:31)
[2019-09-20] MEDS ORDERED: POTASSIUM CHLORIDE 10 MEQ TABLET.ER PO SCH (10:00)
[2019-09-20 17:30] VITALS: BP 120/67
--- NOTE | 2019-09-22 19:15 | PDOC DISCHARGE SUMMARY ---
Impression - Admit/DC Date/PCP Admission Date/Primary Care Provider: 09/14/19 07:06 SOLANGE DIAZ MD Discharge Date: 09/20/19 - Discharge Diagnosis (1) Anemia Is this a current diagnosis for this admission?: Yes (2) Cellulitis Is this a current diagnosis for this admission?: Yes (3) Chronic pain syndrome Is this a current diagnosis for this admission?: Yes (4) Hypokalemia Is this a current diagnosis for this admission?: Yes (5) Hyponatremia Is this a current diagnosis for this admission?: Yes (6) Lower extremity edema Is this a current diagnosis for this admission?: Yes (7) Squamous cell carcinoma Is this a current diagnosis for this admission?: Yes (8) Vaginal candidiasis Is this a current diagnosis for this admission?: Yes - Additional Information Resuscitation Status: Full Code Discharge Diet: Regular Discharge Activity: Activity As Tolerated, Balance Activity w/Rest, Slowly Increase Activity Referrals: SOLANGE DIAZ MD [Primary Care Provider] - Follow up as needed Prescriptions: Cephalexin Monohydrate [Keflex 500 mg Capsule] 500 mg PO QID #16 capsule Silver Sulfadiazine [Silvadene 1% Cream 50 gm] 1 applic TP BID #1 tube Home Medications: Dexamethasone [Decadron 4 mg Tablet] 4 mg PO DAILY 09/14/19 Diphenhydramine HCl [Allergy Relief] 25 mg PO DAILY 09/14/19 Furosemide [Lasix 20 mg Tablet] 20 mg PO QAM 09/14/19 Levetiracetam [Keppra 500 mg Tablet] 500 mg PO Q12 09/14/19 Multivitamin [Tab-A-Bonnie (Multiple Vitamin) Tablet] 1 tab PO DAILY 09/14/19 Omeprazole Magnesium [Prilosec Otc] 20 mg PO BID 09/14/19 Cephalexin Monohydrate [Keflex 500 mg Capsule] 500 mg PO QID #16 capsule 09/20/19 Silver Sulfadiazine [Silvadene 1% Cream 50 gm] 1 applic TP BID #1 tube 09/20/19 History of Present Illiness History of Present Illness: Per H&P by Marin Rosen: BLAIR FULTON is a 59 year old female with PMH significant for 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 Patient reports that she initially had a "lump" on her neck which was biopsied and revealed squamous cell carcinoma. Subsequently she underwent a work-up and was found to have metastatic disease in both her lungs and brain. Given these findings the patient reports she has had biopsies of the lung as well as a craniotomy. She has received both chemo and XRT. Her last chemo treatment was last month and her last radiation treatment was approximately 1 year ago. The patient reports that they are planning to start radiation again next month. Patient also reports that she has had LE edema for which she has received diuretic therapy (furosemide) and other than this the patient denies significant past medical history. The patient states that she had compression stockings prescribed for her LE edema and noticed that she started having significant pain in her left ankle and when she removed the compression stockings noticed that there was redness and that the skin was broken on the left ankle area. As a result, she presented to the ED for further evaluation and treatment. The ED physician ordered a CTA of the chest and abdomen which revealed no PE. It also revealed interval stability of the left lower lobe lung mass. Patient was given an initial dose of IV vancomycin in the ED and the hospital service was consulted with the patient for further evaluation and treatment. Hospital Course Hospital Course: The patient was admitted to the medical floor on continuous cardiac telemetry. She was empirically placed on IV vancomycin and Zosyn with Silvadene topical dressing to the open bulla on her left lower extremity. The patient's hyponatremia and hypokalemia were corrected. Anemia remained stable; likely secondary to malignancy and ongoing chemotherapy treatment. The patient's cellulitis gradually improved. On day of discharge, she was noted to have continued close to lateral edema, light pink circumferential erythema, and open/unroofed bullae to the anterior surface of bilateral lower extremities with scant serous drainage. Patient reports significant improvement as compared to day of admission. Adamant regarding discharge to home. She confirms that she will be able to reach her feet to provide wound care (was able to demonstrate this to me). She reports that she lives with family who will also be able to assist with wound care and monitoring. She is discharged home in stable condition. She is advised to follow up with her PCP and Oncologist next week Complete course of antibiotics. Return to the emergency departmen as needed for concerning symptoms. Physical Exam Vital Signs: Temp Pulse Resp BP Pulse Ox 98.1 F 83 18 120/67 100 09/20/19 17:30 09/20/19 17:30 09/20/19 17:30 09/20/19 17:30 09/20/19 17:30 Intake & Output 09/21/19 09/22/19 09/23/19 06:59 06:59 06:59 Intake Total 1130 Balance 1130 General appearance: PRESENT: no acute distress, cooperative, morbidly obese, well-developed, well-nourished Head exam: PRESENT: atraumatic, normocephalic Eye exam: PRESENT: conjunctiva pink, EOMI, PERRLA. ABSENT: scleral icterus Mouth exam: PRESENT: moist, tongue midline Respiratory exam: PRESENT: clear to auscultation dario, symmetrical, unlabored. ABSENT: rales, rhonchi, wheezes Cardiovascular exam: PRESENT: RRR. ABSENT: diastolic murmur, rubs, systolic murmur Pulses: PRESENT: normal dorsalis pedis pul Vascular exam: PRESENT: normal capillary refill Extremities exam: PRESENT: full ROM, pedal edema, +2 edema - BLE. ABSENT: calf tenderness, clubbing Musculoskeletal exam: PRESENT: ambulatory Neurological exam: PRESENT: alert, awake, oriented to person, oriented to place, oriented to time, oriented to situation, CN II-XII grossly intact. ABSENT: motor sensory deficit Psychiatric exam: PRESENT: appropriate affect, normal mood. ABSENT: homicidal ideation, suicidal ideation Skin exam: PRESENT: dry, erythema, warm, other - Circumferential, light pink, edema to bilateral lower extremities. +2 nonpitting edema. Unroofed bulla with scant serous drainage noted. Improved. ABSENT: cyanosis, rash Results Laboratory Results: WBC 4.4 10^3/uL (4.0-10.5) 09/20/19 04:35 RBC 2.87 10^6/uL (3.72-5.28) L 09/20/19 04:35 Hgb 10.3 g/dL (12.0-15.5) L 09/20/19 04:35 Hct 30.4 % (36.0-47.0) L 09/20/19 04:35 MCV 106 fl (80-97) H 09/20/19 04:35 MCH 35.8 pg (27.0-33.4) H 09/20/19 04:35 MCHC 33.8 g/dL (32.0-36.0) 09/20/19 04:35 RDW 15.4 % (11.5-14.0) H 09/20/19 04:35 Plt Count 299 10^3/uL (150-450) 09/20/19 04:35 Lymph % (Auto) Not Reportable 09/20/19 04:35 Barber % (Auto) Not Reportable 09/20/19 04:35 Eos % (Auto) Not Reportable 09/20/19 04:35 Baso % (Auto) Not Reportable 09/20/19 04:35 Reticulocyte # 0.061 10^6/uL (0.028-0.122) 09/18/19 09:20 Absolute Neuts (auto) Not Reportable 09/20/19 04:35 Absolute Lymphs (auto) Not Reportable 09/20/19 04:35 Absolute Monos (auto) Not Reportable 09/20/19 04:35 Absolute Eos (auto) Not Reportable 09/20/19 04:35 Absolute Basos (auto) Not Reportable 09/20/19 04:35 Total Counted 100 09/20/19 04:35 Seg Neutrophils % Not Reportable 09/20/19 04:35 Seg Neuts % (Manual) 83 % (42-78) H 09/20/19 04:35 Band Neutrophils % 1 % (3-5) L 09/20/19 04:35 Lymphocytes % (Manual) 10 % (13-45) L 09/20/19 04:35 Monocytes % (Manual) 5 % (3-13) 09/20/19 04:35 Eosinophils % (Manual) 1 % (0-6) 09/20/19 04:35 Basophils % (Manual) 0 % (0-2) 09/20/19 04:35 Abs Neuts (Manual) 3.7 10^3/uL (1.7-8.2) 09/20/19 04:35 Abs Lymphs (Manual) 0.4 10^3/uL (0.5-4.7) L 09/20/19 04:35 Abs Monocytes (Manual) 0.2 10^3/uL (0.1-1.4) 09/20/19 04:35 Absolute Eos (Manual) 0.0 10^3/uL (0.0-0.6) 09/20/19 04:35 Abs Basophils (Manual) 0.0 10^3/uL (0.0-0.2) 09/20/19 04:35 Toxic Granulation SLIGHT 09/20/19 04:35 Clumped Platelets PRESENT 09/16/19 10:50 Large Platelets PRESENT 09/16/19 10:50 Platelet Comment ADEQUATE 09/20/19 04:35 Polychromasia SLIGHT 09/20/19 04:35 Poikilocytosis SLIGHT 09/20/19 04:35 Anisocytosis SLIGHT 09/20/19 04:35 Macrocytosis 1+ 09/18/19 09:20 Tear Drop Cells SLIGHT 09/20/19 04:35 Ovalocytes SLIGHT 09/20/19 04:35 Schistocytes SLIGHT 09/17/19 05:20 Retic Count (auto) 2.39 % (0.66-2.85) 09/18/19 09:20 PT 12.6 SEC (11.4-15.4) 09/14/19 04:20 INR 0.92 09/14/19 04:20 APTT 31.3 SEC (23.5-35.8) 09/14/19 04:20 Sodium 135.6 mmol/L (137-145) L 09/20/19 04:35 Potassium 4.0 mmol/L (3.6-5.0) 09/20/19 04:35 Chloride 103 mmol/L (98-107) 09/20/19 04:35 Carbon Dioxide 28 mmol/L (22-30) 09/20/19 04:35 Anion Gap 5 (5-19) 09/20/19 04:35 BUN 20 mg/dL (7-20) 09/20/19 04:35 Creatinine 0.50 mg/dL (0.52-1.25) L 09/20/19 04:35 Est GFR ( Amer) > 60 (>60) 09/20/19 04:35 Est GFR (MDRD) Non-Af > 60 (>60) 09/20/19 04:35 Glucose 82 mg/dL (75-110) 09/20/19 04:35 Calcium 9.0 mg/dL (8.4-10.2) 09/20/19 04:35 Iron 65.3 ug/dL (37-170) 09/18/19 09:20 TIBC 244 ug/dL (250-450) L 09/18/19 09:20 % Saturation 27 % 09/18/19 09:20 Ferritin 267.00 ng/mL (11.1-264.0) H 09/18/19 09:20 Total Bilirubin 0.5 mg/dL (0.2-1.3) 09/14/19 04:20 Direct Bilirubin 0.0 mg/dL (0.0-0.4) 09/14/19 04:20 Neonat Total Bilirubin Not Reportable 09/14/19 04:20 Neonat Direct Bilirubin Not Reportable 09/14/19 04:20 Neonat Indirect Bili Not Reportable 09/14/19 04:20 AST 23 U/L (14-36) 09/14/19 04:20 ALT 28 U/L (<35) 09/14/19 04:20 Alkaline Phosphatase 127 U/L (38-126) H 09/14/19 04:20 Troponin I < 0.012 ng/mL 09/14/19 04:20 NT-Pro-B Natriuret Pep 338 pg/mL (<125) H 09/14/19 04:20 Total Protein 6.5 g/dL (6.3-8.2) 09/14/19 04:20 Albumin 3.7 g/dL (3.5-5.0) 09/14/19 04:20 Vitamin B12 297.0 pg/mL (239-931) 09/18/19 09:20 Folate > 20.00 ng/mL (>2.76) 09/18/19 09:20 Urine Color STRAW 09/14/19 04:16 Urine Appearance CLEAR 09/14/19 04:16 Urine pH 7.0 (5.0-9.0) 09/14/19 04:16 Ur Specific [place] 1.003 09/14/19 04:16 Urine Protein NEGATIVE mg/dL (NEGATIVE) 09/14/19 04:16 Urine Glucose (UA) NEGATIVE mg/dL (NEGATIVE) 09/14/19 04:16 Urine Ketones NEGATIVE mg/dL (NEGATIVE) 09/14/19 04:16 Urine Blood NEGATIVE (NEGATIVE) 09/14/19 04:16 Urine Nitrite (Reflex) NEGATIVE (NEGATIVE) 09/14/19 04:16 Urine Bilirubin NEGATIVE (NEGATIVE) 09/14/19 04:16 Urine Urobilinogen NEGATIVE mg/dL (<2.0) 09/14/19 04:16 Leukocyte Esterase Rfl NEGATIVE (NEGATIVE) 09/14/19 04:16 Urine RBC (Auto) 1 /HPF 09/14/19 04:16 Urine WBC (Reflex) 5 /HPF 09/14/19 04:16 Urine Mucus (Auto) RARE /LPF 09/14/19 04:16 Urine Ascorbic Acid NEGATIVE (NEGATIVE) 09/14/19 04:16 Trichomonas (Wet Prep) NO TRICHOMONAS SEEN 09/14/19 06:21 Vaginal WBC NO WBCS SEEN 09/14/19 06:21 Vaginal RBC NO RBCS SEEN 09/14/19 06:21 Vaginal Yeast NO YEAST SEEN 09/14/19 06:21 Time Trough Drawn 0640 09/19/19 06:40 Vancomycin Trough 11.2 ug/mL (5.0-20.0) 09/19/19 06:40 Chlamydia DNA (PCR) NOT DETECTED (NOT DETECT) 09/14/19 06:21 N.gonorrhoeae DNA (PCR) NOT DETECTED (NOT DETECT) 09/14/19 06:21 09/14/19 04:20 Troponin I < 0.012 NT-Pro-B Natriuret Pep 338 H Impressions: Chest/Abdomen CTA 09/14/19 06:43 IMPRESSION: NORMAL CTA OF THE CHEST. NO PULMONARY EMBOLI. SHORT INTERVAL STABILITY OF A LEFT LOWER LOBE MASS. Plan Plan of Treatment: Patient is discharged home in stable condition. She is advised to follow-up with her primary care provider within 1 week and with her oncologist as scheduled. Complete full course of antibiotic therapy. Take other medications as prescribed. Keep legs elevated when not ambulatory. Return to the emergency department as needed for concerning symptoms Time Spent: Greater than 30 Minutes Stroke Is this a Stroke Patient?: No Acute Heart Failure - Is this a Heart Failure Patient?: No
== END 2019-09-20 17:54 | disposition home or self-care (01) | DRG 603 ==
LOC: ER 01:34 → EH 07:06 → 5 08:36
PROVIDERS: ADMIT Emergency Medicine; ATTEND Registered Nurse
DX: L03.116 Cellulitis of left lower limb (principal); C79.31 Secondary malignant neoplasm of brain; C78.02 Secondary malignant neoplasm of left lung; E87.1 Hypo-osmolality and hyponatremia; L03.115 Cellulitis of right lower limb; E87.6 Hypokalemia; D63.0 Anemia in neoplastic disease; D64.81 Anemia due to antineoplastic chemotherapy; C76.0 Malignant neoplasm of head, face and neck; B37.3 Candidiasis of vulva and vagina; G89.4 Chronic pain syndrome
CPT/HCPCS: 36415; 71275; 80048; 80053; 80202; 81001; 82607; 82728; 82746; 83540; 83550; 83880; 84484; 85025; 85045; 85610; 85730; 87040; 87070; 87205; 87210; 87491; 87591; 93005; 93010; 96365; 99285; J1642; J1650; J2543; J3370; J3490; J7030; J7050; J7060; J8540

== ENCOUNTER → 2019-11-08 | Outpatient (CLI) | payer MEDICAID ==
--- NOTE | 2019-11-08 16:20 | RADIOLOGY REPORT (SQ) ---
EXAM DESCRIPTION: ARTERIAL LOWER EXTREM BILAT IMAGES COMPLETED DATE/TIME: 11/08/2019 3:48 pm REASON FOR STUDY: LLE ULCER L97.222 NON-PRESSURE CHRONIC ULCER OF LEFT CALF W FAT LAYER COMPARISON: None. TECHNIQUE: Dynamic and static malik scale and color images acquired of the lower extremity arteries. Additional selected spectral images recorded. LIMITATIONS: Unable to obtain ABIs due to body habitus and wounds. FINDINGS: RIGHT LEG: INFLOW ARTERIES: Not imaged. FEMORAL ARTERIES:Multiphasic waveforms. Normal, no velocity elevation to suggest focal stenosis. Norm al color Doppler evaluation. No aneurysm. POPLITEAL ARTERY:Multiphasic waveforms. Normal, no velocity elevation to suggest focal stenosis. Norm al color Doppler evaluation. No aneurysm. PATENT TIBIOPERONEAL TRUNK AND 3 VESSEL RUNOFF: Yes. OTHER: No other significant finding. LEFT LEG: INFLOW ARTERIES: Not imaged. FEMORAL ARTERIES:Multiphasic waveforms. Normal, no velocity elevation to suggest focal stenosis. Norm al color Doppler evaluation. No aneurysm. POPLITEAL ARTERY:Multiphasic waveforms. Normal, no velocity elevation to suggest focal stenosis. Norm al color Doppler evaluation. No aneurysm. PATENT TIBIOPERONEAL TRUNK AND 3 VESSEL RUNOFF: Yes. OTHER: No other significant finding. IMPRESSION: No significant stenosis. TECHNICAL DOCUMENTATION: JOB ID: [id number] 2010 [employer]- All Rights Reserved Reading location - IP/workstation name: [email or web address]
== END ==
LOC: SP 13:29
PROVIDERS: ATTEND Nurse Practitioner Family
DX: L97.222 Non-pressure chronic ulcer of left calf with fat layer exposed (principal)
CPT/HCPCS: 93925

== ENCOUNTER 2019-12-02 16:46 | Emergency (ER) | payer MEDICAID, OTHER ==
[2019-12-02] MEDS ORDERED: DEXAMETHASONE SOD PHOS INJ 10 MG/1 ML VIAL IV ONE ×2 (17:12→17:18)
[2019-12-02] MEDS ORDERED: LEVETIRACETAM 1000 MG/NACL-ISO 1,000 MG/100 ML RTUPB IV ONE (17:19)
--- NOTE | 2019-12-02 17:41 | RADIOLOGY REPORT (SQ) ---
EXAM DESCRIPTION: CT HEAD WITHOUT IMAGES COMPLETED DATE/TIME: 12/02/2019 5:26 pm REASON FOR STUDY: Seizure, brain tumor COMPARISON: 07/31/2019 TECHNIQUE: Axial images acquired through the brain without intravenous contrast. Images reviewed wi th bone, brain and subdural windows. Additional sagittal and coronal reconstructions were generated. Images stored on PACS. All CT scanners at this facility use dose modulation, iterative reconstruction, and/or weight based d osing when appropriate to reduce radiation dose to as low as reasonably achievable (ALARA). [facility]: Dose Right [facility]: CareDose [facility]: Dose Right [facility]: Teradose 4D [facility]: [employer] RADIATION DOSE: CT Rad equipment meets quality standard of care and radiation dose reduction techniq ues were employed. CTDIvol: 53.2 mGy. DLP: 991 mGy-cm. mGy. LIMITATIONS: None. FINDINGS: VENTRICLES: Normal size and contour. CEREBRUM: No masses. No hemorrhage. No midline shift. Encephalomalacia in the right frontal lobe. No evidence for acute infarction. Few scattered areas of low density in the white matter most likely chronic small vessel ischemic changes. CEREBELLUM: No masses. No hemorrhage. No alteration of density. No evidence for acute infarction. EXTRAAXIAL SPACES: No fluid collections. No masses. ORBITS AND GLOBE: No intra- or extraconal masses. Normal contour of globe without masses. CALVARIUM: Right frontal craniotomy. PARANASAL SINUSES: No fluid or mucosal thickening. SOFT TISSUES: No mass or hematoma. OTHER: No other significant finding. IMPRESSION: Right frontal craniotomy with encephalomalacia in the right frontal lobe. Mild chronic microvascular ischemia. No acute intracranial imaging findings. EVIDENCE OF ACUTE STROKE: NO. COMMENT: Quality ID # [id number]: Final reports with documentation of one or more dose reduction techniques (e.g., Automated exposure control, adjustment of the mA and/or kV according to patient size, use of iterative reconstruction technique) TECHNICAL DOCUMENTATION: JOB ID: [id number] 2010 [employer]- All Rights Reserved Reading location - IP/workstation name: [email or web address]
[2019-12-02 18:26] LABS: ALKALINE PHOSPHATASE 125 U/L (38-126); ANION GAP 13 (5-19); ASPARTATE AMINO TRANSFERASE 25 U/L (14-36); BILIRUBIN,DIRECT 0.3 mg/dL (0.0-0.4); BILIRUBIN,TOTAL 0.5 mg/dL (0.2-1.3); BLOOD UREA NITROGEN 16 mg/dL (7-20); CALCIUM 9.3 mg/dL (8.4-10.2); CARBON DIOXIDE 22 mmol/L (22-30); CHLORIDE 101 mmol/L (98-107); GLUCOSE 98 mg/dL (75-110); POTASSIUM 3.8 mmol/L (3.6-5.0); TOTAL PROTEIN 6.1 g/dL (6.3-8.2)
[2019-12-02 18:30] LABS: APPEARANCE,URINE CLOUDY; BILIRUBIN,URINE NEGATIVE (NEGATIVE); COLOR,URINE YELLOW; GLUCOSE, URINE NEGATIVE (NEGATIVE); KETONES,URINE NEGATIVE (NEGATIVE); PROTEIN,URINE NEGATIVE (NEGATIVE); URINE SPECIFIC GRAVITY 1.011; UROBILINOGEN,URINE NEGATIVE mg/dL (<2.0)
--- NOTE | 2019-12-02 18:45 | ER Document Report ---
ED Seizure - General Chief Complaint: Seizure Stated Complaint: POSSIBLE SEIZURE Time Seen by Provider: 12/02/19 17:06 Mode of Arrival: Wheelchair Notes: 59-year-old woman who has a history of stage IV metastatic CA with brain lesions. Apparently today found on the floor near the chair where she had slipped off the chair. The son note that she seemed to be more confused later and on the way to the hospital was noted to have seizure activity. Patient had a history of seizures in the past and been on Keppra 500 mg twice daily. She also had received dexamethasone for edema associated with the brain lesions. Doni clinton is off both medications at this time and presently ictal. - Related Data Allergies/Adverse Reactions: No Known Allergies Allergy (Verified 09/14/19 19:53) Past Medical History - Social History Smoking Status: Unknown if Ever Smoked Chew tobacco use (# tins/day): No Frequency of alcohol use: None Drug Abuse: None Family History: Reviewed & Not Pertinent, Other Patient has homicidal ideation: No - Past Medical History Cardiac Medical History: Denies: Hx Coronary Artery Disease, Hx Heart Attack, Hx Hypercholesterolemia, Hx Hypertension Pulmonary Medical History: Denies: Hx Asthma, Hx Bronchitis, Hx COPD, Hx Pneumonia, Hx Sleep Apnea Neurological Medical History: Denies: Hx Cerebrovascular Accident, Hx Seizures Renal/ Medical History: Denies: Hx Peritoneal Dialysis Musculoskeletal Medical History: Denies Hx Arthritis Skin Medical History: Denies Hx Eczema, Denies Hx Psoriasis Psychiatric Medical History: Denies: Hx Depression Past Surgical History: Reports: Hx Section - x2, Hx Orthopedic Surgery - l knee, Hx Vascular Surgery - Chest port, Other - Lung biopsy and craniotomy - Immunizations Hx Diphtheria, Pertussis, Tetanus Vaccination: - UNKNOWN Review of Systems - Review of Systems -: Yes ROS unobtainable due to patient's medical condition - Unable to obtain due to postictal state. Physical Exam - Vital signs Vitals: Resp BP Pulse Ox 14 141/72 H 97 12/02/19 16:47 12/02/19 16:47 12/02/19 16:47 - Notes Notes: PHYSICAL EXAMINATION: Physical Exam: General: Obtunded 59-year-old post seizure. HEENT: NC/AT, pupils equal round and reactive to light, MM moist,nares clear, oropharynx clear, airway patent Neck: supple, no adenopathy, no masses. Good range of motion Lungs: clear, no wheezing, no rales no rhonchi CVS: Regular rate and rhythm no murmur gallop or rub Abdomen: Soft, active, nontender, no masses, no hepatosplenomegaly Ext: No edema, clubbing or cyanosis. Neuro: Obtunded and postictal Skin: Intact no open lesions, no rash Course - Re-evaluation Re-evalutation: 12/02/19 18:52 I have contacted the oncologist on-call Dr. Sebastian, states that the patient should be on Keppra, agrees that a head CT should be done and if there are neurosurgical concerns [facility] should be contacted. CT was obtained, there are no intracranial findings which would not need a neurosurgical intervention. Patient was loaded with Keppra 1 g IV. I have also reviewed the labs which have returned. Patient has a history of chronic pyuria and interventions have been to no avail in the past. Urine culture has been ordered we will hold antibiotics for now. 12/02/19 21:24 Patient was given nebulizer treatment and bolus of 500 cc of normal saline blood pressure improved oxygenation improved the son is comfortable taking her home. - Vital Signs Vital signs: Temp Pulse Resp BP Pulse Ox 98.9 F 100 19 97/75 L 98 12/02/19 17:19 12/02/19 17:19 12/02/19 20:01 12/02/19 20:00 12/02/19 20:01 - Laboratory Result Diagrams: 12/02/19 18:40 12/02/19 16:10 Laboratory results interpreted by me: 12/02/19 12/02/19 12/02/19 16:10 18:00 18:40 RBC 3.31 L Hgb 10.7 L Hct 30.9 L RDW 16.9 H Lymph % (Auto) 6.6 L Absolute Lymphs (auto) 0.4 L Seg Neutrophils % 84.1 H Sodium 135.7 L Total Protein 6.1 L Albumin 3.0 L Leukocyte Esterase Rfl MODERATE H - Diagnostic Test Radiology reviewed: Image reviewed, Reports reviewed Radiology results interpreted by me: 12/02/19 18:[address] 12/02/19 17:09 IMPRESSION: Right frontal craniotomy with encephalomalacia in the right frontal lobe. Mild chronic microvascular ischemia. No acute intracranial imaging findings. EVIDENCE OF ACUTE STROKE: NO. Discharge - Discharge Clinical Impression: Seizure, Seizure disorder, Squamous cell carcinoma, Metastatic cancer to brain Condition: Good Disposition: HOME, SELF-CARE Instructions: Seizure, Known Epileptic ([facility]) Additional Instructions: You were seen in the emergency department today with seizure and post seizure status. Please continue the Keppra as prescribed also you may use your home inhaler as previously prescribed. Please follow-up with your oncologist as per your appointment. If you have further difficulties or other concerns you may return to the emergency department for further evaluation and treatment HOME CARE INSTRUCTIONS & INFORMATION: Thank you for choosing us for your medical needs. We hope you're satisfied with the care you received. After you leave, you must properly care for your problem and, at the same time, observe its progress. Any condition can change. Some illnesses can change rapidly over hours or days. If your condition worsens, return to the Emergency Department or see your physician promptly. ABOUT YOUR X-RAYS AND EKG'S: If you had an EKG or X-rays taken, they have been read by the Emergency Physician. The X-rays and EKG's will also be read by a Radiologist or [employer] within 24 hours. If discrepancies are noted, you will be notified by telephone. Please be certain the ED has a correct telephone number & address where you can be reached. Also, realize that some fractures or abnormalities do not show up on initial X-rays. If your symptoms continue, see your physician. ABOUT YOUR LABORATORY TEST: If you had laboratory tests, the results have been reviewed by the Emergency Physician. Some test results (for example cultures) may not be available for several days. You will be contacted if any test result shows you need additional treatment. Please be certain the ED has a correct telephone number and address where you can be reached. ABOUT YOUR MEDICATIONS: You will receive instructions on how to take your medicine on the prescription label you receive. Additional information may be provided by the Pharmacy. If you have questions afterwards, call the ED for cla rification or further instructions. Some prescribed medications may cause drowsiness. Do not perform tasks such as driving a car or operating machinery without consulting your Pharmacist. If you feel you need a refill of pain medication, your condition will need re-evaluation. Please do not call for a refill of any medication. ABOUT YOUR SIGNATURE: Signature of this document acknowledges to followin. Understanding that you received emergency treatment and that you may be released before al medical problems are known or treated. Please be certain the ED has a correct phone number & address where you can be reached. 2. Acknowledgement that you will arrange for follow-up care as recommended. 3. Authorization for the Emergency Physician to provide information to your follow-up Physician in order to maximize your care. AT ANY TIME, IF YOUR SYMPTOMS CHANGE SIGNIFICANTLY OR WORSEN OR YOU DEVELOP NEW SYMPTOMS, RETURN TO THE EMERGENCY DEPARTMENT IMMEDIATELY FOR RE-EVALUATION. OUR GOAL IS TO PROVIDE EXCELLENT MEDICAL CARE! WE HOPE THAT WE HAVE MET YOUR EXPECTATIONS DURING YOUR EMERGENCY DEPARTMENT VISIT AND THAT YOU FEEL YOU HAVE RECEIVED EXCELLENT CARE! Prescriptions: Levetiracetam [Keppra 500 mg Tablet] 500 mg PO Q12 #60 tablet
[2019-12-02 19:12] LABS: ABSOLUTE LYMPHOCYTES (AUTO) 0.4 10^3/uL (0.5-4.7); ABSOLUTE MONOCYTES (AUTO) 0.5 10^3/uL (0.1-1.4); ABSOLUTE NEUT (AUTO) 5.5 10^3/uL (1.7-8.2); BASOPHILS % (AUTO) 0.7 % (0-2); EOSINOPHILS % (AUTO) 0.4 % (0-6); HEMATOCRIT 30.9 % (36.0-47.0); HEMOGLOBIN 10.7 g/dL (12.0-15.5); LYMPHOCYTES % (AUTO) 6.6 % (13-45); MEAN CORPUSCULAR HEMOGLOBIN 32.4 pg (27.0-33.4); MEAN CORPUSCULAR HGB CONC 34.7 g/dL (32.0-36.0); MONOCYTES % (AUTO) 8.2 % (3-13); PLATELET COUNT 378 10^3/uL (150-450); RED BLOOD COUNT 3.31 10^6/uL (3.72-5.28); RED CELL DISTRIBUTION WIDTH 16.9 % (11.5-14.0); SEGMENTED NEUTROPHILS % (AUTO) 84.1 % (42-78); TOTAL CELLS COUNTED % (AUTO) 100 %; WHITE BLOOD COUNT 6.6 10^3/uL (4.0-10.5)
[2019-12-02 19:13] LABS: MEAN CORPUSCULAR VOLUME 93 fl (80-97)
[2019-12-02 19:39] LABS: INTERNATIONAL RATION (INR) 1.11; PROTHROMBIN TIME 14.5 SEC (11.4-15.4)
[2019-12-02 19:40] LABS: PARTIAL THROMBOPLASTIN TIME 34.1 SEC (23.5-35.8)
[2019-12-02] MEDS ORDERED: NORMAL SALINE 500 ML IV ONE (20:25)
[2019-12-02] MEDS ORDERED: IPRATROPIUM/ALBUTEROL 0.5-2.5 MG/3 ML AMPUL NEB ONE (20:33)
[2019-12-02 20:54] VITALS: BP 97/75
[2019-12-02] MEDS ORDERED: LEVETIRACETAM 500 MG TABLET PO ONE ×2 (21:27→21:30)
--- NOTE | 2019-12-03 06:59 | EKG REPORT ---
SEVERITY:- NORMAL ECG - SINUS RHYTHM : Confirmed by: Rad Shin MD 03-Dec-2019 06:59:23
== END 2019-12-02 22:44 | disposition home or self-care (01) ==
LOC: ER 16:46
DX: G40.909 Epilepsy, unspecified, not intractable, without status epilepticus (principal); C80.1 Malignant (primary) neoplasm, unspecified; C79.31 Secondary malignant neoplasm of brain; R82.81 Pyuria
CPT/HCPCS: 93005; 94640; 99285; 96361; 96375; 96365; 36415; 87086; 85025; 85610; 85730; 87088; 80053; 81001; 87186; 70450; 93010; J3490; J7040; J1100; J1953

== ENCOUNTER 2020-01-13 13:22 | Emergency (ER) | payer MEDICAID, OTHER ==
[2020-01-13] MEDS ORDERED: DEXAMETHASONE SOD PHOS INJ 10 MG/1 ML VIAL IV ONE ×2 (13:53→15:43)
--- NOTE | 2020-01-13 13:53 | ER Document Report ---
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 Patient this past August a craniotomy with resection as well as fiber knife brain surgery at [facility]. She is currently taken 3 doses of Keytruda chemotherapy and was supposed to receive the fourth dose today. The patient did not show up and when they called the home supposedly were told that the patient had some left upper extremity and lower extremity weakness for the last 2 days and then today started develop a left facial droop. EMS confirms that it was 48 hours of symptom onset. I did call directly and spoke to the oncologist for the patient who reiterated the above story. Patient herself is uncertain when her brain surgery was. She denies any pain. She states she does have weakness to her left side but is unsure when it started. ROS: See HPI All other review of systems reviewed and otherwise negative Reviewed vital signs and nursing note as charted by RN. PHYSICAL EXAM: CONSTITUTIONAL: Patient is alert and answers questions and is aware of the year and month HEAD: Normocephalic; atraumatic EYES: PERRL; full extraocular range of motion; no nystagmus ENT: Left facial droop present NECK: Supple without meningismus; non-tender CARD: Regular rate and rhythm; no murmurs; symmetric distal pulses RESP: Normal chest excursion without splinting or tachypnea; breath sounds clear and equal bilaterally; no wheezes, no rhonchi, no rales ABD/GI: Normal bowel sounds; non-distended; soft, non-tender BACK: The back appears normal and is non-tender to palpation EXT: Normal ROM in all joints; non-tender to palpation; no edema SKIN: No acute lesions noted NEURO: Left facial droop; NIH score is an 8 with some weakness to the left arm, left leg, with some decrease sensation to the side PSYCH: The patient's mood and manner are appropriate. Grooming and personal hygiene are appropriate. TRAVEL OUTSIDE OF THE [place] IN LAST 30 DAYS: No - Related Data Allergies/Adverse Reactions: levofloxacin [From Levaquin] Allergy (Verified 01/13/20 14:19) Past Medical History - Social History Smoking Status: Unknown if Ever Smoked Family History: Reviewed & Not Pertinent, Other - Past Medical History Cardiac Medical History: Denies: Hx Coronary Artery Disease, Hx Heart Attack, Hx Hypercholesterolemia, Hx Hypertension Pulmonary Medical History: Denies: Hx Asthma, Hx Bronchitis, Hx COPD, Hx Pneumonia, Hx Sleep Apnea Neurological Medical History: Denies: Hx Cerebrovascular Accident, Hx Seizures Renal/ Medical History: Denies: Hx Peritoneal Dialysis Musculoskeletal Medical History: Denies Hx Arthritis Skin Medical History: Denies Hx Eczema, Denies Hx Psoriasis Psychiatric Medical History: Denies: Hx Depression Past Surgical History: Reports: Hx Section - x2, Hx Orthopedic Surgery - l knee, Hx Vascular Surgery - Chest port, Other - Lung biopsy and craniotomy - Immunizations Hx Diphtheria, Pertussis, Tetanus Vaccination: - UNKNOWN Course - Re-evaluation Re-evalutation: Given the above history and physical examination, patient was taken expeditiously to CT scan with laboratory values drawn. Given the time course as well as the patient's previous/recent brain surgery, I do not believe that the patient is a TPA candidate. Concerned about the possibility of a bleed, new metastases, or stroke primarily. 01/13/20 13:52 CT scan as recorded. Vasogenic edema. Some minimal midline shift. I will provide Decadron. I did speak directly to the oncologist who would like to get a CT scan of the chest abdomen pelvis as well to evaluate for multiple metastases to see if the patient should require repeat brain surgery or hospice care. 01/13/20 13:57 EKG shows heart rate of 90, normal sinus rhythm, normal axis, no ST elevation or depression. 01/13/20 14:[address] imaging as recorded, Decadron has been provided. No change in exam. Patient still denies any pain. We have forwarded the images to [facility]. I have ordered a CT scan of the chest abdomen and pelvis as discussed above. 01/13/20 15:43 I spoke to the neurosurgeon directly. He has asked me to provide another 10 mg of Decadron intravenously. This would make a total of 20. He is pleased that we did order a CT scan of the chest abdomen and pelvis. We will PowerChart NextIO e images as well. Interpretation is pending. He states he will have the patient transferred to the neuro intensive ICU. - Laboratory Result Diagrams: 01/13/20 13:47 01/13/20 13:47 Critical Care Note - Critical Care Note Total time excluding time spent on procedures (mins): 40 Discharge - Discharge Clinical Impression: Intracranial mass, Left arm weakness Condition: Fair Disposition: [facility], 1928–1983 Referrals: SOLANGE DIAZ MD [Primary Care Provider] - Follow up as needed
--- NOTE | 2020-01-13 13:56 | RADIOLOGY REPORT (SQ) ---
EXAM DESCRIPTION: CT HEAD WITHOUT IMAGES COMPLETED DATE/TIME: 01/13/2020 1:35 pm REASON FOR STUDY: Left arm weakness/facial droop/brain mets COMPARISON: CT 12/02/2019 MR 08/08/2019 TECHNIQUE: Axial images acquired through the brain without intravenous contrast. Images reviewed wi th bone, brain and subdural windows. Additional sagittal and coronal reconstructions were generated. Images stored on PACS. All CT scanners at this facility use dose modulation, iterative reconstruction, and/or weight based d osing when appropriate to reduce radiation dose to as low as reasonably achievable (ALARA). [facility]: Dose Right [facility]: CareDose [facility]: Dose Right [facility]: Teradose 4D [facility]: [employer] RADIATION DOSE: CT Rad equipment meets quality standard of care and radiation dose reduction techniq ues were employed. CTDIvol: 53.2 mGy. DLP: 1070 mGy-cm. mGy. LIMITATIONS: None. FINDINGS: VENTRICLES: Normal size and contour. CEREBRUM: There is an extensive area of vasogenic edema in the right cerebral hemisphere. This resul ts in 10 mm subfalcine midline shift. No hemorrhage. Normal malik/white matter differentiation in the left cerebral hemisphere. CEREBELLUM: No masses. No hemorrhage. No alteration of density. No evidence for acute infarction. EXTRAAXIAL SPACES: No fluid collections. No masses. ORBITS AND GLOBE: No intra- or extraconal masses. Normal contour of globe without masses. CALVARIUM: Craniotomy changes on the right. PARANASAL SINUSES: No fluid or mucosal thickening. SOFT TISSUES: No mass or hematoma. OTHER: No other significant finding. IMPRESSION: Large area of vasogenic edema in the right cerebral hemisphere highly suggestive of cere bral metastasis. There is 10 mm midline shift. EVIDENCE OF ACUTE STROKE: NO. COMMENT: Pertinent positive or negative findings of the imaging study reported as a CRITICAL EXAM oksana GUEVARA MD at13:49 on 01/13/2020. Category of Critical Exam: Stroke alert. Quality ID # 436: Final reports with documentation of one or more dose reduction techniques (e.g., Au tomated exposure control, adjustment of the mA and/or kV according to patient size, use of iterative reconstruction technique) TECHNICAL DOCUMENTATION: JOB ID: [id number] 2010 [employer] All Rights Reserved Reading location - IP/workstation name: [email or web address]
[2020-01-13 13:58] LABS: ABSOLUTE BASOPHILS # (AUTO) 0.1 10^3/uL (0.0-0.2); ABSOLUTE LYMPHOCYTES (AUTO) 0.8 10^3/uL (0.5-4.7); ABSOLUTE MONOCYTES (AUTO) 0.6 10^3/uL (0.1-1.4); ABSOLUTE NEUT (AUTO) 6.7 10^3/uL (1.7-8.2); BASOPHILS % (AUTO) 0.9 % (0-2); EOSINOPHILS % (AUTO) 0.3 % (0-6); HEMATOCRIT 34.6 % (36.0-47.0); HEMOGLOBIN 11.8 g/dL (12.0-15.5); LYMPHOCYTES % (AUTO) 9.8 % (13-45); MEAN CORPUSCULAR HEMOGLOBIN 29.7 pg (27.0-33.4); MEAN CORPUSCULAR HGB CONC 34.1 g/dL (32.0-36.0); MEAN CORPUSCULAR VOLUME 87 fl (80-97); MONOCYTES % (AUTO) 7.2 % (3-13); PLATELET COUNT 341 10^3/uL (150-450); RED BLOOD COUNT 3.97 10^6/uL (3.72-5.28); RED CELL DISTRIBUTION WIDTH 15.4 % (11.5-14.0); SEGMENTED NEUTROPHILS % (AUTO) 81.8 % (42-78); TOTAL CELLS COUNTED % (AUTO) 100 %; WHITE BLOOD COUNT 8.2 10^3/uL (4.0-10.5)
--- NOTE | 2020-01-13 13:59 | RADIOLOGY REPORT (SQ) ---
EXAM DESCRIPTION: CHEST SINGLE VIEW IMAGES COMPLETED DATE/TIME: 01/13/2020 1:36 pm REASON FOR STUDY: Left arm weakness/facial droop/brain mets COMPARISON: 07/31/2019 EXAM PARAMETERS: NUMBER OF VIEWS: One view. TECHNIQUE: Single frontal radiographic view of the chest acquired. RADIATION DOSE: NA LIMITATIONS: None. FINDINGS: LUNGS AND PLEURA: Cannot exclude a couple rounded nodules in the left lower lung field. MEDIASTINUM AND HILAR STRUCTURES: No masses. Contour normal. HEART AND VASCULAR STRUCTURES: Heart normal in size. Normal vasculature. BONES: No acute findings. HARDWARE: Injection port on the right. OTHER: No other significant finding. IMPRESSION: Cannot exclude pulmonary metastatic disease. TECHNICAL DOCUMENTATION: JOB ID: [id number] 2010 [employer]- All Rights Reserved Reading location - IP/workstation name: [email or web address]
[2020-01-13 14:12] LABS: PROTHROMBIN TIME 15.6 SEC (11.4-15.4)
[2020-01-13 14:13] LABS: INTERNATIONAL RATION (INR) 1.22; PARTIAL THROMBOPLASTIN TIME 33.9 SEC (23.5-35.8)
[2020-01-13 14:22] LABS: ALBUMIN 3.8 g/dL (3.5-5.0); ALKALINE PHOSPHATASE 96 U/L (38-126); ANION GAP 8 (5-19); ASPARTATE AMINO TRANSFERASE 24 U/L (14-36); BILIRUBIN,DIRECT 0.2 mg/dL (0.0-0.4); BILIRUBIN,TOTAL 0.6 mg/dL (0.2-1.3); BLOOD UREA NITROGEN 14 mg/dL (7-20); CALCIUM 10.2 mg/dL (8.4-10.2); CARBON DIOXIDE 27 mmol/L (22-30); CHLORIDE 104 mmol/L (98-107); CREATINE KINASE 48 U/L (30-135); GLUCOSE 99 mg/dL (75-110); POTASSIUM 3.6 mmol/L (3.6-5.0); TOTAL PROTEIN 6.7 g/dL (6.3-8.2)
[2020-01-13 14:34] LABS: CREATINE KINASE MB 0.79 ng/mL (<4.55)
[2020-01-13 14:37] LABS: TROPONIN I < 0.012 ng/mL
--- NOTE | 2020-01-13 16:03 | RADIOLOGY REPORT (SQ) ---
EXAM DESCRIPTION: CT CHEST WITH; CT ABD/PELVIS WITH IV ONLY IMAGES COMPLETED DATE/TIME: 01/13/2020 3:20 pm; 01/13/2020 3:19 pm REASON FOR STUDY: tr1; eval for extensive metastatic disease per onc CONTRAST TYPE AND DOSE: Contrast/concentration: Isovue 350.00 mmol/ml; Total Contrast Delivered: 100 .0 ml; Total Saline Delivered: 70.0 ml RENAL FUNCTION: Creatinine 0.40 milligrams/deciliter. COMPARISON: CT of the chest from 09/14/2019 and PET from 03/01/2019. TECHNIQUE: CT scan of the chest performed using helical scanning technique with dynamic intravenous contrast injection. Images reviewed with lung, soft tissue and bone windows. Reconstructed coronal a nd sagittal MPR images reviewed. All images stored on PACS. All CT scanners at this facility use dose modulation, iterative reconstruction, and/or weight based d osing when appropriate to reduce radiation dose to as low as reasonably achievable (ALARA). [facility]: Dose Right [facility]: CareDose [facility]: Dose Right [facility]: Teradose 4D [facility]: [employer] RADIATION DOSE: CT Rad equipment meets quality standard of care and radiation dose reduction techniq ues were employed. CTDIvol: 17.2 - 24.7 mGy. DLP: 2657 mGy-cm.. LIMITATIONS: None. FINDINGS: AXILLAE: No adenopathy. CHEST WALL: No adenopathy, mass or hematoma. LUNGS AND PLEURA: Status post right lower lobectomy. The perihilar mass in the left lower lobe (imag e 28 of series 3) has increased in size and it measures 3.1 x 2.2 cm compared to 1.9 x 1.4 cm on the prior CT. The 2.2 x 1.9 cm nodule in the inferior anterior aspect of the left lower lobe that abuts the interlobar fissure (image 36 of series 4) has also increased in size and it measures 2.2 x 1.9 cm compared to 1.7 x 1.5 cm on the prior CT. The pleural based nodules along the interlobar fissure an d in the lingula (image 30 and image 29 of series 4) are new ; the nodules measure 2.3 and 2.1 cm in long axis diameter respectively. The pleural thickening or fluid along the posteromedial aspect of t he right hemithorax (image 31 of series 3) is unchanged. There is no acute consolidation, ground-gla ss opacification or pneumothorax. THYROID: No adenopathy or mass. HILAR AND MEDIASTINAL STRUCTURES: The thoracic esophagus is patulous. There is no adenopathy or mass . AORTA AND GREAT VESSELS: No aneurysm or dissection of the thoracic aorta. PULMONARY ARTERIES: The CT is nondiagnostic to exclude pulmonary emboli. HEART: Mild atherosclerotic calcification of the coronary arteries. There is no pericardial effusion . HARDWARE AND LIFELINES: Intact right IJ approach single-lumen port. BONES: Age-indeterminate compression fracture of the inferior endplate of the T9 vertebral body. OTHER: No other finding. IMPRESSION: 1. Findings consistent with progression of metastatic disease as detailed above. 2. Age-indeterminate compression fracture of the inferior endplate of the ulna and vertebral body wi th less than 25% loss of the vertebral body height and no retropulsion. Consider correlation with a bone scan. COMPARISON: None. RADIATION DOSE: CT Rad equipment meets quality standard of care and radiation dose reduction techniq ues were employed. CTDIvol: 17.2 - 24.7 mGy. DLP: 2657 mGy-cm. TECHNIQUE: CT scan of the abdomen and pelvis performed with intravenous and oral contrast using tristen fermin scanning technique with dynamic intravenous contrast injection. Images reviewed with lung, soft tissue and bone windows. Reconstructed coronal and sagittal MPR images reviewed. Delayed images for evaluation of the urinary system also acquired and evaluated. All images stored on PACS. All CT scanners at this facility use dose modulation, iterative reconstruction, and/or weight based d osing when appropriate to reduce radiation dose to as low as reasonably achievable (ALARA). [facility]: Dose Right [facility]: [employer] [facility]: Dose Right [facility]: Teradose 4D [facility]: [employer] FINDINGS: LIVER: The morphology of the liver is noncirrhotic. There is no hepatic mass. SPLEEN: No splenomegaly or splenic mass. PANCREAS: No acute gross abnormality of the pancreas. GALLBLADDER: No acute gross abnormality of the pancreas. ADRENAL GLANDS: No mass or asymmetry. RIGHT KIDNEY AND URETER: No solid mass, hydronephrosis, nephrolithiasis, hydroureter or ureterolithia sis. LEFT KIDNEY AND URETER: No solid mass, hydronephrosis, nephrolithiasis, hydroureter or ureterolithias is. AORTA AND VESSELS: Mild atherosclerotic calcification of the abdominal aorta. RETROPERITONEUM: No retroperitoneal adenopathy, hemorrhage or mass. LARGE AND SMALL BOWEL: Colonic diverticulosis. There is no bowel obstruction, bowel wall thickening or pericolonic/ perienteric inflammation. APPENDIX: Unable to identify the appendix. There is no pericecal inflammation. ABDOMINAL WALL: Stable nodular soft tissue thickening in the ventral abdominal wall (images 100 and 1 08 of series 3). PERITONEAL CAVITY: No mesenteric adenopathy, free intraperitoneal fluid or mesenteric/omental inflamm ation PELVIS: The wall of the urinary bladder is diffusely thickened. There is no abnormality of the uteru s or adnexa that is apparent on CT. BONES: Age-indeterminate compression fracture of the superior endplate of the L3 vertebral body with less than 25% loss of the vertebral body height and insufficiency fracture of the left sacral ala. T here is degenerative spondylosis and facet joint arthropathy of the lumbar spine. OTHER: No other findings. IMPRESSION: 1. No acute intra-abdominal abnormality. 2. Age indeterminate compression fracture of the superior endplate of the L3 vertebral body with less than 25% loss of the vertebral body height - consider correlation below bone scan. 3. Insufficiency fracture of the left sacral ala. COMMENT: This report was called to HIMA GUEVARA MD at15:57 on 01/13/2020. TECHNICAL DOCUMENTATION: JOB ID: [id number] Quality ID # 436: Final reports with documentation of one or more dose reduction techniques (e.g., Au tomated exposure control, adjustment of the mA and/or kV according to patient size, use of iterative reconstruction technique) 2010 [employer]- All Rights Reserved Reading location - IP/workstation name: [email or web address]
[2020-01-13 21:36] VITALS: BP 139/78
--- NOTE | 2020-01-14 07:22 | EKG REPORT ---
SEVERITY:- NORMAL ECG - SINUS RHYTHM : Confirmed by: Rad Shin MD 14-Jan-2020 07:21:01
== END 2020-01-13 20:00 | disposition short-term general hospital (02) ==
LOC: ER 13:22
DX: R53.1 Weakness (principal); R29.810 Facial weakness; C76.0 Malignant neoplasm of head, face and neck; C78.02 Secondary malignant neoplasm of left lung; C79.31 Secondary malignant neoplasm of brain; R20.8 Other disturbances of skin sensation; M84.48XA Pathological fracture, other site, initial encounter for fracture; Z79.899 Other long term (current) drug therapy; Z98.890 Other specified postprocedural states; Z88.1 Allergy status to other antibiotic agents
CPT/HCPCS: 93005; 99285; 96375; 96365; 36415; 82553; 82962; 82550; 85025; 85610; 85730; 80053; 84484; 71045; 70450; 71260; 74177; 93010; J1100